=== PATIENT | female | born 1945 | race African-American/Black ===

== ENCOUNTER 2016-06-01 00:04 | Emergency (ER) | payer MEDICARE, OTHER ==
[2016-06-01 00:53] LABS: Basophils # (A) 0.1 k/uL (0-0.2); Basophils % (A) 1 %; CH 32.6; CHCM 33.7; Eosinophils # (A) 0.8 k/uL (0-0.7); Eosinophils % (A) 10 %; HCT 45.8 % (34.0-46.0); HDW 2.49; Luc # (Auto) 0.26; Luc % (Auto) 3; Lymphocytes # (A) 1.4 k/uL (1.0-4.8); Lymphocytes % (A) 18 %; MCH 31.7 pg (25.0-35.0); MCHC 32.6 g/dL (31.0-37.0); MCV 97.2 fL (80.0-100.0); Mean Platelet Volume 7.7; Monocytes # (A) 0.4 k/uL (0-1.0); Monocytes % (A) 5 %; Neutrophils % (A) 62 %; RBC 4.72 m/uL (3.80-5.40); RDW 13.6 % (11.5-15.5); WBC 8.1 k/uL (3.8-10.6); WBC (Perox) 7.89
[2016-06-01 01:00] LABS: Appearance,Urine Cloudy (Clear); Bilirubin,Urine 2+ (Negative); Glucose,Urine (UA) Negative (Negative); Ketones,Urine Negative (Negative); Leukocyte Esterase,Urine Large (Negative); Mucus,Urine Occasional /hpf; Nitrite,Urine Negative (Negative); PH, Urine 5.5 (5.0-8.0); Particle Count 12824; Protein,Urine Trace (Negative); RBC,Urine 10 /hpf (0-5); Specific Gravity,Urine 1.021 (1.001-1.035); Squamous Epithelial Cell,Urine 6 /hpf (0-4); UA Billing (MACRO vs. MICRO) MICRO
[2016-06-01 01:01] LABS: ALT 34 U/L (9-52); AST 27 U/L (14-36); Alkaline Phosphatase 119 U/L (38-126); Anion Gap 14 mmol/L; Blood Urea Nitrogen 13 mg/dL (7-17); Calcium 9.5 mg/dL (8.4-10.2); Carbon Dioxide 24 mmol/L (22-30); Chloride 103 mmol/L (98-107); Glucose 110 mg/dL (74-99); Non-African American GFR(MDRD) >60 (>60 ml/min/1.73 sqM); Potassium 3.3 mmol/L (3.5-5.1); Sodium 141 mmol/L (137-145); Total Bilirubin 0.9 mg/dL (0.2-1.3); Total Protein 8.6 g/dL (6.3-8.2)
--- NOTE | 2016-06-01 01:26 | XR ---
EXAM: XR Right Hip With Pelvis When Performed, 2 or 3 Views. CLINICAL HISTORY: Reason: Pain TECHNIQUE: Two or three views of the right hip, with pelvis when performed. COMPARISON: No relevant prior studies available. FINDINGS: Bones/joints: Degenerative changes of bilateral hips and the lower lumbar spine. No acute fracture or malalignment. Soft tissues: Unremarkable. IMPRESSION: Osteoarthritis of bilateral hips.
--- NOTE | 2016-06-01 01:39 | ED ---
Psych HPI - General Chief Complaint: Psychiatric Symptoms Stated Complaint: mental health Time Seen by Provider: 06/01/16 00:34 Source: patient, RN notes reviewed Mode of arrival: wheelchair Limitations: no limitations - History of Present Illness Initial Comments: 70-year-old female presents emergency Department chief complaint depression, suicidal ideations. Patient states that everything her life is very negative and states that she just feels hopeless. Patient does see Dr. Glasgow her psychiatrist. Patient's medications with no help. Patient states she has a plan to pull a gun on police so they shoot her to . Patient denies any homicidal thoughts. Patient states she has been using marijuana. Patient denies any alcohol use. Patient denies any chest pain, shortness breath, headache, dizziness, back pain, nausea vomiting diarrhea constipation. Patient has chronic right hip pain in which she has not seen orthopedic doctor for as directed. - Related Data Home Medications Medication Instructions Recorded Confirmed Cetirizine HCl [Zyrtec] 10 mg PO DAILY 07/29/13 03/16/16 Venlafaxine HCl [Effexor XR] 150 mg PO DAILY 07/29/13 03/16/16 amLODIPine BESYLATE [Norvasc] 5 mg PO DAILY 10/16/13 03/16/16 Quinapril HCl [Accupril] 20 mg PO DAILY 12/25/14 03/16/16 Metoprolol Succinate [Toprol XL] 25 mg PO DAILY 03/16/16 03/16/16 Previous Rx's Medication Instructions Recorded Calcium Carbonate [Calcium] 600 mg PO BID #60 tablet 09/04/15 Thiamine HCl [Vitamin B-1] 100 mg PO DAILY #60 tablet 09/04/15 Nystatin 100,000 Unit/ml Susp 4 ml PO QID #50 ml 03/16/16 [Mycostatin Oral Susp] Omeprazole [PriLOSEC] 40 mg PO AC-BRKFST #14 capsule. 03/16/16 Allergies Allergy/AdvReac Type Severity Reaction Status Date / Time Tetanus Vaccines and Toxoid Allergy Mild Swelling Verified 06/01/16 00:19 tetracycline Allergy Nausea,ABDOMINAL Verified 06/01/16 00:19 PAIN Review of Systems ROS Statement: Those systems with pertinent positive or pertinent negative responses have been documented in the HPI. ROS Other: All systems not noted in ROS Statement are negative. Past Medical History Past Medical History: Asthma, GERD/Reflux, Hypertension, Pneumonia Additional Past Medical History / Comment(s): Hayfever, seasonal allergies, chronic back pain, past MADALYN but not since wt loss, internal hemorrhoids, anemia , migraines when she had menses. Pt is Jehovah Witness-No blood. History of Any Multi-Drug Resistant Organisms: None Reported Past Surgical History: Adenoidectomy, Appendectomy, Bariatric Surgery, Section, Cholecystectomy, Hysterectomy, Orthopedic Surgery, Tonsillectomy Additional Past Surgical History / Comment(s): Knee Replacements R & L, GASTRIC Sleeve, EGDs, colonoscopy, L breast benign bx, x 1. Past Anesthesia/Blood Transfusion Reactions: Previous Problems w/ Anesthesia Additional Past Anesthesia/Blood Transfusion Reaction / Comment(s): "felt like an elephant was sitting on my chest. It happened twice." Past Psychological History: Anxiety, Depression Additional Psychological History / Comment(s): Pt states she lives with her mother and her son and patrizia-in-law. She has hx of depression and states she recently ran out of one of her antidepressants and during that time had increased depression but no thoughts of suicide or plans of suicide. Pt states at the age of 14 yrs she attempted suicide with overdose. No other attempts. Pt is independent. Smoking Status: Former smoker Past Alcohol Use History: Occasional Additional Past Alcohol Use History / Comment(s): Pt states she started smoking in 1964 and quit in 1979. She states she drinks more alcohol if her depression increases but not more than 7 drinks a week at this time. Past Drug Use History: Marijuana Additional Drug Use History / Comment(s): Pt states she occasionally uses marijuana oils. - Past Family History Father Family Medical History: Coronary Artery Disease (CAD) Additional Family Medical History / Comment(s): Father is . He had ASHD. Mother Family Medical History: No Reported History Additional Family Medical History / Comment(s): Mother is living and healthy. General Exam Limitations: no limitations General appearance: alert, in no apparent distress Head exam: Present: atraumatic, normocephalic, normal inspection Eye exam: Present: normal appearance, PERRL, EOMI. Absent: scleral icterus, conjunctival injection, periorbital swelling ENT exam: Present: normal oropharynx Neck exam: Present: normal inspection, full ROM. Absent: tenderness, meningismus, lymphadenopathy Respiratory exam: Present: normal lung sounds bilaterally. Absent: respiratory distress, wheezes, rales, rhonchi, stridor Cardiovascular Exam: Present: regular rate, normal rhythm, normal heart sounds. Absent: systolic murmur, diastolic murmur, rubs, gallop, clicks GI/Abdominal exam: Present: soft, normal bowel sounds. Absent: distended, tenderness, guarding, rebound, rigid Extremities exam: Present: other (Patient has good range of motion of the right hip with minimal tenderness neurovascular intact) Back exam: Present: full ROM. Absent: tenderness Neurological exam: Present: alert, oriented X3, CN II-XII intact Psychiatric exam: Present: flat affect Skin exam: Present: warm, dry, intact, normal color. Absent: rash Course Vital Signs 06/01/16 00:11 Temperature 99.2 F Pulse Rate 90 Respiratory 18 Rate Blood Pressure 170/92 O2 Sat by Pulse 100 Oximetry Medical Decision Making - Medical Decision Making 70-year-old female presented for depression suicidal lesions. Patient was evaluated by psychiatric services and will be transferred to psychiatric place. - Lab Data Result diagrams: 06/01/16 00:45 06/01/16 00:45 Lab Results 06/01/16 06/01/16 06/01/16 Range/Units 00:45 00:45 00:45 WBC 8.1 (3.8-10.6) k/uL RBC 4.72 (3.80-5.40) m/uL Hgb 15.0 (11.4-16.0) gm/dL Hct 45.8 (34.0-46.0) % MCV 97.2 (80.0-100.0) fL MCH 31.7 (25.0-35.0) pg MCHC 32.6 (31.0-37.0) g/dL RDW 13.6 (11.5-15.5) % Plt Count 258 (150-450) k/uL Neutrophils % 62 % Lymphocytes % 18 % Monocytes % 5 % Eosinophils % 10 % Basophils % 1 % Neutrophils # 5.0 (1.3-7.7) k/uL Lymphocytes # 1.4 (1.0-4.8) k/uL Monocytes # 0.4 (0-1.0) k/uL Eosinophils # 0.8 H (0-0.7) k/uL Basophils # 0.1 (0-0.2) k/uL Sodium 141 (137-145) mmol/L Potassium 3.3 L (3.5-5.1) mmol/L Chloride 103 (98-107) mmol/L Carbon Dioxide 24 (22-30) mmol/L Anion Gap 14 mmol/L BUN 13 (7-17) mg/dL Creatinine 0.70 (0.52-1.04) mg/dL Est GFR (MDRD) Af Amer >60 (>60 ml/min/1.73 sqM) Est GFR (MDRD) Non-Af >60 (>60 ml/min/1.73 sqM) Glucose 110 H (74-99) mg/dL Calcium 9.5 (8.4-10.2) mg/dL Total Bilirubin 0.9 (0.2-1.3) mg/dL AST 27 (14-36) U/L ALT 34 (9-52) U/L Alkaline Phosphatase 119 (38-126) U/L Total Protein 8.6 H (6.3-8.2) g/dL Albumin 4.4 (3.5-5.0) g/dL Urine Color Yellow Urine Appearance Cloudy H (Clear) Urine pH 5.5 (5.0-8.0) Ur Specific [place] 1.021 (1.001-1.035) Urine Protein Trace H (Negative) Urine Glucose (UA) Negative (Negative) Urine Ketones Negative (Negative) Urine Blood Negative (Negative) Urine Nitrite Negative (Negative) Urine Bilirubin 2+ H (Negative) Urine Urobilinogen 4.0 (<2.0) mg/dL Ur Leukocyte Esterase Large H (Negative) Urine RBC 10 H (0-5) /hpf Ur Squamous Epith Cells 6 H (0-4) /hpf Hyaline Casts 55 H (0-2) /lpf Urine Mucus Occasional H (None) /hpf Urine Opiates Screen Not Detected (NotDetected) Ur Oxycodone Screen Not Detected (NotDetected) Urine Methadone Screen Not Detected (NotDetected) Ur Propoxyphene Screen Not Detected (NotDetected) Ur Barbiturates Screen Not Detected (NotDetected) U Tricyclic Antidepress Not Detected (NotDetected) Ur Phencyclidine Scrn Not Detected (NotDetected) Ur Amphetamines Screen Not Detected (NotDetected) U Methamphetamines Scrn Detected H (NotDetected) U Benzodiazepines Scrn Not Detected (NotDetected) Urine Cocaine Screen Not Detected (NotDetected) U Marijuana (THC) Screen Detected H (NotDetected) Disposition Clinical Impression: Depression, Suicidal ideation Disposition: TRANSFER TO PSYCH HOSP/UNIT Condition: Stable Time of Disposition: 03:46
[2016-06-01] MEDS ORDERED: POTASSIUM CHLORIDE ER 20 MEQ TAB.ER PO STA (10:00)
[2016-06-01] MEDS ORDERED: NITROFURANTOIN MONOHYD/M-CRYST 100 MG CAP PO STA (10:01)
[2016-06-01] MEDS ORDERED: ACETAMINOPHEN TAB 500 MG TAB PO STA (15:31)
[2016-06-01] MEDS ORDERED: IBUPROFEN 600 MG TAB PO STA (15:47)
[2016-06-01] MEDS ORDERED: amLODIPine 5 MG TAB PO STA (16:54)
[2016-06-01] MEDS ORDERED: LISINOPRIL 20 MG TAB PO STA (16:55)
[2016-06-01 17:48] VITALS: BP 171/98; PULSE 100; RESP 20; TEMP 99.3
== END 2016-06-01 18:47 ==
LOC: EC 00:04
DX: F32.9 Major depressive disorder, single episode, unspecified (principal); R45.851 Suicidal ideations; M25.551 Pain in right hip; G89.29 Other chronic pain; I10 Essential (primary) hypertension; F41.9 Anxiety disorder, unspecified; Z87.891 Personal history of nicotine dependence; Z79.899 Other long term (current) drug therapy; Z88.7 Allergy status to serum and vaccine; Z88.1 Allergy status to other antibiotic agents
CPT/HCPCS: 36415; 73502; 80053; 80306; 81001; 82075; 85025; 99285

== ENCOUNTER → 2016-07-06 | Outpatient (CLI) | payer MEDICARE, OTHER ==
--- NOTE | 2016-07-06 15:41 | MR ---
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 There is no hemorrhage or hydrocephalus. Scattered hyperintensities are present within the deep white matter on inversion recovery and T2-weighted sequences, approximat andrew 20-30 lesions are present. There are normal vascular flow voids, nodularity within the internal c arotid artery on the right at the level of the cavernous portion is likely due to tortuosity, difficu lt to exclude aneurysm. Mild inflammatory change present in the ethmoid air cells. The orbits show sy mmetric appearance. Cerebellopontine angles, corpus callosum, pituitary, cervical medullary junction are within normal limits. IMPRESSION: Nonspecific white matter demyelination likely related to chronic small vessel ischemia. D ifficult to exclude internal carotid artery aneurysm, consider com[place] of [place] MRA
== END ==
LOC: RADMRIMAIN 11:29
PROVIDERS: ATTEND Internal Medicine
DX: G83.20 Monoplegia of upper limb affecting unspecified side (principal); R90.89 Other abnormal findings on diagnostic imaging of central nervous system
CPT/HCPCS: 70551

== ENCOUNTER → 2016-07-27 | Outpatient (CLI) | payer MEDICARE, OTHER ==
--- NOTE | 2016-07-27 14:02 | MR ---
EXAMINATION TYPE: MR angio head wo con DATE OF EXAM: 07/27/2016 9:20 AM COMPARISON: 07/06/2016 MRI brain HISTORY: Abnormal findings on diagnostic imaging CONTRAST: None TECHNIQUE: Multiplanar multiecho imaging on a 3.0 Maria Luz magnet is performed through the the [place] [facility]. 3-D [id number] imaging is performed. Source images are reviewed on the computer in the axi al plane. Reconstructed images rotating on the computer are reviewed. FINDINGS: The internal carotid arteries bifurcate normally into A1 and M1 segments. The A2 segments are normal. Middle cerebral artery branches are normal. Anterior communicating artery is patent. The right posterior communicating artery is patent. The left posterior communicating artery is patent. Attention is paid to the carotid siphons. No focal aneurysmal dilatation is evident. Three-D reconstr ucted images suggest some tortuosity of the right carotid siphon. Vertebrobasilar arteries within the [id number] are normal. Posterior cerebral vasculature is norm al. No suspicious aneurysm or aneurysmal dilatation is evident. No obstructions are identified. No significant flow-limiting stenosis is evident. IMPRESSIONS: 1. NORMAL MRA ELIM IRA OF DIAL. 2. Prominence of the right carotid siphon likely related to tortuosity.
== END | disposition home or self-care (01) ==
LOC: RADMRIMAIN 08:41
PROVIDERS: ATTEND Internal Medicine
DX: R93.8 Abnormal findings on diagnostic imaging of other specified body structures (principal)
CPT/HCPCS: 70544

== ENCOUNTER → 2016-10-04 | Outpatient (CLI) | payer MEDICARE ==
[2016-10-04 16:07] VITALS: BP 151/92; PULSE 84; RESP 16; TEMP 98.9; BMI 32.0
[2016-10-04 17:41] LABS: CH 31.9; CHCM 32.8; HCT 37.2 % (34.0-46.0); HDW 2.59; HGB 12.8 gm/dL (11.4-16.0); MCH 33.5 pg (25.0-35.0); MCHC 34.3 g/dL (31.0-37.0); MCV 97.7 fL (80.0-100.0); Mean Platelet Volume 7.2; RBC 3.81 m/uL (3.80-5.40); RDW 13.4 % (11.5-15.5); WBC 5.7 k/uL (3.8-10.6)
[2016-10-04 17:47] LABS: Partial Thromboplastin Time 22.6 sec (22.0-30.0); Prothrombin Time 10.5 sec (9.0-12.0)
[2016-10-04 17:56] LABS: ALT 33 U/L (9-52); AST 23 U/L (14-36); Alkaline Phosphatase 92 U/L (38-126); Anion Gap 12 mmol/L; Blood Urea Nitrogen 16 mg/dL (7-17); Calcium 9.5 mg/dL (8.4-10.2); Carbon Dioxide 24 mmol/L (22-30); Chloride 106 mmol/L (98-107); Cholesterol 216 mg/dL (<200); Glucose 80 mg/dL (74-99); HDL Cholesterol 70 mg/dL (40-60); Iron 69 ug/dL (37-170); Magnesium 1.9 mg/dL (1.6-2.3); Non-African American GFR(MDRD) >60 (>60 ml/min/1.73 sqM); Phosphorous 3.4 mg/dL (2.5-4.5); Potassium 4.1 mmol/L (3.5-5.1); Sodium 142 mmol/L (137-145); Total Bilirubin 0.3 mg/dL (0.2-1.3); Total Protein 7.5 g/dL (6.3-8.2)
[2016-10-04 18:10] LABS: % Iron Saturation 22.3 % (20-50); Prealbumin 30 mg/dL (18-36); Total Iron Binding Capacity 310 ug/dL (265-497)
[2016-10-04 19:03] LABS: Vitamin B12 595 pg/mL
[2016-10-04 20:56] LABS: Hemoglobin A1C 5.5 % (4.2-6.1)
[2016-10-06 18:59] LABS: Selenium 133 mcg/L (63-160)
--- NOTE | 2016-10-29 00:01 | P.PN ---
Progress Note - Text DATE OF SERVICE: 10/04/2016. CHIEF COMPLAINT: Follow-up sleeve gastrectomy. HISTORY OF PRESENT ILLNESS: Dean Lopes is a 70-year-old female who is status post sleeve gastrectomy July 2012. She is 4 years out. Her highest weight in the program is 242 pounds. Her ideal body weight for her 5 feet 5-1/2 inches frame is 149 pounds. Today she comes in weighing 195 pounds. She has gained 4 pounds in 1 year. Her body mass index has been maintained reduced from 39.7 down to 32.0. She has maintained a 47 pound weight loss. Her percent excess weight loss is 51%. She denies any dysphagia or gastroesophageal reflux disease. She reports troubles with her memory including her hands. She has had troubles with depression. She is evaluating for more weight loss. She also reports not eating the right foods since her weight loss. PAST MEDICAL HISTORY: 1. Asthma. 2. Gastroesophageal reflux disease. 3. Hypertension. 4. Osteoarthritis. 5. Seasonal allergies. 6. Depression. 7. Morbid obesity. PAST SURGICAL HISTORY: 1. EGD. 2. Status post sleeve gastrectomy. 3. Laparoscopic cholecystectomy. MEDICATIONS: 1. Buspirone 2. Norvasc 3. Venlafaxine 4. Thiamine 5. Accupril 6. Metoprolol 7. Antivert 8. Prevacid 9. Etodolac 10. Zyrtec ALLERGIES: 1. TETANUS. 2. TETRACYCLINE. SOCIAL HISTORY: Reports alcohol use. Denies any active tobacco use. FAMILY HISTORY: History of morbid obesity, diabetes, including sudden . REVIEW OF SYSTEMS: CONSTITUTIONAL: [place] body weight of 149 pounds for her 5 feet 5-1/2 frames. Body mass index reduced from 39.7 down to 32.0. MUSCULOSKELETAL: Resolved osteoarthritis of the knees. His osteoarthritis of the lower back. HEENT: Denies trouble with vision or hearing. ENDOCRINE: No reports of thyroid disorders or blood sugar glucose intolerance. CARDIOVASCULAR: No reports of recent heart attack. Has hyperlipidemia. RESPIRATORY: History of asthma. Denies any recent pneumonia. GI: No reports of blood in stools. No reports of dumping syndrome. No recent gastroesophageal reflux disease. NEURO: No reports of headaches or seizure disorders. PSYCH: History of depression with suicidal ideation. She was hospitalized for mental health disorder recently. SKIN: No skin cancer. No rash. PHYSICAL EXAM: VITAL SIGNS: 5 feet 5-1/2, 195 pounds. Body mass index of 32.0. Vital Signs 10/04/16 16:02 Temperature 98.9 F Pulse Rate 84 Respiratory 16 Rate Blood Pressure 151/92 ABDOMEN: Soft, nontender. No palpable incisional hernias. No signs of panniculitis. GENERAL: Well-developed female in no acute distress. HEENT: No sclera icterus. Extraocular movements grossly intact. Moist buccal mucosa. Head is atraumatic, normocephalic. Hears conversational speech. No nasal drainage. NECK: Supple without lymphadenopathy. No JV distention. CHEST: Non-labored respirations and equal bilateral excursions. CARDIOVASCULAR: Regular rate and rhythm. Palpable 2+ radial pulses. MUSCULOSKELETAL: No clubbing, cyanosis or edema. NEUROLOGIC: No focal or lateralizing signs. Cranial nerves II through XII grossly intact. PSYCH: Appropriate affect. Alert and oriented to person, place and time. SKIN: Well perfused. Good skin turgor. LABS: Elevated parathyroid, low thiamine, low vitamin D. Laboratory Last Values WBC 5.7 k/uL (3.8-10.6) 10/04/16 17:25 RBC 3.81 m/uL (3.80-5.40) 10/04/16 17:25 Hgb 12.8 gm/dL (11.4-16.0) 10/04/16 17:25 Hct 37.2 % (34.0-46.0) 10/04/16 17:25 MCV 97.7 fL (80.0-100.0) 10/04/16 17:25 MCH 33.5 pg (25.0-35.0) 10/04/16 17:25 MCHC 34.3 g/dL (31.0-37.0) 10/04/16 17:25 RDW 13.4 % (11.5-15.5) 10/04/16 17:25 Plt Count 266 k/uL (150-450) 10/04/16 17:25 PT 10.5 sec (9.0-12.0) 10/04/16 17:25 INR 1.0 (<1.2) 10/04/16 17:25 APTT 22.6 sec (22.0-30.0) 10/04/16 17:25 Sodium 142 mmol/L (137-145) 10/04/16 17:25 Potassium 4.1 mmol/L (3.5-5.1) 10/04/16 17:25 Chloride 106 mmol/L (98-107) 10/04/16 17:25 Carbon Dioxide 24 mmol/L (22-30) 10/04/16 17:25 Anion Gap 12 mmol/L 10/04/16 17:25 BUN 16 mg/dL (7-17) 10/04/16 17:25 Creatinine 0.70 mg/dL (0.52-1.04) 10/04/16 17:25 Est GFR (MDRD) Af Amer >60 (>60 ml/min/1.73 sqM) 10/04/16 17:25 Est GFR (MDRD) Non-Af >60 (>60 ml/min/1.73 sqM) 10/04/16 17:25 Glucose 80 mg/dL (74-99) 10/04/16 17:[address] Glu mg/dL 111 mg/dL 10/04/16 17:25 Hemoglobin A1c 5.5 % (4.2-6.1) 10/04/16 17:25 Calcium 9.5 mg/dL (8.4-10.2) 10/04/16 17:25 Phosphorus 3.4 mg/dL (2.5-4.5) 10/04/16 17:25 Magnesium 1.9 mg/dL (1.6-2.3) 10/04/16 17:25 Iron 69 ug/dL (37-170) 10/04/16 17:25 TIBC 310 ug/dL (265-497) 10/04/16 17:25 % Saturation 22.3 % (20-50) 10/04/16 17:25 Ferritin 143 ng/mL (11-264) 10/04/16 17:25 Total Bilirubin 0.3 mg/dL (0.2-1.3) 10/04/16 17:25 AST 23 U/L (14-36) 10/04/16 17:25 ALT 33 U/L (9-52) 10/04/16 17:25 Alkaline Phosphatase 92 U/L (38-126) 10/04/16 17:25 Total Protein 7.5 g/dL (6.3-8.2) 10/04/16 17:25 Albumin 4.0 g/dL (3.5-5.0) 10/04/16 17:25 Prealbumin 30 mg/dL (18-36) 10/04/16 17:25 Triglycerides 238 mg/dL (<150) H 10/04/16 17:25 Cholesterol 216 mg/dL (<200) H 10/04/16 17:25 LDL Cholesterol, Calc 98 mg/dL (0-99) 10/04/16 17:25 HDL Cholesterol 70 mg/dL (40-60) H 10/04/16 17:25 Vitamin A 60 ug/dL (38-106) 10/04/16 17:25 Vitamin B1 33 ug/L (38-122) L 10/04/16 17:25 Vitamin B12 595 pg/mL 10/04/16 17:25 Vitamin D 25-Hydroxy 22.2 ng/mL (30.0-100.0) L 10/04/16 17:25 Folate 10.60 ng/mL 10/04/16 17:25 TSH 0.635 mIU/L (0.465-4.680) 10/04/16 17:25 PTH Intact 105.8 pg/mL (14.0-72.0) H 10/04/16 17:25 Copper 1223 ug/L (810-1990) 10/04/16 17:25 Selenium 133 mcg/L (63-160) 10/04/16 17:25 Zinc 82 ug/dL (60-130) 10/04/16 17:25 ASSESSMENT: 1. Morbid obesity, now resolved. 2. Body mass index reduced from 39.7 down to 32. 3. Status post sleeve gastrectomy. 4. Hypertensive heart disease. 5. Depression with previous history of suicidal ideation. 6. Thiamine deficiency. 7. Vitamin D deficiency. 8. Secondary hyperparathyroidism. 9. Dietary surveillance and counseling. PLAN: 1. Recommend treatment of thiamine deficiency with infusions and oral supplement. 2. Recommending calcium intake of [id number] mg daily. 3. Recommend vitamin D supplement 50,000 units weekly. 4. Recommend evaluation with bariatric dietitian.
== END | disposition home or self-care (01) ==
LOC: BARWHC3 14:55
PROVIDERS: ATTEND Surgery Plastic and Reconstructive Surgery
DX: E21.1 Secondary hyperparathyroidism, not elsewhere classified (principal); I11.9 Hypertensive heart disease without heart failure; F32.9 Major depressive disorder, single episode, unspecified; E55.9 Vitamin D deficiency, unspecified; E51.9 Thiamine deficiency, unspecified; K21.9 Gastro-esophageal reflux disease without esophagitis; D50.8 Other iron deficiency anemias; K74.1 Hepatic sclerosis; K90.89 Other intestinal malabsorption; K50.90 Crohn's disease, unspecified, without complications; N19 Unspecified kidney failure; J30.2 Other seasonal allergic rhinitis; Z98.84 Bariatric surgery status; Z71.3 Dietary counseling and surveillance; Z79.1 Long term (current) use of non-steroidal anti-inflammatories (NSAID); Z79.899 Other long term (current) drug therapy; Z88.1 Allergy status to other antibiotic agents; Z88.7 Allergy status to serum and vaccine
CPT/HCPCS: 84255; 84134; 84425; 80061; 80053; 82607; 82728; 83036; 82525; 82746; 83540; 83550; 83735; 84100; 84443; 84590; 84630; 85027; 85610; 85730; 82306; 83970; G0463; 99211

== ENCOUNTER 2017-10-03 18:48 | Emergency (ER) | payer MEDICARE, OTHER ==
[2017-10-03 19:28] VITALS: TEMP 98
[2017-10-03 20:23] LABS: Basophils # (A) 0.1 k/uL (0-0.2); Basophils % (A) 1 %; Eosinophils # (A) 0.3 k/uL (0-0.7); Eosinophils % (A) 5 %; HCT 41.1 % (34.0-46.0); HGB 13.4 gm/dL (11.4-16.0); Lymphocytes # (A) 1.4 k/uL (1.0-4.8); Lymphocytes % (A) 22 %; MCH 30.6 pg (25.0-35.0); MCHC 32.5 g/dL (31.0-37.0); MCV 94.1 fL (80.0-100.0); Mean Platelet Volume 7.2; Monocytes # (A) 0.3 k/uL (0-1.0); Monocytes % (A) 5 %; Neutrophils # (A) 4.1 k/uL (1.3-7.7); Neutrophils % (A) 64 %; Platelet Count 279 k/uL (150-450); RBC 4.37 m/uL (3.80-5.40); RDW 13.1 % (11.5-15.5); WBC 6.4 k/uL (3.8-10.6)
[2017-10-03 20:35] LABS: Calcium 9.7 mg/dL (8.4-10.2); Potassium 3.8 mmol/L (3.5-5.1)
[2017-10-03 21:27] VITALS: BP 153/88; PULSE 71; RESP 18
[2017-10-03 21:38] LABS: Appearance,Urine Clear (Clear); Bilirubin,Urine 3+ (Negative); Blood,Urine Negative (Negative); Color,Urine Yellow; Glucose,Urine (UA) Negative (Negative); Ketones,Urine Negative (Negative); Leukocyte Esterase,Urine Moderate (Negative); Mucus,Urine Rare /hpf; Nitrite,Urine Negative (Negative); PH, Urine 5.5 (5.0-8.0); Protein,Urine Negative (Negative); RBC,Urine 1 /hpf (0-5); Specific Gravity,Urine 1.018 (1.001-1.035); Squamous Epithelial Cell,Urine 1 /hpf (0-4); Urobilinogen,Urine <2.0 mg/dL (<2.0); WBC,Urine 2 /hpf (0-5)
--- NOTE | 2017-10-03 21:47 | ED ---
General Adult HPI - General Chief complaint: Extremity Injury, Lower Stated complaint: Leg Swelling Source: patient Mode of arrival: ambulatory Limitations: no limitations - History of Present Illness Initial comments: Dictation was produced using [employer] dictation software. please excuse any grammatical, word or spelling errors. Chief Complaint: 72-year-old -Wallisian female with past medical history of asthma, GERD, hypertension presents with chief complaint of fever last night and extremity swelling. History of Present Illness: Patient is instructed to come from the urgent care for fever and right lower extremity swelling. Patient states that one month ago she fell through a deck where she injured her right lower extremity. She noticed some swelling of her right lower extremity that was persistent for the past month. She didn't denies any changes in that swelling. Denies any erythema or pain. Patient also had a temperature of 100 last night. She was concerned primarily regular to the urgent care. Patient denies any constitutional symptoms. No cough, sore throat, urinary symptoms, diarrhea, nausea or vomiting. The ROS documented in this emergency department record has been reviewed and confirmed by me. Those systems with pertinent positive or negative responses have been documented in the HPI. All other systems are other negative and/or noncontributory. - Related Data Home Medications Medication Instructions Recorded Confirmed Cetirizine HCl [Zyrtec] 10 mg PO DAILY 07/29/13 10/03/17 amLODIPine BESYLATE [Norvasc] 10 mg PO DAILY 10/16/13 10/03/17 Quinapril HCl [Accupril] 20 mg PO DAILY 12/25/14 10/03/17 Etodolac [Lodine] 400 mg PO BID 06/01/16 10/03/17 Venlafaxine HCl [Effexor XR] 75 mg PO DAILY 10/04/16 10/03/17 Rosuvastatin Calcium [Crestor] 5 mg PO HS 10/03/17 10/03/17 lamoTRIgine [LaMICtal] 25 mg PO HS 10/03/17 10/03/17 Allergies Allergy/AdvReac Type Severity Reaction Status Date / Time Tetanus Vaccines and Toxoid Allergy Mild Swelling Verified 10/03/17 19:52 tetracycline Allergy Nausea,ABDOMINAL Verified 10/03/17 19:52 PAIN Review of Systems ROS Statement: Those systems with pertinent positive or pertinent negative responses have been documented in the HPI. ROS Other: All systems not noted in ROS Statement are negative. Past Medical History Past Medical History: Asthma, GERD/Reflux, Hypertension, Pneumonia Additional Past Medical History / Comment(s): Hayfever, seasonal allergies, chronic back pain, past MADALYN but not since wt loss, internal hemorrhoids, anemia , migraines when she had menses. Pt is Jehovah Witness-No blood. History of Any Multi-Drug Resistant Organisms: None Reported Past Surgical History: Adenoidectomy, Appendectomy, Bariatric Surgery, Section, Cholecystectomy, Hysterectomy, Orthopedic Surgery, Tonsillectomy Additional Past Surgical History / Comment(s): Knee Replacements R & L, GASTRIC Sleeve, EGDs, colonoscopy, L breast benign bx, x 1. Past Anesthesia/Blood Transfusion Reactions: Previous Problems w/ Anesthesia Additional Past Anesthesia/Blood Transfusion Reaction / Comment(s): "felt like an elephant was sitting on my chest. It happened twice." Past Psychological History: Anxiety, Depression Smoking Status: Former smoker Past Alcohol Use History: Occasional Past Drug Use History: Marijuana - Past Family History Father Family Medical History: Coronary Artery Disease (CAD) Additional Family Medical History / Comment(s): Father is . He had ASHD. Mother Family Medical History: No Reported History Additional Family Medical History / Comment(s): Mother is living and healthy. General Exam - General Exam Comments Initial Comments: PHYSICAL EXAM: General Impression: Alert and oriented x3, not in acute distress HEENT: Normocephalic atraumatic, extra-ocular movements intact, pupils equal and reactive to light bilaterally, mucous membranes moist. Cardiovascular: Heart regular rate and rhythm, S1&S2 audible, no murmurs, rubs or gallops Chest: Lungs clear to auscultation bilaterally, no rhonchi, no wheeze, no rales Abdomen: Bowel sounds present, abdomen soft, non-tender, non-distended, no organomegaly Musculoskeletal: Pulses present and equal in all extremities, no peripheral edema, nonerythematous fluctuant mass over the right medial tibia area. Nontender to palpation. Area is not warm to the touch. Motor: Power 5/5 bilaterally, no focal deficits noted Neurological: CN II-XII grossly intact, no focal motor or sensory deficits noted Skin: Intact with no visualized rashes Psych: Normal affect and mood Limitations: no limitations Course Vital Signs 10/03/17 10/03/17 19:23 21:26 Temperature 98.0 F Pulse Rate 72 71 Respiratory 18 Rate Blood Pressure 139/87 153/88 O2 Sat by Pulse 94 L 100 Oximetry Medical Decision Making - Medical Decision Making ED course: 72-year-old -Wallis[place] female presents with fever measured at home to be 100 and right lower extremity swelling. At this point clinically, swelling is not consistent with abscess or other infectious process given benign appearing. Patient second complaint was of fever. She denies any infectious symptoms. Screening labs were obtained. Laboratory evaluation obtained. CBC is unremarkable. No leukocytosis. Metabolic panel is negative. Urinalysis shows no findings to suggest urinary tract infection. Vital signs here are within acceptable limits. At this point doubt any acute infectious, metabolic causes of her fever. It may be possible that one of the truck she is taking is causing her to have fevers. Doubt any infectious issue of the right lower extremity. No indication for incision and drainage or aspiration at this time. She is advised to follow-up with her primary care physician. Patient is understandable and agreeable. - Lab Data Result diagrams: 10/03/17 20:05 10/03/17 20:05 Lab Results 10/03/17 10/03/17 10/03/17 Range/Units 20:05 20:05 21:20 WBC 6.4 (3.8-10.6) k/uL RBC 4.37 (3.80-5.40) m/uL Hgb 13.4 (11.4-16.0) gm/dL Hct 41.1 (34.0-46.0) % MCV 94.1 (80.0-100.0) fL MCH 30.6 (25.0-35.0) pg MCHC 32.5 (31.0-37.0) g/dL RDW 13.1 (11.5-15.5) % Plt Count 279 (150-450) k/uL Neutrophils % 64 % Lymphocytes % 22 % Monocytes % 5 % Eosinophils % 5 % Basophils % 1 % Neutrophils # 4.1 (1.3-7.7) k/uL Lymphocytes # 1.4 (1.0-4.8) k/uL Monocytes # 0.3 (0-1.0) k/uL Eosinophils # 0.3 (0-0.7) k/uL Basophils # 0.1 (0-0.2) k/uL Sodium 138 (137-145) mmol/L Potassium 3.8 (3.5-5.1) mmol/L Chloride 104 (98-107) mmol/L Carbon Dioxide 25 (22-30) mmol/L Anion Gap 9 mmol/L BUN 22 H (7-17) mg/dL Creatinine 0.90 (0.52-1.04) mg/dL Est GFR (CKD-EPI)AfAm 74 (>60 ml/min/1.73 sqM) Est GFR (CKD-EPI)NonAf 64 (>60 ml/min/1.73 sqM) Glucose 94 (74-99) mg/dL Calcium 9.7 (8.4-10.2) mg/dL Urine Color Yellow Urine Appearance Clear (Clear) Urine pH 5.5 (5.0-8.0) Ur Specific [place] 1.018 (1.001-1.035) Urine Protein Negative (Negative) Urine Glucose (UA) Negative (Negative) Urine Ketones Negative (Negative) Urine Blood Negative (Negative) Urine Nitrite Negative (Negative) Urine Bilirubin 3+ H (Negative) Urine Urobilinogen <2.0 (<2.0) mg/dL Ur Leukocyte Esterase Moderate H (Negative) Urine RBC 1 (0-5) /hpf Urine WBC 2 (0-5) /hpf Ur Squamous Epith Cells 1 (0-4) /hpf Urine Mucus Rare H (None) /hpf Disposition Clinical Impression: Fever, Mass Disposition: HOME SELF-CARE Condition: Good Instructions: Fever in Adults (ED) Is patient prescribed a controlled substance at d/c from ED?: No Referrals: Joo Sanchez MD [Primary Care Provider] - 1-2 days Time of Disposition: 21:48
== END 2017-10-03 22:02 | disposition home or self-care (01) ==
LOC: EC 18:48
DX: R50.9 Fever, unspecified (principal); R22.9 Localized swelling, mass and lump, unspecified; I10 Essential (primary) hypertension; F32.9 Major depressive disorder, single episode, unspecified; F41.9 Anxiety disorder, unspecified; Z87.891 Personal history of nicotine dependence; Z79.899 Other long term (current) drug therapy; Z88.1 Allergy status to other antibiotic agents; Z88.7 Allergy status to serum and vaccine
CPT/HCPCS: 36415; 80048; 81001; 85025; 87040; 87086; 99283

== ENCOUNTER → 2017-10-24 | Outpatient (CLI) | payer MEDICARE, OTHER ==
[2017-10-24 14:08] LABS: Anion Gap 9 mmol/L; Blood Urea Nitrogen 18 mg/dL (7-17); Calcium 9.5 mg/dL (8.4-10.2); Carbon Dioxide 25 mmol/L (22-30); Chloride 107 mmol/L (98-107); Glucose 72 mg/dL (74-99); Potassium 3.9 mmol/L (3.5-5.1); Sodium 141 mmol/L (137-145)
== END | disposition home or self-care (01) ==
LOC: LABWHC1 12:15
PROVIDERS: ATTEND Internal Medicine
DX: R22.41 Localized swelling, mass and lump, right lower limb (principal)
CPT/HCPCS: 36415; 80048

== ENCOUNTER 2018-03-10 14:34 | Emergency (ER) | payer MEDICARE, OTHER ==
[2018-03-10 14:57] VITALS: RESP 18; TEMP 98.2
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
--- NOTE | 2018-03-10 15:55 | CT ---
EXAMINATION TYPE: CT cervical spine wo con DATE OF EXAM: 03/10/2018 COMPARISON: None HISTORY: left arm pain/decreased ROM following injury CT DLP: 385.2 mGycm Automated exposure control for dose reduction was used. TECHNIQUE: CT scan of the cervical spine is obtained without contrast, axial images are obtained, sa gittal and coronal reformatted images are also reviewed. FINDINGS: There is straightening of the cervical spine. There is degenerative disc space narrowing an d moderate spur formation throughout the cervical spine from C2 to T1. There is no compression fractu re. The facet joints are intact. The skull base is intact. I see no focal bone destruction. IMPRESSION: Moderately severe multilevel spondylotic changes. No fracture seen. There is 6 mm spinal stenosis at C5-6.
[2018-03-10] MEDS ORDERED: DEXAMETHASONE SOD PHOSPHATE 10 MG/ML 1 ML VIAL IM STA (16:07)
[2018-03-10 16:31] VITALS: BP 129/92; PULSE 73
== END 2018-03-10 16:38 | disposition home or self-care (01) ==
LOC: EC 14:34
DX: M54.12 Radiculopathy, cervical region (principal); M48.02 Spinal stenosis, cervical region; J45.909 Unspecified asthma, uncomplicated; I10 Essential (primary) hypertension; G89.29 Other chronic pain; F32.9 Major depressive disorder, single episode, unspecified; F41.9 Anxiety disorder, unspecified; Z87.891 Personal history of nicotine dependence; Z88.1 Allergy status to other antibiotic agents; Z88.7 Allergy status to serum and vaccine; Z79.1 Long term (current) use of non-steroidal anti-inflammatories (NSAID); Z79.899 Other long term (current) drug therapy; Z86.69 Personal history of other diseases of the nervous system and sense organs; Z98.1 Arthrodesis status; Z96.653 Presence of artificial knee joint, bilateral; Y04.2XXA Assault by strike against or bumped into by another person, initial encounter
CPT/HCPCS: 93005; 72125; 99284; 96372; J1100

== ENCOUNTER → 2018-06-19 | Outpatient (CLI) | payer MEDICARE, OTHER ==
[2018-06-19 15:20] VITALS: BP 145/86; PULSE 92; RESP 16; TEMP 98; BMI 33.3
--- NOTE | 2018-06-19 15:49 | P.PN ---
Subjective Progress Note Date: 06/19/18 HPI: She is up 13 pounds. No GERD. She had back surgery. ABDOMEN: ASSESSMENT: 1. Morbid obesity PLAN: 1. Recommend 2 week protein diet 2. Bariatric labs 3. EGD and colonoscopy due for GERD and screening. Objective - Vital Signs Vital signs: Vital Signs Temp 98 F 06/19/18 15:18 Pulse 92 06/19/18 15:18 Resp 16 06/19/18 15:18 BP 145/86 06/19/18 15:18 Pulse Ox Intake & Output 06/18/18 06/19/18 06/19/18 18:59 06:59 18:59 Weight 86.636 kg
[2018-06-19 17:34] LABS: HCT 37.9 % (34.0-46.0); HGB 12.8 gm/dL (11.4-16.0); MCHC 33.7 g/dL (31.0-37.0); Mean Platelet Volume 7.2; Partial Thromboplastin Time 23.6 sec (22.0-30.0); Platelet Count 348 k/uL (150-450); Prothrombin Time 10.4 sec (9.0-12.0); RBC 4.12 m/uL (3.80-5.40); RDW 14.4 % (11.5-15.5)
[2018-06-20 01:14] LABS: Hemoglobin A1C 5.7 % (4.0-6.0)
[2018-06-20 01:40] LABS: Iron Saturation 19.71 (12.00-45.00)
[2018-06-20 01:41] LABS: Parathyroid Hormone Intact 131.2 pg/mL (14.0-72.0)
[2018-06-20 01:42] LABS: Albumin 4.2 g/dL (3.80-4.90); Albumin/Globulin Ratio 1.45 (1.60-3.17); Anion Gap 7.4 mmol/L (4.00-12.00); Calcium 9.1 mg/dL (8.7-10.3); Carbon Dioxide 26.6 mmol/L (21.6-31.8); Globulin 2.9 g/dL (1.6-3.3); Magnesium 1.7 mg/dL (1.5-2.4); Phosphorus 3.7 mg/dL (2.4-5.1); Total Bilirubin 0.3 mg/dL (0.3-1.2); Total Protein 7.1 g/dL (6.2-8.2)
[2018-06-20 01:49] LABS: Folate, Serum 7.9 ng/mL; Vitamin D 25 Hydroxy 32.2 ng/mL (30.0-100.0)
[2018-06-20 13:43] LABS: Zinc, Serum 72 ug/dL (60-130)
[2018-06-21 06:33] LABS: Vit B1(Thiamine) 52 ug/L (38-122)
[2018-06-21 06:47] LABS: Vitamin A 60 ug/dL (38-106)
== END | disposition home or self-care (01) ==
LOC: BARWHC3 14:25
PROVIDERS: ATTEND Surgery Plastic and Reconstructive Surgery
DX: E66.01 Morbid (severe) obesity due to excess calories (principal); E21.1 Secondary hyperparathyroidism, not elsewhere classified; E89.1 Postprocedural hypoinsulinemia; D50.9 Iron deficiency anemia, unspecified; K90.9 Intestinal malabsorption, unspecified; E55.9 Vitamin D deficiency, unspecified; K76.9 Liver disease, unspecified; N19 Unspecified kidney failure; K50.90 Crohn's disease, unspecified, without complications; Z68.33 Body mass index [BMI] 33.0-33.9, adult
CPT/HCPCS: 84255; 84134; 84425; 80061; 80053; 82607; 82728; 82525; 82746; 83540; 83550; 83735; 84100; 84443; 84590; 84630; 85027; 85610; 85730; 82306; 83970; 83036; 36415; G0463; 99211

== ENCOUNTER 2018-07-02 22:50 | Observation (INO) | payer MEDICARE ==
[2018-07-02 23:19] LABS: Basophils % (A) 0 %; Eosinophils # (A) 0.1 k/uL (0-0.7); Eosinophils % (A) 2 %; HCT 39.9 % (34.0-46.0); HGB 12.9 gm/dL (11.4-16.0); Lymphocytes # (A) 0.3 k/uL (1.0-4.8); Lymphocytes % (A) 5 %; MCH 30.4 pg (25.0-35.0); MCHC 32.3 g/dL (31.0-37.0); MCV 94.2 fL (80.0-100.0); Mean Platelet Volume 7.1; Monocytes # (A) 0.2 k/uL (0-1.0); Monocytes % (A) 3 %; Neutrophils # (A) 5.8 k/uL (1.3-7.7); Neutrophils % (A) 88 %; Platelet Count 267 k/uL (150-450); RBC 4.23 m/uL (3.80-5.40); RDW 13.9 % (11.5-15.5); WBC 6.5 k/uL (3.8-10.6)
--- NOTE | 2018-07-02 23:22 | ED ---
Nausea/Vomiting/Diarrhea HPI - General Chief complaint: Abdominal Pain Stated complaint: abd pain,chest discomfort Time Seen by Provider: 07/02/18 23:00 Source: patient, EMS Mode of arrival: EMS Limitations: no limitations - History of Present Illness Initial comments: This patient is a 72-year-old woman who presents to be evaluated for vomiting and epigastric pain. The patient states that she had not been feeling quite right since the morning. She was having a little bit of intermittent nausea. She states around 4 PM she started having vomiting and she believes she has had about 6 episodes. She has not seen blood or bile. She also has been having epigastric pain since the vomiting started. She describes it as burning and aching. The pain has been moderate intensity. Patient did receive analgesic and antiemetic from EMS and is declining further medication at this time. In fact she is requesting to try taking something by mouth. MD complaint: nausea, vomiting Onset/Timin -: hour(s) Description of Vomiting: food contents Location: epigastric Radiation: none Severity: moderate Quality: other (Burning) Consistency: constant Improves with: none Worsens with: vomiting Associated Symptoms: nausea/vomiting - Related Data Home Medications Medication Instructions Recorded Confirmed Cetirizine HCl [Zyrtec] 10 mg PO DAILY 07/29/13 07/03/18 Quinapril HCl [Accupril] 20 mg PO DAILY 12/25/14 07/03/18 Etodolac [Lodine] 400 mg PO BID 06/01/16 07/03/18 lamoTRIgine [LaMICtal] 25 mg PO BID 10/03/17 07/03/18 Albuterol Inhaler [Ventolin Hfa 2 puff INHALATION RT-Q6H PRN 03/10/18 07/03/18 Inhaler] traZODone HCL 50 mg PO HS PRN 03/10/18 07/03/18 Calcium Carbonate [Calcium] 600 mg PO DAILY 07/03/18 07/03/18 Hydrochlorothiazide [Hydrodiuril] 12.5 mg PO DAILY 07/03/18 07/03/18 Metoprolol Succinate (ER) [Toprol 25 mg PO DAILY 07/03/18 07/03/18 XL] Venlafaxine HCl [Effexor XR] 150 mg PO DAILY 07/03/18 07/03/18 amLODIPine [Norvasc] 10 mg PO DAILY 07/03/18 07/03/18 Previous Rx's Medication Instructions Recorded Ciprofloxacin HCl [Cipro] 500 mg PO BID #4 tab 07/04/18 Loperamide [Imodium] 2 mg PO Q8H PRN #12 capsule 07/04/18 Pantoprazole [Protonix] 40 mg PO AC-BRKFST #30 tablet. 07/04/18 metroNIDAZOLE [Flagyl] 500 mg PO TID #6 tab 07/04/18 Allergies Allergy/AdvReac Type Severity Reaction Status Date / Time Tetanus Vaccines and Toxoid Allergy Mild Swelling Verified 07/02/18 23:38 tetracycline AdvReac Nausea,ABDOMINAL Verified 07/02/18 23:38 PAIN trout Allergy Rash/Hives Uncoded 07/03/18 06:19 Review of Systems ROS Statement: Those systems with pertinent positive or pertinent negative responses have been documented in the HPI. ROS Other: All systems not noted in ROS Statement are negative. Constitutional: Denies: fever, weakness Respiratory: Denies: cough, dyspnea Cardiovascular: Denies: chest pain, palpitations, edema Gastrointestinal: Reports: abdominal pain, nausea, vomiting. Denies: diarrhea, hematemesis, melena, hematochezia Genitourinary: Denies: dysuria, frequency, hematuria Musculoskeletal: Reports: back pain (Chronic) Skin: Denies: rash Neurological: Denies: headache Past Medical History Past Medical History: Asthma, GERD/Reflux, Hypertension, Pneumonia Additional Past Medical History / Comment(s): Hayfever, seasonal allergies, chronic back pain, past MADALYN but not since wt loss, internal hemorrhoids, anemia, migraines when she had menses. Pt is Jehovah Witness-No blood., History of Any Multi-Drug Resistant Organisms: None Reported Past Surgical History: Adenoidectomy, Appendectomy, Back Surgery, Bariatric Surgery, Section, Cholecystectomy, Hysterectomy, Orthopedic Surgery, Tonsillectomy Additional Past Surgical History / Comment(s): Knee Replacements R & L, GASTRIC Sleeve, EGDs, colonoscopy, L breast benign bx, x 1. Past Anesthesia/Blood Transfusion Reactions: Previous Problems w/ Anesthesia Additional Past Anesthesia/Blood Transfusion Reaction / Comment(s): "felt like an elephant was sitting on my chest. It happened twice." Past Psychological History: Anxiety, Depression Smoking Status: Former smoker Past Alcohol Use History: Occasional Past Drug Use History: Marijuana - Past Family History Father Family Medical History: Coronary Artery Disease (CAD) Additional Family Medical History / Comment(s): Father is . He had ASHD. Mother Family Medical History: No Reported History Additional Family Medical History / Comment(s): Mother is living and healthy. General Exam Limitations: no limitations General appearance: alert, in no apparent distress Head exam: Present: atraumatic, normocephalic Eye exam: Present: normal appearance. Absent: scleral icterus, conjunctival injection ENT exam: Present: normal oropharynx, mucous membranes moist Respiratory exam: Present: normal lung sounds bilaterally. Absent: respiratory distress, wheezes, rales, rhonchi, stridor Cardiovascular Exam: Present: regular rate, normal rhythm, normal heart sounds. Absent: systolic murmur, diastolic murmur, rubs, gallop GI/Abdominal exam: Present: soft, normal bowel sounds. Absent: distended, tenderness, guarding, rebound, rigid, mass, pulsatile mass, hernia Extremities exam: Present: normal inspection, normal capillary refill. Absent: pedal edema, calf tenderness Back exam: Present: normal inspection. Absent: CVA tenderness (R), CVA tenderness (L), vertebral tenderness Neurological exam: Present: alert Skin exam: Present: warm, dry, intact, normal color. Absent: rash Course Vital Signs 07/02/18 07/02/18 07/03/18 22:52 23:47 02:18 Temperature 99.3 F 99 F 100.1 F H Pulse Rate 93 87 94 Respiratory 16 18 18 Rate Blood Pressure 166/96 148/92 147/92 O2 Sat by Pulse 99 100 Oximetry 07/03/18 07/03/18 04:00 05:58 Temperature Pulse Rate 84 98 Respiratory 16 16 Rate Blood Pressure 144/94 133/94 O2 Sat by Pulse 100 98 Oximetry Medical Decision Making - Lab Data Result diagrams: 07/04/18 08:32 07/04/18 14:42 Lab Results 07/02/18 07/02/18 07/02/18 Range/Units 22:55 22:55 23:45 WBC 6.5 (3.8-10.6) k/uL RBC 4.23 (3.80-5.40) m/uL Hgb 12.9 (11.4-16.0) gm/dL Hct 39.9 (34.0-46.0) % MCV 94.2 (80.0-100.0) fL MCH 30.4 (25.0-35.0) pg MCHC 32.3 (31.0-37.0) g/dL RDW 13.9 (11.5-15.5) % Plt Count 267 (150-450) k/uL Neutrophils % 88 % Lymphocytes % 5 % Monocytes % 3 % Eosinophils % 2 % Basophils % 0 % Neutrophils # 5.8 (1.3-7.7) k/uL Lymphocytes # 0.3 L (1.0-4.8) k/uL Monocytes # 0.2 (0-1.0) k/uL Eosinophils # 0.1 (0-0.7) k/uL Basophils # 0.0 (0-0.2) k/uL Sodium 139 (137-145) mmol/L Potassium 3.3 L (3.5-5.1) mmol/L Chloride 107 (98-107) mmol/L Carbon Dioxide 22 (22-30) mmol/L Anion Gap 10 mmol/L BUN 10 (7-17) mg/dL Creatinine 0.50 L (0.52-1.04) mg/dL Est GFR (CKD-EPI)AfAm >90 (>60 ml/min/1.73 sqM) Est GFR (CKD-EPI)NonAf >90 (>60 ml/min/1.73 sqM) Glucose 119 H (74-99) mg/dL Calcium 9.3 (8.4-10.2) mg/dL Total Bilirubin 0.8 (0.2-1.3) mg/dL AST 24 (14-36) U/L ALT 25 (9-52) U/L Alkaline Phosphatase 134 H (38-126) U/L Troponin I (0.000-0.034) ng/mL Total Protein 7.4 (6.3-8.2) g/dL Albumin 4.1 (3.5-5.0) g/dL Amylase 71 (30-110) U/L Lipase 42 (23-300) U/L Urine Color Yellow Urine Appearance Clear (Clear) Urine pH 6.5 (5.0-8.0) Ur Specific [place] 1.017 (1.001-1.035) Urine Protein 2+ H (Negative) Urine Glucose (UA) Negative (Negative) Urine Ketones Negative (Negative) Urine Blood Negative (Negative) Urine Nitrite Negative (Negative) Urine Bilirubin Negative (Negative) Urine Urobilinogen <2.0 (<2.0) mg/dL Ur Leukocyte Esterase Negative (Negative) Urine RBC 1 (0-5) /hpf Urine WBC 9 H (0-5) /hpf Ur Squamous Epith Cells 3 (0-4) /hpf Urine Mucus Rare H (None) /hpf 07/03/18 Range/Units 02:28 WBC (3.8-10.6) k/uL RBC (3.80-5.40) m/uL Hgb (11.4-16.0) gm/dL Hct (34.0-46.0) % MCV (80.0-100.0) fL MCH (25.0-35.0) pg MCHC (31.0-37.0) g/dL RDW (11.5-15.5) % Plt Count (150-450) k/uL Neutrophils % % Lymphocytes % % Monocytes % % Eosinophils % % Basophils % % Neutrophils # (1.3-7.7) k/uL Lymphocytes # (1.0-4.8) k/uL Monocytes # (0-1.0) k/uL Eosinophils # (0-0.7) k/uL Basophils # (0-0.2) k/uL Sodium (137-145) mmol/L Potassium (3.5-5.1) mmol/L Chloride (98-107) mmol/L Carbon Dioxide (22-30) mmol/L Anion Gap mmol/L BUN (7-17) mg/dL Creatinine (0.52-1.04) mg/dL Est GFR (CKD-EPI)AfAm (>60 ml/min/1.73 sqM) Est GFR (CKD-EPI)NonAf (>60 ml/min/1.73 sqM) Glucose (74-99) mg/dL Calcium (8.4-10.2) mg/dL Total Bilirubin (0.2-1.3) mg/dL AST (14-36) U/L ALT (9-52) U/L Alkaline Phosphatase (38-126) U/L Troponin I <0.012 (0.000-0.034) ng/mL Total Protein (6.3-8.2) g/dL Albumin (3.5-5.0) g/dL Amylase (30-110) U/L Lipase (23-300) U/L Urine Color Urine Appearance (Clear) Urine pH (5.0-8.0) Ur Specific [place] (1.001-1.035) Urine Protein (Negative) Urine Glucose (UA) (Negative) Urine Ketones (Negative) Urine Blood (Negative) Urine Nitrite (Negative) Urine Bilirubin (Negative) Urine Urobilinogen (<2.0) mg/dL Ur Leukocyte Esterase (Negative) Urine RBC (0-5) /hpf Urine WBC (0-5) /hpf Ur Squamous Epith Cells (0-4) /hpf Urine Mucus (None) /hpf - EKG Data EKG shows normal: sinus rhythm, axis (Normal), intervals (Normal), QRS complexes (Normal), ST-T waves (Normal) Rate: normal (Rate 95 bpm) Disposition Clinical Impression: Nausea and vomiting, Abdominal pain Disposition: [facility] Condition: Fair
[2018-07-02 23:30] LABS: ALT 25 U/L (9-52); AST 24 U/L (14-36); Albumin 4.1 g/dL (3.5-5.0); Alkaline Phosphatase 134 U/L (38-126); Amylase 71 U/L (30-110); Anion Gap 10 mmol/L; Blood Urea Nitrogen 10 mg/dL (7-17); Calcium 9.3 mg/dL (8.4-10.2); Carbon Dioxide 22 mmol/L (22-30); Chloride 107 mmol/L (98-107); Glucose 119 mg/dL (74-99); Lipase 42 U/L (23-300); Potassium 3.3 mmol/L (3.5-5.1); Sodium 139 mmol/L (137-145); Total Bilirubin 0.8 mg/dL (0.2-1.3); Total Protein 7.4 g/dL (6.3-8.2)
[2018-07-03] LABS: Appearance,Urine Clear (Clear); Bilirubin,Urine Negative (Negative); Blood,Urine Negative (Negative); Color,Urine Yellow; Glucose,Urine (UA) Negative (Negative); Ketones,Urine Negative (Negative); Leukocyte Esterase,Urine Negative (Negative); Mucus,Urine Rare /hpf; Nitrite,Urine Negative (Negative); PH, Urine 6.5 (5.0-8.0); Protein,Urine 2+ (Negative); RBC,Urine 1 /hpf (0-5); Specific Gravity,Urine 1.017 (1.001-1.035); Squamous Epithelial Cell,Urine 3 /hpf (0-4); Urobilinogen,Urine <2.0 mg/dL (<2.0); WBC,Urine 9 /hpf (0-5)
[2018-07-03] MEDS ORDERED: MORPHINE SULFATE 4 MG/ML SYRINGE IV STA (02:27)
[2018-07-03] MEDS ORDERED: ONDANSETRON 4 MG/2 ML VIAL IVP STA (02:27)
--- NOTE | 2018-07-03 03:25 | CT ---
EXAM: CT Abdomen and Pelvis Without Intravenous Contrast CLINICAL HISTORY: ITS.REASON CT Reason: Pain TECHNIQUE: Axial computed tomography images of the abdomen and pelvis without intravenous contrast. CTDI is 12.3 mGy and DLP is 717.2 mGy-cm. This CT exam was performed using one or more of the following dose reduction techniques: automated exposure control, adjustment of the mA and/or kV according to patient size, and/or use of iterative reconstruction technique. COMPARISON: 03/16/2016. FINDINGS: Lung bases: Unremarkable. No mass. No consolidation. ABDOMEN: Liver: Unremarkable. Gallbladder and bile ducts: Cholecystectomy. No ductal dilation. Pancreas: Unremarkable. No ductal dilation. Spleen: Unremarkable. No splenomegaly. Adrenals: Unremarkable. No mass. Kidneys and ureters: 2.5 cm left renal cyst appears stable. No obstructing stones. No hydronephrosis. Stomach and bowel: Postop changes of the stomach. No obstruction. No mucosal thickening. PELVIS: Appendix: No findings to suggest acute appendicitis. Bladder: Unremarkable. No stones. Reproductive: Absent uterus. ABDOMEN and PELVIS: Intraperitoneal space: Unremarkable. No free air. No significant fluid collection. Bones/joints: Degenerative changes of the spine. Interval postoperative changes. L2-L4 laminectomies and disc spacers from L2-L5. Small amount of associated scarring or fluid in the midline posterior soft tissues. No acute fracture. No dislocation. Soft tissues: Small fat-containing umbilical hernia. Vasculature: Unremarkable. No abdominal aortic aneurysm. Lymph nodes: Unremarkable. No enlarged lymph nodes. IMPRESSION: 1. No evidence of acute abnormality within the abdomen and pelvis on this noncontrast study. 2. Degenerative changes of the spine. Interval postoperative changes. L2-L4 laminectomies and disc spacers from L2-L5. Small amount of associated scarring or fluid in the midline posterior soft tissues.
[2018-07-03] MEDS ORDERED: PROMETHAZINE INJ 25 MG in SODIUM CHLORIDE 0.9% 50 ML IVPB STA (03:39)
[2018-07-03] MEDS ORDERED: PROMETHAZINE 25 MG TAB PO PRN (05:30)
[2018-07-03] MEDS ORDERED: ONDANSETRON 4 MG/2 ML VIAL IVP PRN (05:30)
[2018-07-03] MEDS ORDERED: NALOXONE 0.4 MG/ML 1 ML VIAL IV PRN (05:30)
[2018-07-03] MEDS: SODIUM CHLORIDE 0.9% 1,000 ML IV SCH ×2 (06:07→13:29)
[2018-07-03] MEDS ORDERED: ACETAMINOPHEN TAB 325 MG TAB PO PRN (07:25)
[2018-07-03] MEDS ORDERED: FAMOTIDINE 20 MG TAB PO SCH (09:00)
[2018-07-03] MEDS ORDERED: traZODone HCL 50 MG TAB PO PRN (10:25)
[2018-07-03] MEDS ORDERED: ALBUTEROL NEBULIZED 2.5 MG/3 ML INHALATION PRN (10:25)
[2018-07-03] MEDS: LISINOPRIL 20 MG TAB PO SCH (10:57)
[2018-07-03] MEDS: VENLAFAXINE HCL ER 150 MG CAP PO SCH (10:57)
[2018-07-03] MEDS: HYDROCHLOROTHIAZIDE 12.5 MG CAP PO SCH (10:57)
[2018-07-03] MEDS: LORATADINE 10 MG TAB PO SCH (10:57)
[2018-07-03] MEDS: amLODIPine 10 MG TAB PO SCH (10:57)
[2018-07-03] MEDS: CALCIUM CARBONATE 500 MG CHEWABLE PO SCH (10:57)
[2018-07-03] MEDS: METOPROLOL SUCCINATE (ER) 25 MG TAB.ER.24H PO SCH (10:57)
[2018-07-03] MEDS: PANTOPRAZOLE 40 MG TABLET PO SCH (10:57)
[2018-07-03] MEDS: lamoTRIgine 25 MG TAB PO SCH ×2 (11:40→22:05)
[2018-07-03] MEDS: ETODOLAC 400 MG TAB PO SCH ×2 (11:40→22:05)
[2018-07-03] MEDS: ENOXAPARIN 40 MG/0.4 ML SYRINGE SQ SCH (13:23)
[2018-07-03] MEDS: metroNIDAZOLE 500 MG TAB PO SCH ×2 (13:24→22:04)
[2018-07-03] MEDS: CIPROFLOXACIN HCL 500 MG TAB PO SCH ×2 (13:27→22:05)
--- NOTE | 2018-07-03 21:43 | HP ---
HISTORY AND PHYSICAL DATE OF ADMISSION: 07/03/2018 DATE OF SERVICE: 07/03/2018 PRESENTING COMPLAINT: Nausea, vomiting. HISTORY OF PRESENTING COMPLAINT: This is a pleasant 72-year-old patient of Dr. Alejandro whose chronic stable medical conditions include asthma, GERD, hypertension, chronic low back pain. The patient presented with one day duration, started at 4:00 pm yesterday and upper abdominal pain. The patient did have a bowel movement. He had some fever and chills, just felt tired, exhausted, run down. Two other family members had been sick. The patient does not remember eating anything on towards. [place] somewhat better with IV fluids and admitted for the same. CT scan of the abdomen and pelvis is unremarkable. REVIEW OF SYSTEMS: CONSTITUTIONAL: Fever, weak and tired. Run down. HEENT: None. RESPIRATORY none. CARDIOVASCULAR: None. GASTROINTESTINAL as above. GENITOURINARY: None. MUSCULOSKELETAL: Chronic low back pain. DERMATOLOGICAL, HEMATOLOGIC, LYMPHATIC: none. PSYCHIATRY none. NEUROLOGICAL: None. PAST MEDICAL HISTORY: Asthma, GERD, hypertension, chronic low back pain, seasonal allergies, obstructive sleep apnea in the past not since weight loss, internal hemorrhoids, migraines, and the patient is a Shinto. PAST SURGICAL HISTORY: Adenoidectomy, appendectomy, back surgery, bariatric surgery, , cholecystectomy, hysterectomy, tonsillectomy, left knee replacement, gastric sleeve, EGDs, left breast benign biopsy. PSYCH HISTORY: Anxiety and depression. SOCIAL HISTORY: The patient lives with her mother and son. Smoked for about 15 years. Stopped in 1979. Does marijuana rarely. Drinks alcohol occasionally. FAMILY HISTORY: Reviewed, noncontributory to presentation. HOME MEDICATIONS: 1. Trazodone 50 mg at bedtime p.r.n. 2. Lamictal 25 mg b.i.d. 3. Norvasc 10 mg p.o. daily. 4. Effexor XR 150 mg p.o. daily. 5. Accupril 20 mg p.o. daily. 6. Toprol-XL 25 mg a day. 7. Prevacid 30 mg a day. 8. Hydrochlorothiazide 12.5 p.o. daily. 9. Lodine 400 mg p.o. b.i.d. 10.Zyrtec 10 mg p.o. daily. 11.Ventolin HFA 2 puffs q.6 p.r.n. 12.Calcium 600 mg p.o. daily. ALLERGIES: TO TETANUS, TETRACYCLINE, TROUT. PHYSICAL EXAMINATION: VITAL SIGNS: Temperature 100.1, pulse 94, respiratory 18, blood pressure 147/92, pulse ox 100 percent on room air. GENERAL APPEARANCE: Well built, BMI 31.8. Lying in bed, tired appearing. EYES: Pupils are equal. Conjunctivae normal. HEENT: External appearance of nose and ears normal. Oral cavity normal. NECK: JVD not raised. Mass not palpable. RESPIRATORY: Effort normal. LUNGS: Fair air entry. CARDIOVASCULAR: First and second sounds normal. No edema. ABDOMEN: Upper abdomen mild tenderness. No guarding or rigidity. Liver and spleen not palpable. LYMPHATICS: No lymph nodes palpable in the neck or axilla. PSYCHIATRY: Alert and oriented x3. Mood and affect normal. NEUROLOGICAL: Pupils equal. Cranial nerves grossly intact. Power and sensation grossly intact. INVESTIGATIONS: White count 6.5, hemoglobin 12.9, potassium 3.3, BUN 10, creatinine 0.5. EKG tracing personally reviewed by me shows normal sinus rhythm. CT scan of the abdomen and pelvis unremarkable. ASSESSMENT: 1. This is a patient who presents with one day duration of severe nausea, vomiting, abdominal pain, low-grade fever. Two other family members with the same. This is more classical of acute severe food poisoning, though this could be either bacterial or viral. 2. Intermittent asthma. 3. Gastroesophageal reflux disease. 4. Essential hypertension. 5. Chronic low back pain from osteoarthritis. PLAN: Patient is started on IV fluids, put on clear liquids. Diet to be advanced as tolerated. We will also put the patient on Cipro and Flagyl empirically to cover any bacterial components. Care was discussed with the patient. Questions were answered. Repeat labs in the morning. Copy to Dr. Iglesia Alejandro. MMHEATHERL / IRENE: [id number] /
[2018-07-04] MEDS: SODIUM CHLORIDE 0.9% 1,000 ML IV SCH ×2 (05:21→12:41)
[2018-07-04] MEDS: metroNIDAZOLE 500 MG TAB PO SCH ×2 (07:14→15:47)
[2018-07-04] MEDS: PANTOPRAZOLE 40 MG TABLET PO SCH (07:14)
[2018-07-04] MEDS: VENLAFAXINE HCL ER 150 MG CAP PO SCH (07:15)
[2018-07-04] MEDS: LORATADINE 10 MG TAB PO SCH (07:15)
[2018-07-04] MEDS: HYDROCHLOROTHIAZIDE 12.5 MG CAP PO SCH (07:15)
[2018-07-04] MEDS: amLODIPine 10 MG TAB PO SCH (07:15)
[2018-07-04] MEDS: LISINOPRIL 20 MG TAB PO SCH (07:15)
[2018-07-04] MEDS: METOPROLOL SUCCINATE (ER) 25 MG TAB.ER.24H PO SCH (07:15)
[2018-07-04] MEDS: ETODOLAC 400 MG TAB PO SCH (07:30)
[2018-07-04] MEDS: ENOXAPARIN 40 MG/0.4 ML SYRINGE SQ SCH (07:30)
[2018-07-04] MEDS: lamoTRIgine 25 MG TAB PO SCH (07:30)
[2018-07-04] MEDS: CIPROFLOXACIN HCL 500 MG TAB PO SCH (07:30)
[2018-07-04 09:25] LABS: ALT 30 U/L (9-52); AST 25 U/L (14-36); Albumin 3.3 g/dL (3.5-5.0); Alkaline Phosphatase 90 U/L (38-126); Anion Gap 8 mmol/L; Blood Urea Nitrogen 8 mg/dL (7-17); Calcium 8.9 mg/dL (8.4-10.2); Carbon Dioxide 21 mmol/L (22-30); Chloride 110 mmol/L (98-107); Glucose 127 mg/dL (74-99); Potassium 3.2 mmol/L (3.5-5.1); Sodium 139 mmol/L (137-145); Total Bilirubin 0.6 mg/dL (0.2-1.3); Total Protein 6.5 g/dL (6.3-8.2)
[2018-07-04 09:27] LABS: Basophils % (A) 1 %; Eosinophils # (A) 0.2 k/uL (0-0.7); Eosinophils % (A) 9 %; HCT 35.8 % (34.0-46.0); HGB 11.6 gm/dL (11.4-16.0); Lymphocytes # (A) 0.5 k/uL (1.0-4.8); Lymphocytes % (A) 19 %; MCH 30.5 pg (25.0-35.0); MCHC 32.3 g/dL (31.0-37.0); MCV 94.6 fL (80.0-100.0); Mean Platelet Volume 7.4; Monocytes # (A) 0.3 k/uL (0-1.0); Monocytes % (A) 10 %; Neutrophils # (A) 1.6 k/uL (1.3-7.7); Neutrophils % (A) 59 %; Platelet Count 212 k/uL (150-450); RBC 3.79 m/uL (3.80-5.40); RDW 13.8 % (11.5-15.5); WBC 2.7 k/uL (3.8-10.6)
[2018-07-04] MEDS ORDERED: Potassium Replacement Protocol 1 EACH MISC MISCELLANE PRN (09:46)
[2018-07-04] MEDS: POTASSIUM CHLORIDE ER 20 MEQ TAB.ER PO SCH ×2 (12:40→12:51)
[2018-07-04] MEDS: CALCIUM CARBONATE 500 MG CHEWABLE PO SCH (12:40)
[2018-07-04 13:18] VITALS: BP 116/80; RESP 18; TEMP 98.3
[2018-07-04 13:34] VITALS: PULSE 76
--- NOTE | 2018-07-05 07:33 | DS ---
DISCHARGE SUMMARY DATE OF ADMISSION: 07/03/2018 DATE OF DISCHARGE: 07/04/2018 FINAL DIAGNOSES: 1. Acute severe food poisoning, could be viral or bacterial. 2. Intermittent asthma. 3. Gastroesophageal reflux disease. 4. Essential hypertension. 5. Chronic low back pain from osteoarthritis. 6. Hypokalemia. HOSPITAL COURSE: This is a patient admitted with what appeared to severe food poisoning, nausea, vomiting, diarrhea, improved. We put on ciprofloxacin and Flagyl to which she improved. Potassium was supplemented. Doing much better today. Tolerating a diet. On examination, temperature 98.3, pulse 99, respirations 18, blood pressure 116/80, pulse ox 97% on room air. ABDOMEN: Soft, nontender. Care was discussed with the patient. INVESTIGATIONS: Potassium 3.2, repeat 3.5. DISCHARGE MEDICATIONS: 1. Zyrtec 10 mg p.o. daily. 2. Accupril 20 mg p.o. daily. 3. Lodine 400 mg b.i.d. 4. Lamictal 25 mg b.i.d. 5. Ventolin HFA 2 puffs q.6 p.r.n. 6. Trazodone 50 mg p.o. q.h.s. p.r.n. 7. Calcium 600 mg p.o. daily. 8. Hydrochlorothiazide 12.5 p.o. daily. 9. Toprol XL 25 mg p.o. daily. 10.Effexor XR 150 mg p.o. daily. 11.Norvasc 10 mg p.o. daily. 12.Cipro 500 mg b.i.d., 4 tablets. 13.Imodium 2 mg q.8 p.r.n., 12 capsules. 14.Protonix 40 mg before breakfast. 15.Flagyl 500 mg t.i.d., 6 tablets. DIET: Soft, bland. Follow up with Dr. Iglesia Alejandro in 3 days. MMODL / IJN: [id number] /
== END 2018-07-04 16:40 | disposition home or self-care (01) ==
LOC: EC 22:50 → 4SSUR 07-03 05:30
PROVIDERS: ADMIT Hospitalist; ATTEND Hospitalist
DX: T62.91XA Toxic effect of unspecified noxious substance eaten as food, accidental (unintentional), initial encounter (principal); K21.9 Gastro-esophageal reflux disease without esophagitis; J45.20 Mild intermittent asthma, uncomplicated; I10 Essential (primary) hypertension; G89.29 Other chronic pain; G47.33 Obstructive sleep apnea (adult) (pediatric); M54.5 Low back pain; J30.2 Other seasonal allergic rhinitis; J30.1 Allergic rhinitis due to pollen; G43.909 Migraine, unspecified, not intractable, without status migrainosus; K64.8 Other hemorrhoids; D64.9 Anemia, unspecified; F41.9 Anxiety disorder, unspecified; F32.9 Major depressive disorder, single episode, unspecified; M47.9 Spondylosis, unspecified; E87.6 Hypokalemia; Z79.899 Other long term (current) drug therapy; Z88.1 Allergy status to other antibiotic agents; Z91.018 Allergy to other foods; Z88.7 Allergy status to serum and vaccine; Z87.01 Personal history of pneumonia (recurrent); Z87.09 Personal history of other diseases of the respiratory system; Z90.49 Acquired absence of other specified parts of digestive tract; Z90.710 Acquired absence of both cervix and uterus; Z96.653 Presence of artificial knee joint, bilateral; Z98.84 Bariatric surgery status; Z87.891 Personal history of nicotine dependence; Z82.49 Family history of ischemic heart disease and other diseases of the circulatory system
CPT/HCPCS: 96376; 96361 ×2; 96374; 96375; 99285; 36415 ×2; 93005; 80053 ×2; 82150; 83690; 84132; 84484; 85025 ×2; 81001; 74176; G0378 ×2; J2270; J2550; J2405

== ENCOUNTER 2018-07-18 07:25 | Day surgery (SDC) | payer MEDICARE ==
[2018-07-17 15:20] VITALS: BMI 32.9
[~2018-07-18 07:25] MED LIST: LACTATED RINGERS 1,000 ML IV SCH; LIDOCAINE 1% 20 ML VIAL (10MG/ML) FOR IV START INTRADERMA PRN
--- NOTE | 2018-07-18 09:17 | P.GSHP ---
History of Present Illness H&P Date: 07/18/18 CHIEF COMPLAINT: GERD and colon screen HISTORY OF PRESENT ILLNESS: The patient is a 73-year-old female who presents with gastroesophageal reflux disease and need for colon screen. Upper and lower endoscopy were offered for further evaluation and management. PAST MEDICAL HISTORY: Please see list. PAST SURGICAL HISTORY: Please see list. MEDICATIONS: Please see list. ALLERGIES: Please see list. SOCIAL HISTORY: No illicit drug use FAMILY HISTORY: No reports of Crohn disease or ulcerative colitis. REVIEW OF ORGAN SYSTEMS: CONSTITUTIONAL: No reports of fevers or chills. GI: Denies any blood in stools or constipation. PHYSICAL EXAM: VITAL SIGNS: Stable GENERAL: Well-developed pleasant in no acute distress. HEENT: No scleral icterus. Extraocular movements grossly intact. Moist buccal mucosa. NECK: Supple without lymphadenopathy. CHEST: Unlabored respirations. Equal bilateral excursions. CARDIOVASCULAR: Regular rate and rhythm. Distal 2+ pulses. ABDOMEN: Soft, nondistended. MUSCULOSKELETAL: No clubbing, cyanosis, or edema. ASSESSMENT: 1. Gastroesophageal reflux disease 2. Colon screen. PLAN: 1. Recommend proceeding with an upper and lower endoscopy Past Medical History Past Medical History: Asthma, GERD/Reflux, Hypertension, Pneumonia Additional Past Medical History / Comment(s): Hayfever, seasonal allergies, chronic back pain, past MADALYN but not since wt loss, internal hemorrhoids, anemia, migraines when she had menses. Pt is Jehovah Witness-No blood., Dysphagia, and pain with swallowing (odynophagia), History of Any Multi-Drug Resistant Organisms: None Reported Past Surgical History: Adenoidectomy, Appendectomy, Back Surgery, Bariatric Surgery, Section, Cholecystectomy, Hysterectomy, Orthopedic Surgery, Tonsillectomy Additional Past Surgical History / Comment(s): Knee Replacements R & L, GASTRIC Sleeve, EGDs, colonoscopy, L breast benign bx, x 1. Past Anesthesia/Blood Transfusion Reactions: Previous Problems w/ Anesthesia Additional Past Anesthesia/Blood Transfusion Reaction / Comment(s): "felt like an elephant was sitting on my chest. It happened twice." Smoking Status: Former smoker - Past Family History Father Family Medical History: Coronary Artery Disease (CAD) Additional Family Medical History / Comment(s): Father is . He had ASHD. Mother Family Medical History: No Reported History Additional Family Medical History / Comment(s): Mother is living and healthy. Medications and Allergies Home Medications Medication Instructions Recorded Confirmed Type Cetirizine HCl [Zyrtec] 10 mg PO DAILY 07/29/13 07/17/18 History Quinapril HCl [Accupril] 20 mg PO DAILY 12/25/14 07/17/18 History Etodolac [Lodine] 400 mg PO BID 06/01/16 07/17/18 History lamoTRIgine [LaMICtal] 25 mg PO BID 10/03/17 07/17/18 History Albuterol Inhaler [Ventolin Hfa 2 puff INHALATION RT-Q6H PRN 03/10/18 07/17/18 History Inhaler] traZODone HCL 50 mg PO HS PRN 03/10/18 07/17/18 History Calcium Carbonate [Calcium] 600 mg PO DAILY 07/03/18 07/17/18 History Metoprolol Succinate (ER) [Toprol 25 mg PO DAILY 07/03/18 07/17/18 History XL] amLODIPine [Norvasc] 10 mg PO DAILY 07/03/18 07/17/18 History Pantoprazole [Protonix] 40 mg PO AC-BRKFST #30 tablet. 07/04/18 07/17/18 Rx Escitalopram [Lexapro] 5 mg PO DAILY 07/17/18 07/17/18 History Allergies Allergy/AdvReac Type Severity Reaction Status Date / Time Tetanus Vaccines and Toxoid Allergy Mild Swelling Verified 07/17/18 15:12 tetracycline AdvReac Nausea,ABDOMINAL Verified 07/17/18 15:12 PAIN trout Allergy Rash/Hives Uncoded 07/17/18 15:12
[2018-07-18 10:21] VITALS: RESP 16; TEMP 97.6
[2018-07-18] MEDS ORDERED: LIDOCAINE 1% 20 ML VIAL (10MG/ML) FOR IV START INTRADERMA ONE (10:22)
[2018-07-18] MEDS ORDERED: LIDOCAINE 1% INJ 10MG/ML (20 ML MDV) ONE (10:34)
[2018-07-18] MEDS ORDERED: GLYCOPYRROLATE 0.2 MG/ML 2 ML VIAL ONE (10:34)
[2018-07-18] MEDS ORDERED: PROPOFOL 10 MG/ML 20 ML VIAL IV ONE (10:34)
--- NOTE | 2018-07-18 11:24 | P.PCN ---
Date of Procedure: 07/18/18 Operative Findings: Gastritis within stomach especially between 39-43 cm from incisors Description of Procedure: PREOPERATIVE DIAGNOSIS: Status post sleeve gastrectomy. Gastroesophageal reflux disease. Epigastric abdominal pain. POSTOPERATIVE DIAGNOSIS: Status post sleeve gastrectomy. Gastroesophageal reflux disease. Epigastric abdominal pain. Erosive esophagitis, chronic. Diaphragmatic hiatal hernia without obstruction. Chronic superficial gastritis. OPERATION: Esophagogastroduodenoscopy with cold forceps biopsies along the antrum. SURGEON: Madiha Douglass MD ANESTHESIA: MAC. INDICATIONS: The patient is a 73-year-old female who presents with a history of sleeve gas trectomy with abdominal pain. She is over 5 years out from her bariatric procedure. Benefits and risks of the procedure were described. Informed consent was obtained. DESCRIPTION: The patient was brought into the endoscopy suite and laid in the left lateral decubitus position. An Olympus gastroscope was passed along the posterior oropharynx down to the distal esophagus where the squamocolumnar junction was at 37 centimeters from the incisors remarkable for chronic erosive esophagitis, LA grade A without ulceration. The stomach was entered where she had a 6-cm hiatal hernia with a diaphragmatic hiatus found at 43 cm. The sleeve reservoir moderately large allowing easy retroflexion of the scope to view the lower esophageal valve. Chronic gastritis albeit mild was found along the antrum with cold biopsies obtained. The first through third portion of the duodenum was examined and unremarkable. The scope again had easily retroflexed along the antrum. The stomach was desufflated. The patient tolerated the procedure well. FINDINGS: No acute ulceration found along her sleeve. No corkscrewing sleeve gastrectomy. Squamocolumnar junction at 37 cm from the incisors. Diaphragmatic hiatus at 43 cm. Moderate large gastric reservoir with prior history of sleeve gastrectomy allowing easy retroflexion of the gastroscope to view the lower esophageal valve. Hiatal hernia 6 cm, fixed. LA grade A erosive esophagitis. No active duodenitis. Chronic gastritis. RECOMMENDATIONS: Upper endoscopy as needed. May benefit from antireflux operation. Continue with current therapy.
--- NOTE | 2018-07-18 11:24 | P.PCN ---
Date of Procedure: 07/18/18 Operative Findings: History of colon polyps. Colon is removed at 45, 35, 15 cm from the anal verge with cold biopsy forceps Description of Procedure: PREOPERATIVE DIAGNOSIS: Colonoscopy screening, first POSTOPERATIVE DIAGNOSIS: Colonoscopy screening, first Personal history of colon polyps. Multiple tubular adenomas throughout the colon. External hemorrhoids, grade 3. OPERATION: Colonoscopy to the ileocecal valve and appendiceal orifice. Colonoscopy with multiple hot snare polypectomies Colonoscopy with multiple cold forceps biopsies. SURGEON: Madiha Douglass MD. ANESTHESIA: MAC. INDICATIONS: The patient is a 73-year-old female who presents for colonoscopy screening. Benefits and risks were described and informed consent was obtained. DESCRIPTION OF PROCEDURE: The patient had undergone Gatorade, MiraLAX and Dulcolax prep. He had been brought into the operating room and laid in the left lateral decubitus position. After adequate intravenous sedation, the rectum was examined with 2% lidocaine jelly. External hemorrhoids were encountered. The rectal tone was within normal limits. No lesions were palpated in the rectal vault. An Olympus colonoscope was advanced until the ileocecal valve and appendiceal orifice were clearly viewed. The prep was fair with visualization of the mucosal folds. The scope was removed with visualization of each mucosal fold. No scattered diverticulosis was encountered. Multiple colonic polyps were found and cold forcep biopsy or snare polypectomy. No evidence of focal colitis was found. Retroflexion of the scope demonstrated grade 1 internal hemorrhoids without active bleeding or inflammation. The colon was desufflated. The patient had tolerated the procedure well. Withdrawal time was over 6 minutes. FINDINGS: Aronchick preparation quality scale (1-5) Internal hemorrhoids, grade 1 External hemorrhoids, grade 2. No arteriovenous malformations. Removal of 11 polyps from the proximal, mid transverse colon and descending colon: - Snare polypectomy 20 cm from the anal verge, 5 mm tubulovillous adenoma polyp. - Snare polypectomy 39 cm from the anal verge, 8 mm flat villous adenoma polyp. - Snare polypectomy 50 cm from the anal verge, 12 mm flat villous adenoma polyp. - Cold forceps biopsy at 30 cm from the anal verge, 4 mm polyp. - Cold forceps biopsy at 40 cm from the anal verge, 5 mm polyp. - Cold forceps biopsy at 45 cm from the anal verge, 4 mm polyp. - Cold forceps biopsy at 55 cm from the anal verge, 3 mm polyp. - Cold forceps biopsy at 60 cm from the anal verge, 4 mm polyp. - Cold forceps biopsy at 65 cm from the anal verge, 3 mm polyp. - Cold forceps biopsy at 75 cm from the anal verge, 4 mm polyp. - Cold forceps biopsy at mid transverse colon, 5 mm polyp. - Cold forceps biopsy at proximal transverse colon, 4 mm polyp. No focal colitis. RECOMMENDATIONS: Given severity of tubular adenomas, recommend repeat colonoscopy 1 year. Plan - Discharge Summary Discharge Rx Participant: Yes New Discharge Prescriptions: No Action Cetirizine HCl [Zyrtec] 10 mg PO DAILY Quinapril HCl [Accupril] 20 mg PO DAILY Etodolac [Lodine] 400 mg PO BID lamoTRIgine [LaMICtal] 25 mg PO BID traZODone HCL 50 mg PO HS PRN PRN Reason: Insomnia Albuterol Inhaler [Ventolin Hfa Inhaler] 2 puff INHALATION RT-Q6H PRN PRN Reason: Shortness Of Breath Metoprolol Succinate (ER) [Toprol XL] 25 mg PO DAILY amLODIPine [Norvasc] 10 mg PO DAILY Calcium Carbonate [Calcium] 600 mg PO DAILY Pantoprazole [Protonix] 40 mg PO AC-BRKFST #30 tablet. Escitalopram [Lexapro] 5 mg PO DAILY Discharge Medication List Cetirizine HCl [Zyrtec] 10 mg PO DAILY 07/29/13 [History] Quinapril HCl [Accupril] 20 mg PO DAILY 12/25/14 [History] Etodolac [Lodine] 400 mg PO BID 06/01/16 [History] lamoTRIgine [LaMICtal] 25 mg PO BID 10/03/17 [History] Albuterol Inhaler [Ventolin Hfa Inhaler] 2 puff INHALATION RT-Q6H PRN 03/10/18 [History] traZODone HCL 50 mg PO HS PRN 03/10/18 [History] Calcium Carbonate [Calcium] 600 mg PO DAILY 07/03/18 [History] Metoprolol Succinate (ER) [Toprol XL] 25 mg PO DAILY 07/03/18 [History] amLODIPine [Norvasc] 10 mg PO DAILY 07/03/18 [History] Pantoprazole [Protonix] 40 mg PO AC-BRKFST #30 tablet. 07/04/18 [Rx] Escitalopram [Lexapro] 5 mg PO DAILY 07/17/18 [History] Follow up Appointment(s)/Referral(s): Madiha Douglass MD [STAFF PHYSICIAN] - 07/23/18 Patient Instructions/Handouts: Colorectal Polyps (DC) Activity/Diet/Wound Care/Special Instructions: Repeat colonoscopy 5 years, 2023 Discharge Disposition: HOME SELF-CARE
[2018-07-18 11:53] VITALS: BP 124/80; PULSE 88
== END 2018-07-18 13:13 | disposition home or self-care (01) ==
LOC: ORWHC2ENDO 07:25
PROVIDERS: ATTEND Surgery Plastic and Reconstructive Surgery
DX: Z86.010 Personal history of colon polyps (principal); K64.0 First degree hemorrhoids; K64.1 Second degree hemorrhoids; K21.9 Gastro-esophageal reflux disease without esophagitis; Z98.84 Bariatric surgery status; J45.909 Unspecified asthma, uncomplicated; I25.10 Atherosclerotic heart disease of native coronary artery without angina pectoris; I10 Essential (primary) hypertension; I25.2 Old myocardial infarction; Z87.01 Personal history of pneumonia (recurrent); G47.00 Insomnia, unspecified; F32.9 Major depressive disorder, single episode, unspecified; Z90.49 Acquired absence of other specified parts of digestive tract; G43.909 Migraine, unspecified, not intractable, without status migrainosus; Z87.891 Personal history of nicotine dependence; Z82.49 Family history of ischemic heart disease and other diseases of the circulatory system; Z79.899 Other long term (current) drug therapy; Z88.1 Allergy status to other antibiotic agents; Z88.7 Allergy status to serum and vaccine; Z91.018 Allergy to other foods; Z91.048 Other nonmedicinal substance allergy status
CPT/HCPCS: 88305; 88342; 45380; 43239; J2001; J2704

== ENCOUNTER → 2019-10-16 | Outpatient (CLI) | payer MEDICARE ==
--- NOTE | 2019-10-17 10:19 | MM ---
Reason for exam: clinical finding. Last mammogram was performed 4 years and 2 months ago. History: Patient had first child at age 32. Benign right US cyst aspiration of the right breast, August 19, 2009. Benign right breast US guided needle local of the right breast, August 19, 2009. Benign excisional biopsy of the left breast. Physical Findings: Nurse did not find any significant physical abnormalities on exam. MG 3D Diag Mammo W/Cad LASHAE Bilateral CC and MLO view(s) were taken. Prior study comparison: August 30, 2015, mammogram. There are scattered fibroglandular densities. Finding: There are intermediate concern, suspicious calcifications in the left breast 12-13cm from the nipple. These results were verbally communicated with the patient and result sheet given to the patient on 10/16/19. ASSESSMENT: Suspicious, BI-RAD 4 RECOMMENDATION: Stereotactic core biopsy of the left breast. Called Dr. Alejandro's office with mammographic findings and has scheduled an appointment for the patient for 11/20/19 at 9:[address] Bal. Biopsy scheduled for 11/07/19 at 8:00. PRELIMINARY REPORT CALLED AND FAXED TO DR. BAL ON 10/16/19.
== END | disposition home or self-care (01) ==
LOC: RADMAMWWP 09:00
PROVIDERS: ATTEND Internal Medicine
DX: N63.0 Unspecified lump in unspecified breast (principal)
CPT/HCPCS: 77066; G0279; 77062

== ENCOUNTER → 2019-10-17 | Outpatient (CLI) | payer MEDICARE ==
--- NOTE | 2019-10-17 15:45 | XR ---
EXAMINATION TYPE: XR Hip Complete RT DATE OF EXAM: 10/17/2019 CLINICAL HISTORY: pain TECHNIQUE: AP and frogleg views of the right hip are obtained. COMPARISON: None. FINDINGS: There is no acute fracture/dislocation evident. Severe degenerative joint space narrowing noted. Subchondral sclerosis and cyst formation. Marginal spurring about the acetabulum. The overlyin g soft tissue appears unremarkable. IMPRESSION: 1. There is no acute fracture or dislocation. ICD 10 NO FRACTURE, INITIAL EVALUATION
== END | disposition home or self-care (01) ==
LOC: RAD 15:18
PROVIDERS: ATTEND Internal Medicine
DX: M25.551 Pain in right hip (principal)
CPT/HCPCS: 73502

== ENCOUNTER → 2019-10-24 | Outpatient (CLI) | payer MEDICARE ==
[2019-10-24 09:59] VITALS: BP 139/80; PULSE 65; RESP 18; TEMP 97.9
--- NOTE | 2019-10-24 10:20 | P.GSHP ---
History of Present Illness H&P Date: 10/24/19 Chief Complaint: abnormal left breast mammogram Dean is a 74 year old female seen in consultation for Dr. Alejandro regarding an abnormal mammogram on 10-16-19 of the left breast, nothing of concern noted in the right breast. There were microcalcifications noted in the left breast 12-13 cm from the nipple. The patient states that she had an episode of a fever and swelling under her left arm in approximately May 2019. The pain and swelling subsided within 24 hours. At this time she has no complaints of lumps masses nodules in either breast or under either arm. She is not complaining of any pain in her breast. She is not complaining of any nipple discharge or skin changes. She has never had anything like this in the past. She did have a right breast biopsy in the remote past which was not cancer. Nicotine: Negative Caffeine: One cup per day Theophylline: negative Family History: maternal grandmother: bone cancer maternal great uncle: prostate cancer paternal great uncle: breast cancer Hormonal history: Menarche: 11 , 5 miscarriages, first live at 35, breast feed: yes menopause: Partial hysterectomy in 40's, for fibroids BCP: 8 years hormones: none Past surgical history: 1. Partial hysterectomy 2. 3. bilateral total knee 4. back surgery 5. tonsil and adenoids 6 . Cholecystectomy 7. bariatric surgery/sleeve Medical history: HTN asthma arthritis Social history: Nicotine: Negative Alcohol: Once a week/ wine or liquor Drugs: edible marijuana for depression - Constitutional Constitutional: Denies chills, Denies fever - EENT Eyes: denies blurred vision, denies pain Ears: deny: decreased hearing, tinnitus Ears, nose, mouth and throat: Denies headache, Denies sore throat - Breasts Breasts: bilateral: as per HPI - Cardiovascular Cardiovascular: Reports high blood pressure - Respiratory Respiratory: Denies cough, Denies 7 - Gastrointestinal Gastrointestinal: Denies abdominal pain, Denies diarrhea, Denies nausea, Denies vomiting - Genitourinary (Female) Genitourinary: Denies dysuria, Denies hematuria - Menstruation Menstruation: Reports post hysterectomy, Reports postmenopausal - Musculoskeletal Comment: arthritis - Integumentary Integumentary: Denies pruritus, Denies rash - Neurological Neurological: Denies numbness, Denies weakness - Psychiatric Psychiatric: Reports anxiety, Reports depression - Endocrine Endocrine: Denies fatigue, Denies weight change - Hematologic/Lymphatic Comment: none - Allergic/Immunologic Allergic/Immunologic: Reports as per HPI Past Medical History Past Medical History: Asthma, GERD/Reflux, Hypertension, Pneumonia Additional Past Medical History / Comment(s): Hayfever, seasonal allergies, chronic back pain, past MADALYN but not since wt loss, internal hemorrhoids, anemia, migraines when she had menses. Pt is Jehovah Witness-No blood., History of Any Multi-Drug Resistant Organisms: None Reported Past Surgical History: Adenoidectomy, Appendectomy, Back Surgery, Bariatric Surgery, Section, Cholecystectomy, Hysterectomy, Orthopedic Surgery, Tonsillectomy Additional Past Surgical History / Comment(s): Knee Replacements R & L, GASTRIC Sleeve, EGDs, colonoscopy, L breast benign bx, x 1. Past Anesthesia/Blood Transfusion Reactions: Previous Problems w/ Anesthesia Additional Past Anesthesia/Blood Transfusion Reaction / Comment(s): "felt like an elephant was sitting on my chest. It happened twice." Past Psychological History: Anxiety, Depression Additional Psychological History / Comment(s): Pt states she lives with her mother and her son and patrizia-in-law. She has hx of depression and states she recently ran out of one of her antidepressants and during that time had increased depression but no thoughts of suicide or plans of suicide. Pt states at the age of 14 yrs she attempted suicide with overdose. No other attempts. Pt is independent. Smoking Status: Former smoker Past Alcohol Use History: Occasional Additional Past Alcohol Use History / Comment(s): Pt states she started smoking in 1964 and quit in 1979. She states she drinks more alcohol if her depression increases but not more than 7 drinks a week at this time. Past Drug Use History: Marijuana Additional Drug Use History / Comment(s): Pt states she occasionally uses marijuana oils. - Past Family History Father Family Medical History: Coronary Artery Disease (CAD) Additional Family Medical History / Comment(s): Father is . He had ASHD. Mother Family Medical History: No Reported History Additional Family Medical History / Comment(s): Mother is living and healthy. Medications and Allergies Home Medications Medication Instructions Recorded Confirmed Type Cetirizine HCl [Zyrtec] 10 mg PO DAILY 07/29/13 10/20/19 History Quinapril HCl [Accupril] 20 mg PO DAILY 12/25/14 10/20/19 History Etodolac [Lodine] 400 mg PO BID 06/01/16 10/20/19 History Albuterol Inhaler (Mhu) [Ventolin 2 puff INHALATION RT-Q6H PRN 03/10/18 10/20/19 History Hfa Inhaler (Mhu)] traZODone HCL 50 mg PO HS PRN 03/10/18 10/20/19 History amLODIPine [Norvasc] 10 mg PO DAILY 07/03/18 10/20/19 History Escitalopram [Lexapro] 5 mg PO DAILY 07/17/18 10/20/19 History Baclofen [Lioresal] 1 cap PO DIRECTED 10/20/19 10/20/19 History traMADol HCL [Ultram] 50 mg PO Q4HR PRN 10/20/19 10/20/19 History Allergies Allergy/AdvReac Type Severity Reaction Status Date / Time Tetanus Vaccines and Toxoid Allergy Mild Swelling Verified 10/20/19 14:29 tetracycline AdvReac Nausea,ABDOMINAL Verified 10/20/19 14:29 PAIN trout Allergy Mild Rash/Hives Uncoded 10/20/19 14:29 Surgical - Exam BMI 31.1 - General well developed, well nourished, no distress - Eyes normal ocular movement - ENT no hearing loss, no congestion - Neck no masses, trachea midline - Respiratory normal respiratory effort, clear to auscultation - Cardiovascular Rhythm: regular Heart Sounds: normal: S1, S2 - Abdomen Abdomen: soft, non tender, no guarding, no rigid, no rebound - Integumentary normal turgor - Neurologic no disoriented, no combative - Musculoskeletal uses a cane - Psychiatric oriented to time, oriented to person, oriented to place, speech is normal, memory intact breast exam: BRA: 44 DDD inspection: bilateral grade 3 ptosis palpation: right breast: Multiple positional exam no dominant masses or nodules of concern, fibrocystic changes Right axilla: No adenopathy of concern Left breast: Multi-positional exam no dominant masses or nodules of concern Left axilla: No adenopathy of concern Results Mammogram results reviewed/microcalcifications of concern in the left breast 12- 13 cm from the nipple Assessment and Plan Assessment: Impression: HTN asthma arthritis Mammographic abnormality left breast Fibrocystic breast changes, Depression/anxiety Hip pain resulting in difficulty with ambulation using a cane Plan: 1. Stereotactic core biopsy left breast 2. Medical management of medical conditions Risks and benefits of procedure discussed with the patient. These include but are not limited to bleeding, infection, reaction to the anesthetic. Additionally if the patient were to be found discordant on biopsy possible open biopsy would be recommended. The fact that the clip of the left is also discussed with the patient. She understands the risks and benefits and wishes to proceed. Cc: Dr. Alejandro encounter 45 minutes, > 50% of tme in planing and counselling Time with Patient: Greater than 30
== END | disposition home or self-care (01) ==
LOC: WWCWWP 09:37
PROVIDERS: ATTEND Surgery
DX: Z53.9 Procedure and treatment not carried out, unspecified reason (principal)

== ENCOUNTER → 2019-11-07 | Day surgery (SDC) | payer MEDICARE ==
[2019-11-07 07:36] VITALS: BP 112/76; PULSE 85; RESP 18; TEMP 99.5
== END ==
LOC: RADMAMWWP 07:10
PROVIDERS: ATTEND Surgery
DX: Z53.8 Procedure and treatment not carried out for other reasons (principal)

== ENCOUNTER → 2019-11-21 | Day surgery (SDC) | payer MEDICARE ==
[2019-11-21 07:51] VITALS: BP 108/73; PULSE 88; RESP 18; TEMP 98.8
--- NOTE | 2019-11-21 18:09 | MM ---
EXAMINATION TYPE: MG discontinued stereo core LT DATE OF EXAM: 11/21/2019 COMPARISON: 10/16/2019 CLINICAL HISTORY: 74-year-old female referred for stereotactic core needle biopsy of left breast micr ocalcifications. TECHNIQUE: Stereotactic guided core biopsy of the left breast. FINDINGS: The procedure of stereotactic guided core biopsy was explained to the patient. Benefits, a lternatives, and risks were discussed. An informed consent was then obtained. Given the central location of the faint microcalcifications, the projection which showed these to the best advantage was used for targeting approach. Lateral to medial approach was utilized. Multiple at tempts at positioning the breast to bring the faint group of calcifications intravenously a two-view were made. One LM target window seem to show the faint microcalcifications but they resemble vascular calcifications. CC from above attempt was made and the calcifications could not be reproduced in the target window. As these may represent faint vascular calcifications, decision was made to cancel the exam and perform a 6 month follow-up. Findings and impression are discussed with the patient and Dr. Franki Parekh. IMPRESSION: Canceled stereotactic core needle biopsy of the left breast, faint centrally located microcalcificati ons. The calcifications were identified on a LM target window but have the appearance of vascular yair cifications. A CC attempt was subsequently made but the calcifications could not be reproduced in the target window. These may represent faint early vascular calcifications. Overall BI-RADS assessment 3, probably benign RECOMMENDATION: 1. Six-month follow-up diagnostic left breast mammogram. 2. The patient should continue monthly self breast exam. 3. This exam should not preclude additional follow-up of suspicious palpable abnormalities.
== END ==
LOC: RADMAMWWP 07:08
PROVIDERS: ATTEND Surgery
DX: R92.8 Other abnormal and inconclusive findings on diagnostic imaging of breast (principal); Z53.8 Procedure and treatment not carried out for other reasons

== ENCOUNTER → 2020-01-22 | Outpatient (CLI) | payer MEDICARE ==
[2020-01-22 17:04] LABS: Appearance,Urine Clear (Clear); Basophils # (A) 0.1 k/uL (0-0.2); Basophils % (A) 1 %; Bilirubin,Urine 2+ (Negative); Blood,Urine Negative (Negative); Color,Urine Yellow; Eosinophils # (A) 0.4 k/uL (0-0.7); Eosinophils % (A) 6 %; Glucose,Urine (UA) Negative (Negative); HCT 42.7 % (34.0-46.0); HGB 13.7 gm/dL (11.4-16.0); Hyaline Casts,Urine 1 /lpf (0-2); Ketones,Urine Negative (Negative); Leukocyte Esterase,Urine Large (Negative); Lymphocytes # (A) 1.4 k/uL (1.0-4.8); Lymphocytes % (A) 24 %; MCH 31.9 pg (25.0-35.0); MCHC 32.1 g/dL (31.0-37.0); MCV 99.2 fL (80.0-100.0); Mean Platelet Volume 7.4; Monocytes # (A) 0.3 k/uL (0-1.0); Monocytes % (A) 5 %; Mucus,Urine Occasional /hpf; Neutrophils # (A) 3.7 k/uL (1.3-7.7); Neutrophils % (A) 63 %; Nitrite,Urine Negative (Negative); PH, Urine 5.5 (5.0-8.0); Platelet Count 273 k/uL (150-450); Protein,Urine Negative (Negative); RBC,Urine 3 /hpf (0-5); RDW 13.3 % (11.5-15.5); Specific Gravity,Urine 1.021 (1.001-1.035); Squamous Epithelial Cell,Urine 3 /hpf (0-4); WBC 5.8 k/uL (3.8-10.6); WBC,Urine 3 /hpf (0-5)
[2020-01-22 17:10] LABS: Partial Thromboplastin Time 24.3 sec (22.0-30.0); Prothrombin Time 10.3 sec (9.0-12.0)
[2020-01-22 17:18] LABS: African American GFR (CKD) >90 (>60 ml/min/1.73 sqM); Anion Gap 7 mmol/L; Blood Urea Nitrogen 14 mg/dL (7-17); Calcium 9.4 mg/dL (8.4-10.2); Carbon Dioxide 26 mmol/L (22-30); Chloride 105 mmol/L (98-107); Glucose 118 mg/dL (74-99); Non-African American GFR(CKD) 86 (>60 ml/min/1.73 sqM); Potassium 3.6 mmol/L (3.5-5.1); Sodium 138 mmol/L (137-145)
== END | disposition home or self-care (01) ==
LOC: LABPAT 16:35
PROVIDERS: ATTEND Internal Medicine
DX: Z01.818 Encounter for other preprocedural examination (principal); M16.11 Unilateral primary osteoarthritis, right hip
CPT/HCPCS: 36415; 80048; 81001; 85025; 85610; 85730

== ENCOUNTER → 2020-01-23 | Outpatient (CLI) | payer MEDICARE | END | disposition home or self-care (01) | LOC: LABPAT 13:53 | PROVIDERS: ATTEND Orthopaedic Surgery | DX: Z01.812 Encounter for preprocedural laboratory examination (principal) | CPT/HCPCS: 87070 ==

== ENCOUNTER 2020-02-03 09:01 | Inpatient (IN) | payer MEDICARE ==
[2020-02-02 08:43] VITALS: BMI 31.1
--- NOTE | 2020-02-02 10:02 | HP ---
HISTORY AND PHYSICAL CHIEF COMPLAINT: Right hip pain. HISTORY OF PRESENT ILLNESS: The patient is a 74-year-old female who presents with progressive right hip pain for the past several years. It has worsened over the past 7 months. She notes thigh and groin pain with weightbearing activities. She notes this significantly limits her. She has been limping. She is using a cane. She has tried anti-inflammatory medications without much relief. PAST MEDICAL HISTORY: Significant for hypertension, asthma, and depression. PAST SURGICAL HISTORY: Significant for previous lumbar fusion. CURRENT MEDICATIONS: Amlodipine, Lamictal, Lexapro, quinapril, Tylenol, Etodolac. She has allergies to TETANUS TOXOID. FAMILY HISTORY: Significant for heart disease and cancer. SOCIAL HISTORY: Significant for previous tobacco use. 16 POINT REVIEW OF SYSTEMS: Otherwise reviewed and is noncontributory. PHYSICAL EXAMINATION: The patient is approximately 5 foot 6, 189 pounds of mesomorphic habitus. HEENT: Exam is nonfocal. NECK: Supple. Passive motion right hip, flexion 75 degrees, external rotation of the hip flexed 60 degrees, internal rotation -10 degrees with pain. Clinically, she has 1 cm shortening of the right lower extremity compared to the left. She has limited lumbar spine motion. Her distal neurovascular appears intact in the right lower extremity. AP and lateral views of the right hip obtained in the office show severe osteoarthrosis with [id number] changes. The subchondral sclerosis with cystic changes noted as well. IMPRESSION: 1. Right hip severe osteoarthrosis. 2. History of lumbar fusion. RECOMMENDATIONS: I talked to the patient at length regarding her condition along with treatment options. At this point, she is quite limited and symptomatic because of pain related to her osteoarthrosis despite previous conservative measures. After thorough discussion, she opts to proceed with surgery. We will plan to proceed with right total hip arthroplasty utilizing a lateral approach. We will institute DVT prophylaxis postoperatively. MMODL / IJN: [id number] /
[~2020-02-03 09:01] MED LIST changes: +ACETAMINOPHEN TAB 500 MG TAB PO ONE; -LACTATED RINGERS 1,000 ML IV SCH; -LIDOCAINE 1% 20 ML VIAL (10MG/ML) FOR IV START INTRADERMA PRN; +MELOXICAM 7.5 MG TAB PO ONE; +ONDANSETRON 4 MG/2 ML VIAL IVP ONE; +TRANEXAMIC ACID 1,000 MG in SODIUM CHLORIDE 0.9% 100 ML IVPB ONE; +fentaNYL (PF) 50 MCG/ML 2 ML AMP IV PRN
[2020-02-03] MEDS ORDERED: DEXAMETHASONE SOD PHOSPHATE 4 MG/ML 1 ML VIAL IVP ONE (09:49)
[2020-02-03] MEDS: LACTATED RINGERS 1,000 ML IV SCH (09:49)
[2020-02-03] MEDS ORDERED: TRANEXAMIC ACID 1,000 MG/10 ML VIAL ONE (10:27)
[2020-02-03] MEDS ORDERED: HYDROmorphone (PF) 1 MG/ML ONE (10:27)
[2020-02-03] MEDS ORDERED: fentaNYL (PF) 50 MCG/ML 2 ML AMP ONE (10:27)
[2020-02-03] MEDS ORDERED: SUCCINYLCHOLINE CHLORIDE 100 MG/5 ML SYR IV ONE (10:27)
[2020-02-03] MEDS ORDERED: PHENYLEPHRINE-0.9% NACL SYG 1 MG/10 ML SYRINGE ONE (10:27)
[2020-02-03] MEDS ORDERED: MIDAZOLAM 2 MG/2 ML VIAL ONE (10:27)
[2020-02-03] MEDS ORDERED: LIDOCAINE 1% INJ 10MG/ML (20 ML MDV) ONE (10:27)
[2020-02-03] MEDS ORDERED: SODIUM CHLORIDE 0.9% 100 ML BAG ONE (10:27)
[2020-02-03] MEDS ORDERED: ONDANSETRON 4 MG/2 ML VIAL ONE (10:27)
[2020-02-03] MEDS ORDERED: PROPOFOL 10 MG/ML 20 ML VIAL IV ONE (10:27)
[2020-02-03] MEDS ORDERED: ceFAZolin 3,000 MG in SODIUM CHLORIDE 0.9% IRRIGATIO 3,000 ML IRRIGATION ONE (11:00)
[2020-02-03] MEDS ORDERED: NALOXONE 0.4 MG/ML 1 ML VIAL IV PRN (12:26)
[2020-02-03] MEDS ORDERED: ONDANSETRON 4 MG/2 ML VIAL IVP PRN (12:26)
[2020-02-03] MEDS ORDERED: ACETAMINOPHEN TAB 325 MG TAB PO PRN (12:26)
[2020-02-03] MEDS ORDERED: traMADol 50 MG TAB PO PRN (12:26)
[2020-02-03] MEDS ORDERED: HYDROcodone/APAP 5-325MG 1 EACH TAB PO PRN (12:26)
--- NOTE | 2020-02-03 12:29 | P.OP ---
Date of Procedure: 02/03/20 Preoperative Diagnosis: Right hip severe osteoarthrosis Postoperative Diagnosis: Same Procedure(s) Performed: Right total hip arthroplastypress-fitlateral approach Implants: Depuy Corail size 10 press-fit standard collared femoral stem, 36 mm +1.5 cobalt chrome femoral head, 52 mm Pelham acetabular shell with neutral polyethylene liner Anesthesia: JANEEN Surgeon: Jimmy Brody Mine Boss #1: Dashawn Dobson Estimated Blood Loss (ml): 250 Pathology: other (Femoral head) Condition: stable Disposition: PACU Indications for Procedure: The patient's a 74-year-old female who presents with progressive right hip pain secondary osteoarthrosis despite conservative measures. A discussion of the risks and benefits of operative intervention versus continued conservative measures was made with patient. She opted proceed with surgery. Operative risks to include infection, neurovascular injury, development of blood clots, possible fracture, possible leg length discrepancy, possible instability and need for subsequent procedures was discussed. Informed consent was obtained. Operative Findings: As below Description of Procedure: The patient was brought to the operating room, and after induction of spinal anesthesia was placed in a lateral decubitus position. The bony prominences were appropriately padded. The pelvis was stable perpendicular to the floor with a pegboard. The right lower extremity was prepped and draped in normal fashion. A 12 cm incision was then made centered over the greater trochanter extending superiorly to level the ASIS and distally in line with the femoral shaft. The skin and subcutaneous tissues were divided sharply. Electrocautery was used for hemostasis. The fascia edward and gluteus cornelia fascia was split in line with the skin incision. The muscle fibers were bluntly dissected proximally. A self-retaining retractor was placed. The anterior and posterior margins of the gluteus medius muscles identified and the anterior two thirds was detached from the greater trochanter with electrocautery. The gluteus minimus tendon was identified and detached in a similar fashion. A wide capsulotomy was performed. The femoral neck fracture was identified in the lower neck cut was made approximately 1 1/2 cm above the level of the lesser trochanter with a sagittal saw at a 45 the shaft. The head was then extracted with a corkscrew. Attention was then paid towards preparing the acetabular. Anterior and posterior retractors were placed. The remaining capsular labral tissues debrided sharply clearly defining the acetabular margins. Began reaming with a 43 mm reamer taking care to initially medialize, then reaming at 45 of abduction and 20 of anteversion. Sequential reaming is performed up to 51 mm. This was down to bleeding bony surface. A trial 52 mm acetabular shell was inserted at 45 of abduction and 20 of anteversion. This was fully seated. There was good rim fit and stability. A neutral polyethylene liner was then impacted. Care taken to avoid any soft tissue interposition. Attention was then paid towards preparing the proximal femur. A box chisel was used to open the metaphyseal region. A canal finder was used to find the femoral canal. Sequential broaching was performed up to a size 10. This is placed in 15 of anteversion with the leg perpendicular floor judging off the trans-epicondylar axis. There is good rotational stability. A calcar mill was used to fashion the medial calcar. A trial standard neck along with a 36 mm + 1.5 trial head was placed. The hip was gently reduced. It was taken through range of motion. I felt to be stable in flexion and extension with internal and external rotation. I felt there was adequate alevism of soft tissue tension. The hip was gently dislocated. The trial components removed. Pulsatile lavage was utilized. The final size 10 standard collared femoral stem was inserted again with the leg perpendicular to the floor in 15 of anteversion. Again there was good rotational stability. A 36 mm + 1.5 cobalt chrome femoral head was gently impacted. The hip was gently reduced. Again it was taken through motion and felt to be stable in flexion and extension with internal and external rotation. Pulsatile lavage was again utilized. With the leg in abduction the gluteus minimus and medius tendons reattached to the greater trochanter with #2 Ethibond suture. There was minimal drainage therefore a deep drain was not placed. The fascia edward and gluteus cornelia fascia was closed with #2 Ethibond suture. The subcutaneous tissues were reapproximated interrupted 2-0 Vicryl sutures. The skin was reapproximated with 3-0 subcuticular strata fix suture. Skin tape and adhesive was applied. A sterile dressing was applied. The patient was awoken from sedation and transferred to recovery room in good condition. Blood loss was estimated 250 mL. No complications were incurred. Sponge and needle counts were correct in the case. Clifton CRUZ assisted during the major composes case to include exposure, implantation, and closure.
[2020-02-03] MEDS: HYDROmorphone 0.5 MG/0.5 ML SYRINGE IVP PRN ×3 (12:33→14:57)
[2020-02-03] MEDS ORDERED: diphenhydrAMINE 50 MG/ML 1 ML VIAL IVP ONE ×2 (12:35→15:45)
--- NOTE | 2020-02-03 13:48 | XR ---
EXAMINATION TYPE: XR Hip Limited RT DATE OF EXAM: 02/03/2020 COMPARISON: Right hip 10/17/2019 HISTORY: Right hip replacement TECHNIQUE: AP right hip FINDINGS: Femoral prosthesis and acetabular components of in place. No acute fractures are evident po st right hip replacement. Soft tissue changes from surgery are evident. IMPRESSION: 1. No acute fractures post right hip replacement
[2020-02-03] MEDS ORDERED: LACTATED RINGERS 1,000 ML IV ONE (14:39)
[2020-02-03] MEDS: SENNOSIDES-DOCUSATE SODIUM 1 EACH TAB PO SCH (20:54)
[2020-02-03] MEDS: HYDROcodone/APAP 7.5-325MG 1 EACH TAB PO PRN (20:54)
[2020-02-04] MEDS: HYDROcodone/APAP 7.5-325MG 1 EACH TAB PO PRN ×3 (05:39→21:24)
[2020-02-04 06:37] LABS: Basophils % (A) 0 %; Eosinophils # (A) 0.1 k/uL (0-0.7); Eosinophils % (A) 1 %; HCT 29.6 % (34.0-46.0); Lymphocytes # (A) 1.1 k/uL (1.0-4.8); Lymphocytes % (A) 19 %; MCH 32.7 pg (25.0-35.0); MCHC 33.3 g/dL (31.0-37.0); MCV 98.1 fL (80.0-100.0); Mean Platelet Volume 7.4; Monocytes # (A) 0.5 k/uL (0-1.0); Monocytes % (A) 9 %; Neutrophils # (A) 3.9 k/uL (1.3-7.7); Neutrophils % (A) 69 %; Platelet Count 226 k/uL (150-450); RBC 3.02 m/uL (3.80-5.40); RDW 13.3 % (11.5-15.5); WBC 5.7 k/uL (3.8-10.6)
[2020-02-04] MEDS: LACTATED RINGERS 1,000 ML IV SCH (07:00)
[2020-02-04 07:19] LABS: HGB 9.9 gm/dL (11.4-16.0)
[2020-02-04] MEDS: HYDROmorphone 0.5 MG/0.5 ML SYRINGE IVP PRN ×2 (08:33→17:24)
[2020-02-04] MEDS: MAGNESIUM HYDROXIDE 2,400 MG/10 ML CUP PO PRN (09:00)
[2020-02-04] MEDS: RIVAROXABAN 10 MG TAB PO SCH (09:00)
[2020-02-04] MEDS ORDERED: ALBUTEROL NEBULIZED 2.5 MG/3 ML INHALATION PRN (10:29)
[2020-02-04] MEDS ORDERED: BACLOFEN 10 MG TAB PO PRN (10:29)
--- NOTE | 2020-02-04 11:22 | P.PN ---
Subjective Progress Note Date: 02/04/20 Principal diagnosis: Status post right total hip arthroplasty Patient evaluated bedside today, she is resting comfortably in her chair. She's ambulating with therapy. She is voiding with no difficulties. She denies any headaches, lightheadedness, chest pain, shortness of breath, nausea vomiting, fever or chills. Objective - Vital Signs Vital signs: Vital Signs Temp 99.9 F H 02/04/20 07:33 Pulse 78 02/04/20 03:12 Resp 12 02/04/20 07:33 BP 127/69 02/04/20 07:33 Pulse Ox 100 02/04/20 07:33 Intake & Output 02/03/20 02/04/20 02/04/20 18:59 06:59 18:59 Intake Total 1651 400 Output Total 650 Balance 1001 400 Weight 82.6 kg Intake: IV 1651 Intake, IV Titration 400 Amount Lactated Ringers 1,000 ml 400 @ 50 mls/hr IV .Q20H BRANDI Rx#:[id number] Output: Urine 400 Estimated Blood Loss 250 Other: Voiding Method Toilet # Voids 2 - Exam Right lower extremity: Incision is clean, dry, and intact. The exofin fusion tape is in good condition. There is minimal soft tissue swelling and ecchymosis surrounding the medial and lateral aspects of the incision. Calf is soft, no tenderness with palpation. Plantar flexion, dorsiflexion, EHL, FHL are intact. Sensory exam to light touch throughout the extremity is intact, dorsal pedis pulses 2+. - Labs CBC & Chem 7: 02/04/20 05:33 Labs: Abnormal Lab Results - Last 24 Hours (Table) 02/04/20 Range/Units 05:33 RBC 3.02 L (3.80-5.40) m/uL Hgb 9.9 L D (11.4-16.0) gm/dL Hct 29.6 L (34.0-46.0) % Assessment and Plan Assessment: Postoperative day 1 status post right total hip arthroplasty Plan: Pain control, continue use of current medication DVT prophylaxis, continue current medication Wound care instructions discussed Encourage incentive spirometer Continue work with physical therapy Medical recommendations Discharge planning: Patient may utilizing subcu rehab at discharge, this decision will be made in the next day or 2. Time with Patient: Less than 30
[2020-02-04] MEDS: lamoTRIgine 25 MG TAB PO SCH ×2 (11:57→21:24)
[2020-02-04] MEDS: ESCITALOPRAM 5 MG TAB PO SCH (11:57)
[2020-02-04] MEDS: lisinopriL 20 MG TAB PO SCH (11:57)
[2020-02-04] MEDS: amLODIPine 10 MG TAB PO SCH (11:57)
[2020-02-04] MEDS: Lubiprostone [Amitiza] 8 MCG PO SCH ×2 (11:58→21:25)
[2020-02-04] MEDS: SENNOSIDES-DOCUSATE SODIUM 1 EACH TAB PO SCH (21:24)
--- NOTE | 2020-02-04 22:02 | P.CONS ---
History of Present Illness - Reason for Consult Consult date: 02/04/20 Medical management Requesting physician: Jimmy Brody - Chief Complaint Right hip surgery - History of Present Illness History of presenting complaint: This is a pleasant 74-year-old patient of Dr. Iglesia Alejandro. Chronic stable medical conditions include asthma, hypertension, osteoarthritis, seasonal ALLERGIES, internal hemorrhoids that bothers her occasionally. Patient is a Christian. Patient is undergoing right total hip arthroplasty. Pain is controlled. No nausea vomiting. Did tolerate some breakfast this morning. No dizziness or lightheadedness. Has been out up in a chair. Review of systems: GEN.: None EYES: None HEENT: None NECK: None RESPIRATORY: None CARDIOVASCULAR: None GASTROINTESTINAL: None GENITOURINARY: None MUSCULOSKELETAL: Joint pains LYMPHATICS: None HEMATOLOGICAL: None PSYCHIATRY: None NEUROLOGICAL: None Past medical history to include: Asthma, hypertension, osteoarthritis, seasonal ALLERGIES, internal hemorrhoids, Pediatric surgery-lost about 60 pounds i.e. gastric sleeve, anxiety depression Social history: Patient is a mother. Patient smoked for 15 years stopped in 1979. She drinks about 7 drinks a week. Occasional does marijuana. Physical examination: VITAL SIGNS: 99.9, 12, 127/69, 100% on 2 L GENERAL: BMI 29.8, sitting up in a chair, awake comfortable. EYES: Pupils equal. Conjunctiva normal. HEENT: External appearance of nose and ears normal, oral cavity grossly normal. NECK: JVD not raised; masses not palpable. HEART: First and second heart sounds are normal; no edema. LUNGS: Respiratory rate normal; clear to auscultation. MUSCULAR skeletal: Dressing over the right hip. Evidence of OA ABDOMEN: Soft, nontender, liver spleen not palpable, no masses palpable. PSYCH: Alert and oriented x3; mood and affect normal. NEUROLOGICAL: Cranial nerves grossly intact; no facial asymmetry, power and sensation grossly intact. LYMPHATICS: No lymph nodes palpable in the axilla and neck INVESTIGATIONS, reviewed in the clinical context: White count 5.7 hemoglobin 9.9 platelets 226 Previous testing: Blood work from 01/22/2020: White count 5.8 hemoglobin 13.7 potassium 3.6 creatinine 0.69 Assessment: -Right total hip arthroplasty -Primary osteoarthritis -Internal hemorrhoids -Acute postprocedure blood loss anemia -Anxiety depression otherwise specified -Patient is a Christian not to be given any blood products Plan: Home medications resumed. Patient is on Xarelto for DVT prophylaxis. Venodyne boots. Care was discussed with the patient question also. Add iron supplementation. Thank you Dr. Brody Past Medical History Past Medical History: Asthma, Hypertension, Osteoarthritis (OA), Pneumonia Additional Past Medical History / Comment(s): Hayfever, seasonal allergies, chronic back pain, past MADALYN but not since wt loss, internal hemorrhoids, anemia, migraines when she had menses. Pt is Jehovah Witness-No blood., History of Any Multi-Drug Resistant Organisms: None Reported Past Surgical History: Adenoidectomy, Appendectomy, Back Surgery, Bariatric Surgery, Section, Cholecystectomy, Hernia Repair, Hysterectomy, Joint Replacement, Orthopedic Surgery, Tonsillectomy Additional Past Surgical History / Comment(s): Knee Replacements R & L, GASTRIC Sleeve, EGDs, colonoscopy, L breast benign bx, x 1. right breast b iopsy, excisional per pt, Past Anesthesia/Blood Transfusion Reactions: Previous Problems w/ Anesthesia, Family History of Problems w/ Anesthesia Additional Past Anesthesia/Blood Transfusion Reaction / Comm: "felt like an elephant was sitting on my chest. It happened twice.". pt is JEhovas Witness, no blood transfusion Past Psychological History: Anxiety, Depression Additional Psychological History / Comment(s): Pt states she lives with her mother and her son and patrizia-in-law. She has hx of depression and states she recently ran out of one of her antidepressants and during that time had increase d depression but no thoughts of suicide or plans of suicide. Pt states at the age of 14 yrs she attempted suicide with overdose. No other attempts. Pt is independent. Smoking Status: Never smoker Past Alcohol Use History: Occasional Additional Past Alcohol Use History / Comment(s): Pt states she started smoking in 1964 and quit in 1979. She states she drinks more alcohol if her depression increases but not more than 7 drinks a week at this time. Past Drug Use History: Marijuana Additional Drug Use History / Comment(s): Pt states she occasionally uses marijuana oils. LAST USED MONTHS AGO. KNOWS NOT TO USE 24 HOURS PRIOR TO PROCEDURE - Past Family History Father Family Medical History: Coronary Artery Disease (CAD) Additional Family Medical History / Comment(s): Father is . He had ASHD. Mother Family Medical History: No Reported History Additional Family Medical History / Comment(s): Mother is living and healthy. Medications and Allergies Home Medications Medication Instructions Recorded Confirmed Type Cetirizine HCl [Zyrtec] 10 - 20 mg PO DAILY 07/29/13 02/03/20 History Quinapril HCl [Accupril] 20 mg PO DAILY 12/25/14 02/03/20 History Etodolac [Lodine] 400 mg PO DAILY 06/01/16 02/03/20 History Albuterol Inhaler (Mhu) [Ventolin 2 puff INHALATION RT-Q6H PRN 03/10/18 02/03/20 History Hfa Inhaler (Mhu)] amLODIPine [Norvasc] 10 mg PO DAILY 07/03/18 02/03/20 History Escitalopram [Lexapro] 5 mg PO DAILY 07/17/18 02/03/20 History Baclofen [Lioresal] 10 mg PO DAILY PRN 10/20/19 02/03/20 History Acetaminophen-Codeine 300-30mg 1 - 2 tab PO Q4-6H PRN 11/07/19 02/03/20 History [Tylenol w/codeine #3] Docusate [Colace] 100 mg PO DAILY 11/21/19 02/03/20 History Lubiprostone [Amitiza] 8 mcg PO BID 11/21/19 02/03/20 History diphenhydrAMINE [Benadryl] 25 mg PO BID PRN 02/02/20 02/03/20 History lamoTRIgine [LaMICtal] 25 mg PO BID 02/02/20 02/03/20 History Allergies Allergy/AdvReac Type Severity Reaction Status Date / Time Tetanus Vaccines and Toxoid Allergy Mild Swelling Verified 02/03/20 09:36 tetracycline AdvReac Nausea,ABDOMINAL Verified 02/03/20 09:36 PAIN trout Allergy Mild Rash/Hives Uncoded 02/03/20 09:36 Physical Exam Vitals: Vital Signs Temp Pulse Pulse Resp BP BP Pulse Ox 02/04/20 07:33 99.9 F H 12 127/69 100 02/04/20 05:00 18 02/04/20 03:12 98.8 F 78 18 99/63 99 02/04/20 00:00 16 02/03/20 19:47 99.1 F 83 18 121/77 100 02/03/20 19:46 17 02/03/20 17:12 98.3 F 91 16 130/81 97 02/03/20 15:45 102 H 14 163/81 100 02/03/20 15:30 90 16 141/79 99 02/03/20 15:01 80 16 141/79 100 02/03/20 14:45 84 16 141/86 100 02/03/20 14:30 79 16 130/77 100 02/03/20 13:45 79 16 148/85 100 02/03/20 13:15 81 16 166/83 100 02/03/20 13:00 90 16 181/91 100 02/03/20 12:45 78 16 174/87 100 02/03/20 12:26 81 18 154/92 100 02/03/20 12:15 78 12 153/74 100 Intake and Output 02/03/20 02/04/20 02/04/20 22:59 06:59 14:59 Intake Total 400 Output Total 400 Balance -400 400 Intake: Intake, IV Titration 400 Amount Lactated Ringers 1,000 ml 400 @ 50 mls/hr IV .Q20H [facility] Rx#:[id number] Output: Urine 400 Other: Voiding Method Toilet Toilet # Voids 1 2 Weight 82.6 kg Results CBC & Chem 7: 02/04/20 05:33 Labs: Abnormal Lab Results - Last 24 Hours (Table) 02/04/20 Range/Units 05:33 RBC 3.02 L (3.80-5.40) m/uL Hgb 9.9 L D (11.4-16.0) gm/dL Hct 29.6 L (34.0-46.0) %
[2020-02-05] MEDS: HYDROmorphone 0.5 MG/0.5 ML SYRINGE IVP PRN (00:47)
[2020-02-05] MEDS: HYDROcodone/APAP 7.5-325MG 1 EACH TAB PO PRN (03:34)
[2020-02-05] MEDS: LACTATED RINGERS 1,000 ML IV SCH (06:33)
[2020-02-05] MEDS ORDERED: FERROUS SULFATE 325 MG TAB PO SCH (07:30)
[2020-02-05 07:42] VITALS: BP 122/72; PULSE 76; RESP 18; TEMP 99.1
[2020-02-05] MEDS: Lubiprostone [Amitiza] 8 MCG PO SCH (08:02)
[2020-02-05] MEDS: lamoTRIgine 25 MG TAB PO SCH (08:07)
[2020-02-05] MEDS: RIVAROXABAN 10 MG TAB PO SCH (08:07)
[2020-02-05] MEDS: amLODIPine 10 MG TAB PO SCH (08:07)
[2020-02-05] MEDS: lisinopriL 20 MG TAB PO SCH (08:07)
[2020-02-05] MEDS: MAGNESIUM HYDROXIDE 2,400 MG/10 ML CUP PO PRN (08:07)
[2020-02-05] MEDS: ESCITALOPRAM 5 MG TAB PO SCH (08:28)
--- NOTE | 2020-02-05 10:12 | P.PN ---
Subjective Progress Note Date: 02/05/20 Principal diagnosis: Status post right total hip arthroplasty Patient evaluated bedside today, she is resting comfortably in her chair. She's ambulating with therapy. She is voiding with no difficulties. She denies any headaches, lightheadedness, chest pain, shortness of breath, nausea vomiting, fever or chills. Objective - Vital Signs Vital signs: Vital Signs Temp 99.1 F 02/05/20 07:00 Pulse 76 02/05/20 07:00 Resp 18 02/05/20 07:00 BP 122/72 02/05/20 07:00 Pulse Ox 97 02/05/20 07:00 Intake & Output 02/04/20 02/05/20 02/05/20 18:59 06:59 18:59 Intake Total 400 Balance 400 Intake: Intake, IV Titration 400 Amount Lactated Ringers 1,000 ml 400 @ 50 mls/hr IV .Q20H [facility] Rx#:[id number] Other: Voiding Method Toilet # Voids 1 1 - Exam Right lower extremity: Incision is clean, dry, and intact. The exofin fusion tape is in good condition. There is minimal soft tissue swelling and ecchymosis surrounding the medial and lateral aspects of the incision. Calf is soft, no tenderness with palpation. Plantar flexion, dorsiflexion, EHL, FHL are intact. Sensory exam to light touch throughout the extremity is intact, dorsal pedis pulses 2+. - Labs CBC & Chem 7: 02/04/20 05:33 Assessment and Plan Assessment: Postoperative day 1 status post right total hip arthroplasty Plan: Pain control, plan for discharge on oral medication DVT prophylaxis, aspirin 81 mg twice a day Wound care instructions discussed Encourage incentive spirometer Continue work with physical therapy Medical recommendations Discharge planning: Patient will be discharged to home today Time with Patient: Less than 30
--- NOTE | 2020-02-05 10:15 | P.DS ---
Providers Date of admission: 02/03/2020 Expected date of discharge: 02/05/20 Attending physician: Jimmy Brody Consults: 02/03/20 12:29 Consult Physician Routine Consulting Provider: Iglesia Alejandro Reason/Comments: Medical Management Do you want consulting provider notified?: Yes Primary care physician: Iglesia Alejandro [facility] Course: Date of admission: 02/03/2020 Date of discharge: 02/05/2020 Admission diagnosis: Status post right total hip arthroplasty Discharge diagnosis: Same Attending physician: Dr. Brody Surgical procedures: Right total hip arthroplasty Brief history: Patient is a 74-year-old female with a history of as a primary right hip osteoarthritis. At this point patient has failed conservative treatment measures and has opted to proceed with a elective right total hip arthroplasty. Hospital course: Details of patient's surgery can be found in operative report. Patient tolerated the procedure well and was subsequently transported to orthopedic floor. Patient's orthopeidc and medical care was provided daily. Patient had daily laboratory tests performed for evaluation of overall blood counts. Patient had daily physical therapy to include strengthening range of motion as well as education with walker ambulation. Patient was treated with Xarelto for their postoperative DVT prophylaxis during their inpatient stay. Patient was noted to have a relatively uneventful postoperative course. Patient reported satisfactory pain control with oral pain medications by postoperative day 0. Patient showed satisfactory progress with physical therapy. Patient moved steadily through the program and had no difficulty meeting the goals by postoperative day 2. Given patient's otherwise satisfactory course and having met physical therapy goals, plan is to discharge patient home on postoperative day 2. Discharge condition/disposition: Patient will be discharged home in stable condition. Discharge medications: Instructions are given on resumption of patient's normal daily medications per primary care recommendation, in addition patient will be prescribed Lindon 7.5 mg/325 mg, Colace 100 mg, aspirin 81 mg. Discharge instructions: 1. Wound care and infection precautions, keep incision dry and covered while showering, no lotions, creams, moisturizers. No soaking, tubs, pools, hottubs. Do not scrub over the incision. 2. Weight-bear as tolerated with walker / cane until follow-up. 3. Ice and elevate when necessary. Do not exceed 20 minutes per hour with ice pack. 4. Utilize compression sleeve until seen at first follow up appointment. 5. Visiting nursing care. 6. Home physical therapy . 7. Pain meds and anticoagulants per prescription. 8. Pain medication has potential to cause constipation. Increase oral fluid and fiber intake. Contact primary care provider if you have not had a bowel movement within 48 hours after discharge 9. No anti-inflammatory medication until discussed at first post operative visit, this including Motrin, Aleve, Mobic, Diclofenac. 10. Follow up in office at 2 weeks postop with Clifton Dobson PA-C 11. Follow up with your primary care doctor 7-10 days after discharge. 12. Contact [facility] with any questions, . Procedures: Right total hip arthroplasty Patient Condition at Discharge: Good Plan - Discharge Summary Discharge Rx Participant: Yes New Discharge Prescriptions: New Aspirin [Adult Low Dose Aspirin EC] 81 mg PO BID #60 tablet. Docusate [Colace] 100 mg PO DAILY #30 capsule HYDROcodone/APAP 7.5-325MG [Lindon 7.5] 1 - 2 each PO Q6HR PRN #42 tab PRN Reason: Pain No Action Cetirizine HCl [Zyrtec] 10 - 20 mg PO DAILY Quinapril HCl [Accupril] 20 mg PO DAILY Etodolac [Lodine] 400 mg PO DAILY Albuterol Inhaler (Mhu) [Ventolin Hfa Inhaler (Mhu)] 2 puff INHALATION RT-Q6H PRN PRN Reason: Shortness Of Breath amLODIPine [Norvasc] 10 mg PO DAILY Escitalopram [Lexapro] 5 mg PO DAILY Baclofen [Lioresal] 10 mg PO DAILY PRN PRN Reason: Moderate To Severe Spasms Acetaminophen-Codeine 300-30mg [Tylenol w/codeine #3] 1 - 2 tab PO Q4-6H PRN PRN Reason: Pain Lubiprostone [Amitiza] 8 mcg PO BID Docusate [Colace] 100 mg PO DAILY lamoTRIgine [LaMICtal] 25 mg PO BID diphenhydrAMINE [Benadryl] 25 mg PO BID PRN PRN Reason: ALLERGIES Discharge Medication List Cetirizine HCl [Zyrtec] 10 - 20 mg PO DAILY 07/29/13 [History] Quinapril HCl [Accupril] 20 mg PO DAILY 12/25/14 [History] Etodolac [Lodine] 400 mg PO DAILY 06/01/16 [History] Albuterol Inhaler (Mhu) [Ventolin Hfa Inhaler (Mhu)] 2 puff INHALATION RT-Q6H PRN 03/10/18 [History] amLODIPine [Norvasc] 10 mg PO DAILY 07/03/18 [History] Escitalopram [Lexapro] 5 mg PO DAILY 07/17/18 [History] Baclofen [Lioresal] 10 mg PO DAILY PRN 10/20/19 [History] Acetaminophen-Codeine 300-30mg [Tylenol w/codeine #3] 1 - 2 tab PO Q4-6H PRN 11/07/19 [History] Docusate [Colace] 100 mg PO DAILY 11/21/19 [History] Lubiprostone [Amitiza] 8 mcg PO BID 11/21/19 [History] diphenhydrAMINE [Benadryl] 25 mg PO BID PRN 02/02/20 [History] lamoTRIgine [LaMICtal] 25 mg PO BID 02/02/20 [History] Aspirin [Adult Low Dose Aspirin EC] 81 mg PO BID #60 tablet. 02/05/20 [Rx] Docusate [Colace] 100 mg PO DAILY #30 capsule 02/05/20 [Rx] HYDROcodone/APAP 7.5-325MG [Lindon 7.5] 1 - 2 each PO Q6HR PRN #42 tab 02/05/20 [Rx] Follow up Appointment(s)/Referral(s): [facility] [NON-STAFF] - As Needed (walker) [facility], [NON-STAFF] - As Needed Dashawn Dobson PAC [PHYSICIAN [employer]AR[employer] LABORER] - 02/20/20 1:30 pm Iglesia Alejandro MD [Primary Care Provider] - 02/11/20 11:30 am [employer] [NON-STAFF] - As Needed (Please call to see if they have a toilet riser and/or a walker to borrow. ) Patient Instructions/Handouts: Total Hip Replacement (DC) Activity/Diet/Wound Care/Special Instructions: Orthopedic Discharge Instructions: 1. Wound care and infection precautions, keep incision dry and covered while showering, no lotions, creams, moisturizers. No soaking, pools, hot tubs. Do not scrub over incision. 2. Weight-bear as tolerated with walker / cane until follow-up. 3. Ice and elevate when necessary. Do not exceed 20 minutes per hour with ice pack. 4. Utilize compression sleeve until seen at first follow up appointment. 5. Pain meds and anticoagulants per prescription. 6. Pain medication has potential to cause constipation. Increase oral fluid and fiber intake. Contact primary care provider if you have not had a bowel movement within 48 hours after discharge. 7. No anti-inflammatory medication until discussed at first post operative visit, this including Motrin, Aleve, Mobic, Diclofenac. 8. Follow up in office at 2 weeks postop with Clifton Dobson PA-C 9. Follow up with your primary care doctor 7-10 days after discharge. 10. Contact [facility] with any questions, . Discharge Disposition: HOME WITH HOME HEALTH SERVICES
[2020-02-05 11:35] LABS: Appearance,Urine Cloudy (Clear); Bacteria,Urine Rare /hpf; Bilirubin,Urine Negative (Negative); Blood,Urine Negative (Negative); Color,Urine Yellow; Glucose,Urine (UA) Negative (Negative); Hyaline Casts,Urine 1 /lpf (0-2); Ketones,Urine Negative (Negative); Leukocyte Esterase,Urine Large (Negative); Mucus,Urine Occasional /hpf; Nitrite,Urine Negative (Negative); PH, Urine 6.5 (5.0-8.0); Protein,Urine Trace (Negative); RBC,Urine 4 /hpf (0-5); Specific Gravity,Urine 1.022 (1.001-1.035); Squamous Epithelial Cell,Urine 15 /hpf (0-4); WBC,Urine 28 /hpf (0-5)
[2020-02-05] MEDS ORDERED: CEPHALEXIN 500 MG CAP PO STA (13:39)
--- NOTE | 2020-02-05 14:54 | CDI ---
Documentation Clarification Form Date: 02/05/2020 02:43:09 PM From: Kandy Merchant CCS, CCDS Admit Date: 02/04/2020 12:26:00 PM Patient Name: Dean Lopes Visit Number: [id number] Discharge Date: ATTENTION: The Clinical Documentation Specialists (CDI) and [facility] Coding Staff appreciate your assistance in clarifying documentation. Please respond to the clarification below the line at the bottom and electronically sign. The CDI & [facility] Coding staff will review the response and follow-up if needed. Please note: Queries are made part of the Legal Health Record. If you have any questions, please contact the author of this message via ITS. Dr. Orestes Patton: Per the 02/03 Medical Management Consult: Acute Postprocedure Blood Loss Anemia is documented without further specificity. History/Risk Factors: Primary osteoarthritis, Internal hemorrhoids, Anxiety, Depression. Patient is a Jehovah Witness. Clinical indicators: Patient presented 02/02 for elective Right Total Hip Arthroplasty for Primary OA of the Right Hip. Hemoglobin 02/03: 9.9* (no historical or previous lab to report) Hematocrit 02/03: 29.6* (no historical or previous lab to report) Treatment: Routine postop orthopedic care status post Hip Arthroplasty. IV Cefazolin, IV Dilaudid, IV Zofran, IV Decadron, PO Tylenol, po Imperial, IV Lactated Ringers In order to accurately reflect this patients severity of illness, please clarify if the Acute Blood Loss Anemia: Has been ruled out Is a complication of surgical procedure Is an expected outcome of the surgical procedure Is related to co-morbid condition(s) of Other please specify Unable to determine (Last Revision: April 2019) Acute postprocedure blood loss anemia-as expected outcome of surgical procedure MTDD
--- NOTE | 2020-02-08 23:37 | P.PN ---
Progress Note - Text Progress Note Date: 02/05/20 - Chief Complaint Right hip surgery History of presenting complaint: This is a pleasant 74-year-old patient of Dr. Iglesia Alejandro. Chronic stable medical conditions include asthma, hypertension, osteoarthritis, seasonal ALLERGIES, internal hemorrhoids that bothers her occasionally. Patient is a Yazidi. Patient is undergoing right total hip arthroplasty. Today-sitting up. Comfortable. Good oral intake. Pain control. Up with the therapy. Given a short course of Keflex for UTI Review of systems: Was done for constitutional, cardiovascular, GI, pulmonary. relevant finding as above Current medications reviewed in today's electronic records Physical examination: VITAL SIGNS: 99.1, 76, 18, 122.72, 97% room air GENERAL: BMI 29.8, sitting up in a chair, comfortable. EYES: Pupils equal. Conjunctiva normal. HEENT: External appearance of nose and ears normal, oral cavity grossly normal. NECK: JVD not raised; masses not palpable. HEART: First and second heart sounds are normal; no edema. LUNGS: Respiratory rate normal; clear to auscultation. MUSCULAR skeletal: Dressing over the right hip. Evidence of OA ABDOMEN: Soft, nontender, liver spleen not palpable, no masses palpable. PSYCH: Alert and oriented x3; mood and affect normal. INVESTIGATIONS, reviewed in the clinical context: White count 5.7 hemoglobin 9.9 platelets 226 UA positive Previous testing: Blood work from 01/22/2020: White count 5.8 hemoglobin 13.7 potassium 3.6 creatinine 0.69 Assessment: -Right total hip arthroplasty -Primary osteoarthritis -Internal hemorrhoids -Acute postprocedure blood loss anemia -Anxiety depression otherwise specified -Patient is a Yazidi not to be given any blood products -Acute UTI with cystitis Plan: Discussed with the patient. Doing well. Keflex as prescribed. Thank you Dr. Brody
== END 2020-02-05 15:48 | disposition home health service (06) | DRG 470 ==
LOC: OR 09:01 → 4SSUR 12:22 → EDSTATUS 13:00 → 4SSUR 02-04 12:26 → OR 02-04 12:26
PROVIDERS: ADMIT Orthopaedic Surgery; ATTEND Orthopaedic Surgery
PROC: 0SR902A Replacement of Right Hip Joint with Metal on Polyethylene Synthetic Substitute, Uncemented, Open Approach (ICD-10-PCS; principal; 2020-02-03 10:40)
DX: M16.11 Unilateral primary osteoarthritis, right hip (principal); D62 Acute posthemorrhagic anemia; J45.909 Unspecified asthma, uncomplicated; K64.8 Other hemorrhoids; Z53.1 Procedure and treatment not carried out because of patient's decision for reasons of belief and group pressure; F41.8 Other specified anxiety disorders; I10 Essential (primary) hypertension; G89.29 Other chronic pain; M54.5 Low back pain; Z79.899 Other long term (current) drug therapy; Z80.9 Family history of malignant neoplasm, unspecified; Z82.49 Family history of ischemic heart disease and other diseases of the circulatory system; Z87.891 Personal history of nicotine dependence; Z90.710 Acquired absence of both cervix and uterus; Z91.5 Personal history of self-harm; Z98.1 Arthrodesis status; Z87.01 Personal history of pneumonia (recurrent); Z98.84 Bariatric surgery status; Z90.49 Acquired absence of other specified parts of digestive tract; Z96.653 Presence of artificial knee joint, bilateral; Z88.1 Allergy status to other antibiotic agents; Z88.7 Allergy status to serum and vaccine
CPT/HCPCS: 73501; 81001; 85025; 86850; 86900; 86901; 87086; 88300

== ENCOUNTER → 2020-03-26 | Outpatient (CLI) | payer MEDICARE ==
--- NOTE | 2020-03-26 14:52 | US ---
EXAMINATION TYPE: US thyroid st tissue head/neck DATE OF EXAM: 03/26/2020 COMPARISON: NONE CLINICAL HISTORY: Hyperparathyroidism E21.3. GLAND SIZE: Right Lobe: 4.3 x 1.3 x 1.7 cm Overall Parenchyma: homogenous Left Lobe: 3.6 x 1.6 x 1.4 cm Overall Parenchyma: homogeneous Isthmus Thickness: 0.3 cm NODULES RIGHT: # of nodules measured on right: 0 subcentimeter nodule noted LEFT: # of nodules measured on left: 0 ISTHMUS: # of nodules measured in the isthmus: 0 Bilateral neck scanned, no evidence of lymphadenopathy. IMPRESSION: Normal thyroid scan, couple of subcentimeter nodules may be present
[2020-03-26 14:59] LABS: Albumin 3.8 g/dL (3.5-5.0); Bilirubin, Delta 0.2 mg/dL (0.0-0.2); Bilirubin,Unconjugated 0.4 mg/dL (0.0-1.1); Calcium 9.4 mg/dL (8.4-10.2); Potassium 3.9 mmol/L (3.5-5.1); Total Bilirubin 0.6 mg/dL (0.2-1.3); Total Protein 7.6 g/dL (6.3-8.2)
[2020-03-26 20:10] LABS: % Iron Saturation 18.46 (12.00-45.00)
== END | disposition home or self-care (01) ==
LOC: RADUSWWP 13:29
PROVIDERS: ATTEND Internal Medicine Endocrinology, Diabetes & Metabolism
DX: E21.3 Hyperparathyroidism, unspecified (principal); D64.9 Anemia, unspecified; R82.2 Biliuria
CPT/HCPCS: 76536; 80053; 82248; 82306; 83540; 83550; 83970; 85652; 86038

== ENCOUNTER → 2020-03-31 | Outpatient (CLI) | payer MEDICARE ==
[2020-03-31 12:16] LABS: Basophils # (A) 0.1 k/uL (0-0.2); Basophils % (A) 2 %; Eosinophils # (A) 0.4 k/uL (0-0.7); Eosinophils % (A) 11 %; HCT 38.1 % (34.0-46.0); HGB 12.1 gm/dL (11.4-16.0); Lymphocytes # (A) 0.8 k/uL (1.0-4.8); Lymphocytes % (A) 19 %; MCH 31.6 pg (25.0-35.0); MCHC 31.7 g/dL (31.0-37.0); MCV 99.8 fL (80.0-100.0); Mean Platelet Volume 7.8; Monocytes # (A) 0.2 k/uL (0-1.0); Monocytes % (A) 6 %; Neutrophils # (A) 2.4 k/uL (1.3-7.7); Neutrophils % (A) 60 %; Platelet Count 267 k/uL (150-450); RBC 3.82 m/uL (3.80-5.40); RDW 13.7 % (11.5-15.5); Reticulocyte % 1.5 % (0.5-2.0); WBC 4.1 k/uL (3.8-10.6)
== END | disposition home or self-care (01) ==
LOC: LABWHC1 11:12
PROVIDERS: ATTEND Internal Medicine
DX: D64.9 Anemia, unspecified (principal)
CPT/HCPCS: 36415; 85025; 85045

== ENCOUNTER → 2020-09-15 | Outpatient (CLI) | payer MEDICARE ==
--- NOTE | 2020-09-17 09:36 | MM ---
Reason for exam: additional evaluation requested from prior study. Last mammogram was performed 11 months ago. History: Patient had first child at age 32. MG discontinued stereo core LT of the left breast, November 21, 2019. Benign right US cyst aspiration of the right breast, August 19, 2009. Benign right breast US guided needle local of the right breast, August 19, 2009. Benign excisional biopsy of the left breast. Physical Findings: Nurse did not find any significant physical abnormalities on exam. MG 3D Diag Mammo W/Cad LASHAE Bilateral CC and MLO view(s) were taken. XCCL view(s) were taken of the right breast. LM with magnification and CC with magnification view(s) were taken of the left breast. Prior study comparison: October 16, 2019, bilateral MG 3d diag mammo w/cad LASHAE. August 30, 2015, mammogram. Punctate calcifications central left breast 12.5cm from nipple, probably benign. These results were verbally communicated with the patient and result sheet given to the patient on 09/15/20. ASSESSMENT: Probably benign, BI-RAD 3 RECOMMENDATION: Follow-up diagnostic mammogram of the left breast in 6 months. (with magnification)
== END | disposition home or self-care (01) ==
LOC: RADMAMWWP 15:07
PROVIDERS: ATTEND Surgery
DX: R92.1 Mammographic calcification found on diagnostic imaging of breast (principal)
CPT/HCPCS: 77066; G0279; 77062

== ENCOUNTER 2020-11-17 16:38 | Emergency (ER) | payer MEDICARE ==
[2020-11-17 16:53] VITALS: TEMP 98.9
[2020-11-17] MEDS ORDERED: ONDANSETRON 4 MG/2 ML VIAL IVP STA (17:06)
[2020-11-17] MEDS ORDERED: SODIUM CHLORIDE 0.9% 1,000 ML IV STA (17:06)
[2020-11-17 17:43] LABS: Basophils % (A) 1 %; Eosinophils # (A) 0.3 k/uL (0-0.7); Eosinophils % (A) 4 %; HCT 38.6 % (34.0-46.0); HGB 13.2 gm/dL (11.4-16.0); Lymphocytes # (A) 1.2 k/uL (1.0-4.8); Lymphocytes % (A) 22 %; MCH 33.4 pg (25.0-35.0); MCHC 34.2 g/dL (31.0-37.0); MCV 97.9 fL (80.0-100.0); Mean Platelet Volume 7.6; Monocytes # (A) 0.3 k/uL (0-1.0); Monocytes % (A) 5 %; Neutrophils # (A) 3.6 k/uL (1.3-7.7); Neutrophils % (A) 64 %; Platelet Count 280 k/uL (150-450); RBC 3.94 m/uL (3.80-5.40); RDW 13.5 % (11.5-15.5); WBC 5.6 k/uL (3.8-10.6)
[2020-11-17 17:48] LABS: Appearance,Urine Clear (Clear); Bilirubin,Urine Negative (Negative); Blood,Urine Negative (Negative); Color,Urine Yellow; Glucose,Urine (UA) Negative (Negative); Ketones,Urine Negative (Negative); Leukocyte Esterase,Urine Large (Negative); Mucus,Urine Rare /hpf; Nitrite,Urine Negative (Negative); Protein,Urine Negative (Negative); RBC,Urine 3 /hpf (0-5); Specific Gravity,Urine 1.021 (1.001-1.035); Squamous Epithelial Cell,Urine 1 /hpf (0-4); Urobilinogen,Urine <2.0 mg/dL (<2.0); WBC,Urine 2 /hpf (0-5)
[2020-11-17 17:53] LABS: Albumin 4.3 g/dL (3.5-5.0); Calcium 9.4 mg/dL (8.4-10.2); Magnesium 1.9 mg/dL (1.6-2.3); Total Bilirubin 0.6 mg/dL (0.2-1.3); Total Protein 8.1 g/dL (6.3-8.2)
[2020-11-17 17:56] LABS: Potassium 5.4 mmol/L (3.5-5.1)
[2020-11-17 18:06] LABS: Troponin I 0.05 ng/mL (0.000-0.034)
--- NOTE | 2020-11-17 18:16 | XR ---
EXAMINATION TYPE: XR chest 2V DATE OF EXAM: 11/17/2020 COMPARISON: 03/16/2016 HISTORY: Pain. Short of breath. TECHNIQUE: 2 views FINDINGS: Heart is normal. Lungs are clear of infiltrate. There is no heart failure. There are no hil ar masses. Thoracic aorta is atherosclerotic. There is spurring in the thoracic spine. IMPRESSION: Atheromatous aorta with aneurysmal changes that has progressed compared to old exam. No a cute lung disease. Normal heart.
--- NOTE | 2020-11-17 18:18 | XR ---
EXAMINATION TYPE: XR Hip Complete RT DATE OF EXAM: 11/17/2020 COMPARISON: 02/03/2020 HISTORY: Pain TECHNIQUE: 2 views FINDINGS: There is right hip prosthesis. Components appear in anatomic position. I see no fracture. IMPRESSION: No complicating process seen. No change compared to old exam.
--- NOTE | 2020-11-17 19:08 | ED ---
General Adult HPI - General Source: patient Mode of arrival: wheelchair Limitations: no limitations <Ary Church - Last Filed: 11/17/20 19:01> <Zack Johns - Last Filed: 11/18/20 11:57> - General Chief complaint: Dizziness Stated complaint: lightheaded, nausea Time Seen by Provider: 11/17/20 16:57 - History of Present Illness Initial comments: Patient is a 75-year-old female with history of hypertension, asthma, presenting to the emergency Department with complaints of feeling lightheaded and some mild nausea that started today. She is also complaining of some right hip pain that started 2 days ago. She does have history of right hip replacement, has been pain-free ever since her surgery about 10 years ago. She denies any falls or trauma. No fevers or chills. Patient states that she does not feel dizzy but just lightheaded that seemed to start after she ate earlier today. She does have some mild nausea, did vomit once. No abdominal pain, no diarrhea. She denies any chest pain or shortness of breath, no diaphoresis. No fevers or chills, no cough. She states she had a similar episode of lightheadedness about 3 weeks ago as well as a very high blood pressure, she was evaluated and admitted to observation at [facility]. She stated her troponin levels were elevated, she had a stress test wrist revealed no acute process according to the patient. She was supposed to see her dialysis biomed technician tomorrow morning, Dr. Maloney. They did change some of her medications and added on a few metoprolol and baby aspirin. Patient has no further complaints at this time. Upon arrival to the ER her vital signs are stable. (Ary Church) - Related Data Home Medications Medication Instructions Recorded Confirmed Cetirizine HCl [Zyrtec] 10 mg PO DAILY 07/29/13 11/17/20 Quinapril HCl [Accupril] 20 mg PO DAILY 12/25/14 11/17/20 amLODIPine [Norvasc] 10 mg PO DAILY 07/03/18 11/17/20 Acetaminophen-Codeine 300-30mg 1 - 2 tab PO Q6H PRN 11/07/19 11/17/20 [Tylenol w/codeine #3] lamoTRIgine [LaMICtal] 25 mg PO BID 02/02/20 11/17/20 Aspirin [Adult Low Dose Aspirin EC] 81 mg PO DAILY 11/17/20 11/17/20 Escitalopram [Lexapro] 10 mg PO DAILY 11/17/20 11/17/20 Metoprolol Tartrate [Lopressor] 25 mg PO BID 11/17/20 11/17/20 Potassium Chloride ER [K-Dur 10] 10 meq PO DAILY 11/17/20 11/17/20 hydroCHLOROthiazide 25 mg PO DAILY 11/17/20 11/17/20 traZODone HCL [Desyrel] 50 mg PO HS 11/17/20 11/17/20 Allergies Allergy/AdvReac Type Severity Reaction Status Date / Time Tetanus Vaccines and Toxoid Allergy Mild Swelling Verified 11/17/20 18:30 tetracycline AdvReac Nausea,ABDOMINAL Verified 11/17/20 18:30 PAIN trout Allergy Mild Rash/Hives Uncoded 11/17/20 18:30 Review of Systems ROS Other: All systems not noted in ROS Statement are negative. <Ary Church - Last Filed: 11/17/20 19:01> ROS Other: All systems not noted in ROS Statement are negative. <Zack Johns - Last Filed: 11/18/20 11:57> ROS Statement: Those systems with pertinent positive or pertinent negative responses have been documented in the HPI. Past Medical History Past Medical History: Asthma, Hypertension, Pneumonia Additional Past Medical History / Comment(s): Hayfever, seasonal allergies, chronic back pain, past MADALNY but not since wt loss, internal hemorrhoids, anemia, migraines when she had menses. Pt is Jehovah Witness-No blood., History of Any Multi-Drug Resistant Organisms: None Reported Past Surgical History: Adenoidectomy, Appendectomy, Back Surgery, Bariatric Surgery, Section, Cholecystectomy, Hernia Repair, Hysterectomy, Orthopedic Surgery, Tonsillectomy Additional Past Surgical History / Comment(s): Knee Replacements R & L, GASTRIC Sleeve, EGDs, colonoscopy, L breast benign bx, x 1. right breast biopsy, excisional per pt Past Anesthesia/Blood Transfusion Reactions: Previous Problems w/ Anesthesia, Family History of Problems w/ Anesthesia Additional Past Anesthesia/Blood Transfusion Reaction / Comment(s): "felt like an elephant was sitting on my chest. It happened twice.". pt is Jahovas Witness, no blood transfusion Past Psychological History: Anxiety, Depression Smoking Status: Former smoker Past Alcohol Use History: Occasional Past Drug Use History: None Reported - Past Family History Father Family Medical History: Coronary Artery Disease (CAD) Additional Family Medical History / Comment(s): Father is . He had REINIER D. Mother Family Medical History: No Reported History Additional Family Medical History / Comment(s): Mother is living and healthy. <Ary Church - Last Filed: 11/17/20 19:01> General Exam Limitations: no limitations <Ary Church - Last Filed: 11/17/20 19:01> - General Exam Comments Initial Comments: GENERAL: Patient is well-developed and well-nourished. Patient is nontoxic and in no acute distress. HEAD: Atraumatic, normocephalic. EYES: Pupils equal round and reactive to light, extraocular movements intact, sclera anicteric, conjunctiva are normal. Eyelids were unremarkable. ENT: TMs normal, nares patent, oropharynx clear without exudates. Moist mucous membranes. NECK: Normal range of motion, supple without lymphadenopathy or JVD. LUNGS: Unlabored respirations. Breath sounds clear to auscultation bilaterally and equal. No wheezes rales or rhonchi. HEART: Regular rate and rhythm without murmurs, rubs or gallops. ABDOMEN: Soft, nontender, normoactive bowel sounds. No guarding, no rebound. No masses appreciated. : Deferred MUSCULOSKELETAL: Normal extremities with adequate strength and normal range of motion, no pitting or edema. No clubbing or cyanosis. Mild pain with palpation of the lateral aspect of the right hip, she has full right hip range of motion, some mild discomfort of the right low back. NEUROLOGICAL: Patient is alert and oriented x 3. Motor and sensory are also intact. Cranial nerves II through XII grossly intact. Symmetrical smile. Normal speech, normal gait. PSYCH: Normal mood, normal affect. SKIN: Warm, Dry, normal turgor, no rashes or lesions noted. (Ary Church) Course Vital Signs 11/17/20 11/17/20 11/17/20 16:50 17:53 18:00 Temperature 98.9 F Pulse Rate 74 71 74 Respiratory 20 18 18 Rate Blood Pressure 106/65 124/78 118/79 O2 Sat by Pulse 98 99 99 Oximetry 11/17/20 11/17/20 11/17/20 20:00 21:00 22:05 Temperature Pulse Rate 78 80 76 Respiratory 18 18 16 Rate Blood Pressure 117/73 120/79 120/76 O2 Sat by Pulse 100 Oximetry EKG Findings - EKG Comments: EKG Findings:: Normal sinus rhythm, normal ECG, no signs of acute ST segment elevation. Ventricular rate 72, TX interval 162, QT 382. Similar to previous EKG on 07/02/2018. <Ary Church - Last Filed: 11/17/20 19:01> Medical Decision Making - Lab Data Result diagrams: 11/17/20 Unknown 11/17/20 Unknown <Ary Church - Last Filed: 11/17/20 19:01> - Lab Data Result diagrams: 11/17/20 Unknown 11/17/20 Unknown <Zack Johns - Last Filed: 11/18/20 11:57> - Medical Decision Making Patient is a 75-year-old female with history of hypertension, asthma, presenting for some lightheadedness and nausea that started today. No chest pain or s hortness of breath, no recent fevers. She is also complaining of some right hip pain has been going on for 3 days. No falls or trauma. Vital signs are stable upon arrival. EKG shows normal sinus rhythm, no signs of acute ST segment elevation. Chest x-ray shows thoracic aorta is atherosclerotic, no acute lung disease, normal heart., right hip x-ray also shows a stable prosthesis, no acute process. Labs show a normal white count, stable hemoglobin, potassium is elevated at 5.4, kidney function is stable, troponin is a little elevated today at 0.050. Patient was given some fluids and some Zofran, is resting comfortably. Patient's vital signs remained stable. Patient stated that 2-3 weeks ago she was admitted at [facility], had an elevated troponin, did have a normal stress test. She was supposed to see Dr. Maloney tomorrow for a follow-up. She is unaware of her labs and troponin numbers. I have been trying to get these records, they have not come yet. (Ary Church) Care signed out to me by physician engineering assistant, Ary Church. Briefly, patient is 75-year-old female she presents today with lightheadedness and nausea. She was seen at [facility] 2 weeks ago where she was admitted with cardiology consultation. She had extensive cardiac workup. She had an elevated troponin at the time of 0.091. She presents today because she is had continuing symptoms of lightheadedness and nausea. Work having symptoms of atypical chest pain recently. Today patient had an elevated troponin 0.050. Her EKG is benign. He is currently asymptomatic. This however is decreased in context given that patient had a higher elevation of troponin 2 weeks ago. She is asymptomatic of any chest symptoms at this time. She has an appointment with cardiology tomorrow. 2 weeks ago she had a negative stress tests. Patient was initially to be admitted to observation with cardiology consultation, cardiac monitoring and serial troponins for elevated troponin. Case was discussed with [facility] hospitalist who did not feel patient was a candidate for admission given her downtrending troponins. patient was agreeable with second troponin to look for further downtrend and be discharged to follow up tomorrow with cardiology. Troponin continues to be downtrending. Patient discharged. Return precautions discussed. Patient is agreeable with disposition. (Zack Johns) - Lab Data Lab Results 11/17/20 11/17/20 11/17/20 Range/Units 17:38 20:37 Unknown WBC 5.6 (3.8-10.6) k/uL RBC 3.94 (3.80-5.40) m/uL Hgb 13.2 (11.4-16.0) gm/dL Hct 38.6 (34.0-46.0) % MCV 97.9 (80.0-100.0) fL MCH 33.4 (25.0-35.0) pg MCHC 34.2 (31.0-37.0) g/dL RDW 13.5 (11.5-15.5) % Plt Count 280 (150-450) k/uL MPV 7.6 Neutrophils % 64 % Lymphocytes % 22 % Monocytes % 5 % Eosinophils % 4 % Basophils % 1 % Neutrophils # 3.6 (1.3-7.7) k/uL Lymphocytes # 1.2 (1.0-4.8) k/uL Monocytes # 0.3 (0-1.0) k/uL Eosinophils # 0.3 (0-0.7) k/uL Basophils # 0.0 (0-0.2) k/uL Sodium (137-145) mmol/L Potassium (3.5-5.1) mmol/L Chloride (98-107) mmol/L Carbon Dioxide (22-30) mmol/L Anion Gap mmol/L BUN (7-17) mg/dL Creatinine (0.52-1.04) mg/dL Est GFR (CKD-EPI)AfAm (>60 ml/min/1.73 sqM) Est GFR (CKD-EPI)NonAf (>60 ml/min/1.73 sqM) Glucose (74-99) mg/dL Calcium (8.4-10.2) mg/dL Magnesium (1.6-2.3) mg/dL Total Bilirubin (0.2-1.3) mg/dL AST (14-36) U/L ALT (4-34) U/L Alkaline Phosphatase (38-126) U/L CK-MB (CK-2) (0.0-2.4) ng/mL Troponin I 0.047 H* (0.000-0.034) ng/mL Total Protein (6.3-8.2) g/dL Albumin (3.5-5.0) g/dL Urine Color Yellow Urine Appearance Clear (Clear) Urine pH 5.0 (5.0-8.0) Ur Specific [place] 1.021 (1.001-1.035) Urine Protein Negative (Negative) Urine Glucose (UA) Negative (Negative) Urine Ketones Negative (Negative) Urine Blood Negative (Negative) Urine Nitrite Negative (Negative) Urine Bilirubin Negative (Negative) Urine Urobilinogen <2.0 (<2.0) mg/dL Ur Leukocyte Esterase Large H (Negative) Urine RBC 3 (0-5) /hpf Urine WBC 2 (0-5) /hpf Ur Squamous Epith Cells 1 (0-4) /hpf Urine Mucus Rare H (None) /hpf 11/17/20 11/17/20 Range/Units Unknown Unknown WBC (3.8-10.6) k/uL RBC (3.80-5.40) m/uL Hgb (11.4-16.0) gm/dL Hct (34.0-46.0) % MCV (80.0-100.0) fL MCH (25.0-35.0) pg MCHC (31.0-37.0) g/dL RDW (11.5-15.5) % Plt Count (150-450) k/uL MPV Neutrophils % % Lymphocytes % % Monocytes % % Eosinophils % % Basophils % % Neutrophils # (1.3-7.7) k/uL Lymphocytes # (1.0-4.8) k/uL Monocytes # (0-1.0) k/uL Eosinophils # (0-0.7) k/uL Basophils # (0-0.2) k/uL Sodium 137 (137-145) mmol/L Potassium 5.4 H (3.5-5.1) mmol/L Chloride 108 H (98-107) mmol/L Carbon Dioxide 20 L (22-30) mmol/L Anion Gap 9 mmol/L BUN 26 H (7-17) mg/dL Creatinine 0.79 (0.52-1.04) mg/dL Est GFR (CKD-EPI)AfAm 85 (>60 ml/min/1.73 sqM) Est GFR (CKD-EPI)NonAf 74 (>60 ml/min/1.73 sqM) Glucose 101 H (74-99) mg/dL Calcium 9.4 (8.4-10.2) mg/dL Magnesium 1.9 (1.6-2.3) mg/dL Total Bilirubin 0.6 (0.2-1.3) mg/dL AST 41 H (14-36) U/L ALT 26 (4-34) U/L Alkaline Phosphatase 96 (38-126) U/L CK-MB (CK-2) 3.0 H (0.0-2.4) ng/mL Troponin I 0.050 H* (0.000-0.034) ng/mL Total Protein 8.1 (6.3-8.2) g/dL Albumin 4.3 (3.5-5.0) g/dL Urine Color Urine Appearance (Clear) Urine pH (5.0-8.0) Ur Specific [place] (1.001-1.035) Urine Protein (Negative) Urine Glucose (UA) (Negative) Urine Ketones (Negative) Urine Blood (Negative) Urine Nitrite (Negative) Urine Bilirubin (Negative) Urine Urobilinogen (<2.0) mg/dL Ur Leukocyte Esterase (Negative) Urine RBC (0-5) /hpf Urine WBC (0-5) /hpf Ur Squamous Epith Cells (0-4) /hpf Urine Mucus (None) /hpf Disposition <Ary Church L - Last Filed: 11/17/20 19:01> Is patient prescribed a controlled substance at d/c from ED?: No <Zack Johns - Last Filed: 11/18/20 11:57> Clinical Impression: Nausea, Elevated troponin Disposition: HOME SELF-CARE Instructions (If sedation given, give patient instructions): Chest Pain (ED), Acute Nausea and Vomiting (ED) Referrals: Adrian Maloney MD [STAFF PHYSICIAN] - 1-2 days
[2020-11-17 22:07] VITALS: BP 120/76; PULSE 76; RESP 16
== END 2020-11-17 22:16 | disposition home or self-care (01) ==
LOC: EC 16:38
DX: R11.0 Nausea (principal); R77.8 Other specified abnormalities of plasma proteins; M25.551 Pain in right hip; I10 Essential (primary) hypertension; J45.909 Unspecified asthma, uncomplicated; F32.9 Major depressive disorder, single episode, unspecified; F41.9 Anxiety disorder, unspecified; Z79.82 Long term (current) use of aspirin; Z79.899 Other long term (current) drug therapy; Z87.19 Personal history of other diseases of the digestive system; Z87.891 Personal history of nicotine dependence; Z88.1 Allergy status to other antibiotic agents; Z90.49 Acquired absence of other specified parts of digestive tract; Z82.49 Family history of ischemic heart disease and other diseases of the circulatory system
CPT/HCPCS: 99284; 96374; 96361; 36415; 93005; 80053; 82553; 83735; 84484; 85025; 81001; 73502; 71046; J2405

== ENCOUNTER → 2021-02-02 | Outpatient (CLI) | payer MEDICARE ==
--- NOTE | 2021-02-02 15:07 | MR ---
EXAMINATION TYPE: MR lumbar spine wo/w con DATE OF EXAM: 02/02/2021 COMPARISON: Lumbar spine x-ray January 10, 2021 HISTORY: Low back pain TECHNIQUE: Multiplanar, multisequence images of the lumbar spine is performed without and with IV contrast, util izing 7.5 mL intravenous Gadavist FINDINGS: Sagittal images of the lumbar spine show alignment to remain satisfactory. There is artifac t from metallic disc material at L2-L3 through the L4-L5 levels. Multilevel disc desiccation above an d below these levels. Mild to moderate anterior spurring L1-L2 level with Modic type II endplate dickerson ges. The conus medullaris is normal in position and signal ending mid L1 level. Nonspecific few lumb osacral nerve root enhancement without suspicious clumping or nodularity. Multilevel posterior spinou s process resection noted. Axial images at T12-L1 level appear within normal limits. Axial images at L1-L2 level show [id number] broad disc bulge effacing anterior thecal sac with mild facet arthropathy bilaterally. There is mild to moderate left greater than right bilateral neura l foraminal narrowing. Axial images at the L2-L3 level show artifact from disc material. There is spinous process resection. Posterior bony projection inferior L2 level mildly effaces the anterior thecal sac. Suspect scarring causing severe bilateral neural foraminal narrowing with loss of foraminal fat seen best on sagittal images. Axial images at L3-L4 level show laminectomy defects with spinous process resection. There is posteri or enhancing scar tissue. Artifact from disc material. Spinal canal preserved. There is ldse-xj-qwauy ate bilateral neural foraminal narrowing. Axial images at the L4-L5 level shows facet arthropathy. There are laminectomy defects with spinous p rocess resection. Spinal canal is preserved. There is moderate bilateral neural foraminal narrowing. Axial images at the L5-S1 level show moderate to advanced facet arthropathy. There is broad-based jose tral disc protrusion minimally effacing anterior thecal sac. There is posterior annular tear. There i s moderate bilateral neural foraminal narrowing. Partial visualization of 3.1 cm T2 hyperintense lesion left kidney axial image 20 without enhancement consistent with simple thin-walled cyst. IMPRESSION: Extensive postsurgical change with successful posterior decompression. Stable and satisfa ctory alignment. Some degenerative changes upper and lower lumbar spine adjacent to levels of surgery noted.
== END ==
LOC: RADMRIMAIN 12:44
PROVIDERS: ATTEND Orthopaedic Surgery
DX: M47.816 Spondylosis without myelopathy or radiculopathy, lumbar region (principal); Z98.890 Other specified postprocedural states
CPT/HCPCS: 72158; A9585

== ENCOUNTER → 2021-03-03 | Outpatient (CLI) | payer MEDICARE | END | disposition home or self-care (01) | LOC: LABPAT 16:05 | PROVIDERS: ATTEND Orthopaedic Surgery | DX: Z01.812 Encounter for preprocedural laboratory examination (principal); M19.012 Primary osteoarthritis, left shoulder | CPT/HCPCS: 87070 ==

== ENCOUNTER → 2021-03-29 | Day surgery (SDC) | payer MEDICARE ==
[2021-03-24 09:25] VITALS: BMI 31.3
--- NOTE | 2021-03-28 10:28 | HP ---
HISTORY AND PHYSICAL CHIEF COMPLAINT: Left shoulder pain. HISTORY OF PRESENT ILLNESS: Patient is a 75-year-old right-hand dominant retired female who presents with progressive left shoulder pain for the past several years, worsening recently. She is having pain with overhead use and at night. She has tried medications in addition to activity modifications without much relief. She notes it bothers her daily. PAST MEDICAL HISTORY: Significant for arthritis, asthma, hypertension and depression. PAST SURGICAL HISTORY: Significant for previous lumbar spine fusion along with total hip arthroplasty. CURRENT MEDICATIONS: Amlodipine, Lexapro, quinapril, Zyrtec, Etodolac, aspirin and Ultram. ALLERGIES: TETANUS. FAMILY HISTORY: Significant for cancers and heart disease. SOCIAL HISTORY: Significant for previous tobacco use. REVIEW OF SYSTEMS: Sixteen-point review of systems otherwise reviewed and is noncontributory. PHYSICAL EXAMINATION: On examination, the patient is approximately 5 feet 6 inches, 180 pounds of mesomorphic habitus. HEENT exam is nonfocal. Neck is supple. On examination of her left shoulder, she is tender about the anterior subacromial space and glenohumeral joint. She has moderate crepitus. Active range of motion: Forward elevation 135 degrees, external rotation lateral side 20 degrees, internal rotation to L1. Motor strength 5 minus over 5 for abduction and external rotation. Impingement test, Neer test and Speed test are positive. Her distal neurovascular exam appears intact in the left upper extremity. X-rays to include AP, outlet and scapular outlet views of the left shoulder obtained in the office show severe glenohumeral joint osteoarthrosis with deer-bg-bijt changes and subchondral sclerosis. The humeral head to acromial distance appears to be maintained. IMPRESSION: Left severe glenohumeral joint osteoarthrosis. RECOMMENDATIONS: I talked to the patient at length regarding her condition and treatment options. At this point, she is quite limited and symptomatic with pain and stiffness related to her osteoarthrosis despite previous conservative measures. After thorough discussion, she opts to proceed with surgery. We will plan to proceed with left total shoulder arthroplasty. MMODL / IJN: [id number] /
[~2021-03-29] MED LIST changes: -ACETAMINOPHEN TAB 500 MG TAB PO ONE; +ACETAMINOPHEN TAB 500 MG TAB PO PRN; +HYDROmorphone 0.5 MG/0.5 ML SYRINGE IVP PRN; +LACTATED RINGERS 1,000 ML IV SCH; +LIDOCAINE 1% (10MG/ML) FOR IV START INTRADERMA PRN; -MELOXICAM 7.5 MG TAB PO ONE; +MELOXICAM 7.5 MG TAB PO PRN; +MIDAZOLAM 2 MG/2 ML VIAL IVP ONE; -TRANEXAMIC ACID 1,000 MG in SODIUM CHLORIDE 0.9% 100 ML IVPB ONE; +TRANEXAMIC ACID 1,000 MG in SODIUM CHLORIDE 0.9% 100 ML IVPB PRN; -fentaNYL (PF) 50 MCG/ML 2 ML AMP IV PRN
[2021-03-29 06:57] VITALS: PULSE 72; TEMP 96.9
[2021-03-29 07:36] VITALS: BP 131/80; RESP 15
--- NOTE | 2021-03-30 13:23 | P.ANPRN ---
Procedure Note - Anesthesia - Nerve Block Performed Left Interscalene Single Time Out Performed: Yes Date of Procedure: 03/30/21 Procedure Start Time: : Procedure Stop Time: : Location of Patient: PreOp Indication: Acute Post-Operative Pain, Requested by Surgeon Sedation Type: Sedate with meaningful contact maintained Preparation: Sterile Prep Position: Supine Needle Types: Pajunk Needle Gauge: 21 Ultrasound used to visualize needle placement: Yes Ultrasound used to observe medication spread: Yes Blood Aspirated: No Pain Paresthesia on Injection Noted: No Resistance on Injection: Normal Image Stored and Saved: Yes Events: Uneventful and Well Tolerated (ropi .5% 20cc plus dexamethasone 4mg)
== END ==
LOC: OR 06:19
PROVIDERS: ATTEND Orthopaedic Surgery
DX: M19.012 Primary osteoarthritis, left shoulder (principal); U07.1 COVID-19; I10 Essential (primary) hypertension; Z53.8 Procedure and treatment not carried out for other reasons; J45.909 Unspecified asthma, uncomplicated; F32.A Depression, unspecified; Z20.822 Contact with and (suspected) exposure to COVID-19; Z96.653 Presence of artificial knee joint, bilateral; Z96.641 Presence of right artificial hip joint; Z79.1 Long term (current) use of non-steroidal anti-inflammatories (NSAID); Z79.82 Long term (current) use of aspirin; Z79.891 Long term (current) use of opiate analgesic; Z79.899 Other long term (current) drug therapy; Z98.1 Arthrodesis status; Z88.7 Allergy status to serum and vaccine; Z88.1 Allergy status to other antibiotic agents; Z91.018 Allergy to other foods
CPT/HCPCS: 87635; J2250; J2405

== ENCOUNTER 2021-04-12 06:02 | Day surgery (SDC) | payer MEDICARE ==
[2021-04-05 15:28] VITALS: BMI 31.7
--- NOTE | 2021-04-11 09:48 | HP ---
HISTORY AND PHYSICAL CHIEF COMPLAINT: Left shoulder pain. HISTORY OF PRESENT ILLNESS: The patient is a 75-year-old [id number] retired female who presents with progressive left shoulder pain for the past several years, worsening over the past year. She notes pain with any attempted overhead use and at night. She notes stiffness and soreness. She has tried medications, without much relief. PAST MEDICAL HISTORY: Significant for arthritis, asthma, hypertension and depression. PAST SURGICAL HISTORY: Significant for previous lumbar surgery in addition to total hip arthroplasty. CURRENT MEDICATIONS: Amlodipine, Lexapro, quinapril, Zyrtec, Tylenol with codeine, aspirin and Ultram. ALLERGIES: She notes allergies to TETANUS. FAMILY HISTORY: Significant for cancer and heart disease. SOCIAL HISTORY: Significant for previous tobacco use. REVIEW OF SYSTEMS: Sixteen-point review of systems otherwise reviewed and is noncontributory. PHYSICAL EXAMINATION: On examination, the patient is approximately 5 feet 6 inches, 180 pounds of mesomorphic habitus. HEENT exam is nonfocal. Neck is supple. On examination of her left shoulder, she is tender about the anterior subacromial space. She has moderate crepitus. Active range of motion: Forward elevation 135 degrees, external rotation of the arm at side 20 degrees, internal rotation to L1. Motor strength 5 minus over 5 for abduction and external rotation. Impingement test, Neer test and Speed test are positive. Her distal neurovascular exam appears intact in the right upper extremity. X-rays to include AP and scapular outlet views of the left shoulder obtained in the office show severe glenohumeral joint osteoarthrosis with mhra-lm-fert changes and subchondral sclerosis. IMPRESSION: Left severe glenohumeral joint osteoarthrosis. RECOMMENDATIONS: I talked to the patient at length regarding her condition along with treatment options. At this point she has significant pain and limitations secondary to her left shoulder osteoarthrosis despite previous conservative measures. After thorough discussion, she opted to proceed with surgery. We will plan to proceed with left total shoulder arthroplasty. Risks and benefits were discussed at length in layman's terms. MMODL / IJN: [id number] / AXEL
[~2021-04-12 06:02] MED LIST changes: -HYDROmorphone 0.5 MG/0.5 ML SYRINGE IVP PRN; -LACTATED RINGERS 1,000 ML IV SCH; -LIDOCAINE 1% (10MG/ML) FOR IV START INTRADERMA PRN; -MIDAZOLAM 2 MG/2 ML VIAL IVP ONE; -ONDANSETRON 4 MG/2 ML VIAL IVP ONE
[2021-04-12] MEDS ORDERED: LACTATED RINGERS 1,000 ML IV ONE ×2 (06:57)
[2021-04-12] MEDS ORDERED: LIDOCAINE 1% (10MG/ML) FOR IV START INTRADERMA ONE (06:58)
[2021-04-12] MEDS ORDERED: ONDANSETRON 4 MG/2 ML VIAL ONE (07:09)
[2021-04-12] MEDS ORDERED: MIDAZOLAM 2 MG/2 ML VIAL IVP ONE (07:16)
[2021-04-12] MEDS ORDERED: PROPOFOL 10 MG/ML 20 ML VIAL IV ONE (07:55)
[2021-04-12] MEDS ORDERED: fentaNYL (PF) 50 MCG/ML 2 ML AMP ONE (07:55)
[2021-04-12] MEDS ORDERED: LIDOCAINE 1% INJ 10MG/ML (20 ML MDV) ONE (07:55)
[2021-04-12] MEDS ORDERED: DEXAMETHASONE SOD PHOSPHATE 4 MG/ML 1 ML VIAL ONE (07:55)
[2021-04-12] MEDS ORDERED: SODIUM CHLORIDE 0.9% 100 ML BAG ONE (07:55)
[2021-04-12] MEDS ORDERED: ROPIVACAINE 5 MG/ML 30 ML VIAL ONE (07:55)
[2021-04-12] MEDS ORDERED: TRANEXAMIC ACID 1,000 MG/10 ML VIAL ONE (07:55)
[2021-04-12] MEDS ORDERED: SUCCINYLCHOLINE CHLORIDE 100 MG/5 ML SYR IV ONE (07:55)
[2021-04-12] MEDS ORDERED: GLYCOPYRROLATE 0.2 MG/ML 2 ML VIAL ONE (07:55)
[2021-04-12] MEDS ORDERED: PHENYLEPHRINE-0.9% NACL SYG 1,000 MCG/10 ML SYRINGE ONE (07:55)
[2021-04-12] MEDS ORDERED: ceFAZolin 1,000 MG in SODIUM CHLORIDE 0.9% 1,000 ML IRRIGATION ONE (08:33)
--- NOTE | 2021-04-12 08:37 | P.ANPRN ---
Procedure Note - Anesthesia - Nerve Block Performed Left Interscalene Single Time Out Performed: Yes ([id number]) Date of Procedure: 04/12/21 Procedure Start Time: 07:15 Procedure Stop Time: :20 Location of Patient: PreOp Indication: Acute Post-Operative Pain, Analgesia, Dx/Pain Location, Requested by Surgeon Sedation Type: Sedate with meaningful contact maintained Preparation: Sterile Prep, Sterile Dressing Position: Sitting Catheter: None Needle Types: Pajunk Needle Gauge: 21 Ultrasound used to visualize needle placement: Yes Ultrasound used to observe medication spread: Yes Injectate: 0.5% Ropivacaine (see comment for volume) (20ml mixed with 4 mg of dexamethasone) Blood Aspirated: No Pain Paresthesia on Injection Noted: No Resistance on Injection: Normal Image Stored and Saved: Yes Events: Uneventful and Well Tolerated
[2021-04-12] MEDS ORDERED: HYDROcodone/APAP 5-325MG 1 EACH TAB PO PRN (10:03)
[2021-04-12] MEDS ORDERED: SENNOSIDES-DOCUSATE SODIUM 1 EACH TAB PO PRN (10:03)
--- NOTE | 2021-04-12 10:29 | P.OP ---
Date of Procedure: 04/12/21 Preoperative Diagnosis: Left severe glenohumeral joint osteoarthrosis Postoperative Diagnosis: Same in addition to a large retracted rotator cuff tear Procedure(s) Performed: Left reverse total shoulder arthroplasty Implants: Arthrex Anesthesia: naya VERNON Surgeon: Jimmy Brody Auto Hiker #1: Dashawn Dobson Estimated Blood Loss (ml): 100 Pathology: other (Humeral head) Condition: stable Disposition: PACU Indications for Procedure: The patient's a 75-year-old female who presents with progressive left shoulder pain secondary to osteoarthrosis despite conservative measures. A discussion of the risks and benefits of operative intervention versus continued conservative measures was made with patient. She opted to proceed with surgery. Operative risks to include infection, neurovascular injury, fracture, component loosening/failure need for subsequent procedures was discussed. Informed consent was obtained. Operative Findings: As below Description of Procedure: The patient was brought to the operating room, and after induction of general anesthesia was placed in a beachchair position. The bony prominences were appropriately padded. I examined the left shoulder. There was moderate lack of passive forward elevation and external rotation. The left upper extremity was prepped and draped in normal fashion. The bony outlines the coracoid process, distal clavicle, and acromion were outlined with a skin marker. A pulse centimeter deltopectoral incision was made lateral to the coracoid process. Skin was incised sharply. Subcutaneous tissues were divided bluntly. Electrocautery was used for hemostasis. The cephalic vein was identified and gently retracted laterally with the deltoid. The deltopectoral was bluntly developed. Subdeltoid adhesions were then released. The self-retaining retractor was placed. The conjoined tendon was retracted medially and the deltoid laterally. The biceps was identified. Its sheath was opened. A biceps tenotomy was performed along the remaining tendon did retract distally. Pseudocapsule was excised. The head was then exposed. The shoulder was dislocated. A starting hole was made in line with the humeral shaft. The canal was reamed by hand up to size 7. There was good distal chatter. The cutting guide was then placed. I planned on 20 of retroversion. The humeral head cut was then made. The bone was removed in one fragment. Residual inferomedial osteophytes were removed flush with the [place] cortical bone. The cut surface was protected with a metal plate. Attention was then paid towards preparing the glenoid. An anterior and posterior retractors placed. The labrum was released from the 6-12 o'clock position. Remaining biceps was removed as well. A guidepin was placed in the central portion of the glenoid. The reamer was used down to a bleeding bony surface. The central peg hole was drilled. The standard baseplate with a 25 mm post was inserted with good purchase. Inferior and superior locking screws the appropriate length were placed. Good purchase was obtained. The 36 mm +4 glenosphere was inserted and secured with the central screw. This was fully seated. Care was taken to avoid any soft tissue interposition. Attention was then paid towards preparing the proximal humerus. The appropriate broach was placed and 20 of retroversion and was fully seated. A 36 mm epiphyseal reamer was utilized. A size 9 stem with a size 36 epiphysis was placed and 20 of retroversion. Trial reduction was obtained with a 36 mm + 6 articular surface. The shoulder was taken through range of motion. He was felt to be stable in flexion and extension with internal and external rotation. I felt there was adequate religious of soft tissue tension judging off the conjoined tendon. The shoulder was gently dislocated. The trial components were then removed. The final size 9 press-fit stem along with a size 36 mm epiphysis was fully seated. There was good rotational stability. The 36 mm + 6 articular surface was impacted. The shoulder again was gently reduced and taken through range of motion. Again it was felt to be stable in all planes. Pulsatile lavage was utilized. The subscapularis was a attached to the lesser tuberosity with #2 Ethibond suture. The deltopectoral interval was closed with interrupted 2-0 Vicryl sutures. The skin was reapproximated with 3- 0 subcuticular Prolene suture. Steri-Strips were applied. A sterile dressing was applied. A sling was placed. The patient was awoken from general anesthesia and transferred to recovery room in good condition. Blood loss was estimated at 100 mL. No complications were incurred. Sponge and needle counts were correct at the end the case. Michael CRUZ assisted during the major components of the case to include exposure, glenoid and humeral preparation, implantation, and closure.
--- NOTE | 2021-04-12 11:00 | XR ---
EXAMINATION TYPE: XR shoulder limited LT DATE OF EXAM: 04/12/2021 COMPARISON: NONE HISTORY: 75-year-old female status post reverse left total shoulder arthroplasty TECHNIQUE: 2 views FINDINGS: Initial reversed left total shoulder arthroplasty. Both posterior and humeral stem components of the prosthesis appear well seated without periprosthetic fracture. Alignment appears appropriate. Some un derlying degenerative change noted at the AC joint. Some soft tissue air related to recent operation. IMPRESSION: Uncomplicated postoperative appearance reverse left total shoulder arthroplasty.
--- NOTE | 2021-04-12 15:53 | P.CONS ---
History of Present Illness - Reason for Consult Consult date: 04/12/21 - History of Present Illness This is dictation on consult requested by Dr. Torres for postoperative management. Dictation by Dr. Duran Date of service 04/0708/05/2021. Patient admitted by Dr. Torres orthopedic surgeon and admitted with the postoperative diagnosis severe glenoid joint osteoarthrosis on the left side with the underlying larger retracted rotator cuff tear patient underwent today in April 07 with the left reverse total shoulder arthroplasty. The patient had the severe complain of the pain of the left shoulder had several injections in the past and did not help and subsequently Dr. Torres see the marlyn ent evaluated her and did the investigation and advised her with the surgery. Patient underwent surgery seen postoperative, she is doing very well and she has the sling of the left arm no severe pain which is controlled. History of medical illness #1 left shoulder pain with the arthritis. She had history of bilateral knee joint replacement and she had also surgery on the lower back by Dr. Edgardo Aguero in the past she also seen Dr. Wynn for underlying arthritis and [place] of the cervical spine. And she had left Arthroplasty. Today she had the left shoulder total arthroplasty. She has underlying history of anxiety or depression, hypertension. No nausea no vomiting postoperative period her blood pressure was controlled Temperature 98.1 F oral, pulse rate 78 bpm regular sinus, respiratory rate 16/m nonlabored, her blood pressure 131/84 with a mean 99, oxygen saturation 94% on room air. Head was normocephalic and atraumatic it was equal reactive conjunctiva was pink sclera was nonicteric. Oropharynx natural teeth no difficulty in eating and swallowing. No fascial acetaminophen 3. Neck was supple no JVD no thyromegaly no lymphadenopathy trachea midline history of arthritis of the cervical spine Chest clear to auscultation and percussion no wheezes no rhonchi's. Heart regular sinus rhythm Abdomen obese positive bowel sounds no organ enlargement. Extremities: Left shoulder arthroplasty. Today done on 04/12/2021. And no edema and good pulses of the lower extremities. Assessment and plan Hypertension is controlled, we'll continue her medication and that he consolation was done. In regard of the pain with the shoulder orthopedic surgeon addressing that with the patient and given her the pain medication. History of the depression and anxiety with resume her home medication. We'll follow with you Dr. Torres until patient discharged. Past Medical History Past Medical History: Asthma, Hypertension, Osteoarthritis (OA), Pneumonia, Sleep Apnea/CPAP/BIPAP Additional Past Medical History / Comment(s): Hayfever, seasonal allergies, chronic back pain, hx Sleep Apnea, none since wt loss, internal hemorrhoids, anemia, migraines when she had menses. Jehovah Witness-No blood. "Unstable on feet". History of Any Multi-Drug Resistant Organisms: None Reported Past Surgical History: Adenoidectomy, Appendectomy, Back Surgery, Bariatric Surgery, Section, Cholecystectomy, Hernia Repair, Hysterectomy, Joint Replacement, Orthopedic Surgery, Tonsillectomy Additional Past Surgical History / Comment(s): Bilateral knee replacements, right hip replacement, Gastric Sleeve, EGDs, colonoscopy, left breast biopsy - benign, right breast excisional biopsy, Section X1, bilateral cataracts removed. rev TLS 04/12/21 Past Anesthesia/Blood Transfusion Reactions: Previous Problems w/ Anesthesia Additional Past Anesthesia/Blood Transfusion Reaction / Comm: "[place] like an elephant was sitting on my chest, it happened twice." Jehovah Witness, no blood transfusions. "Daughter had reaction to anesthesia, eyes were really red after." Past Psychological History: Anxiety, Depression Additional Psychological History / Comment(s): Pt states she lives with her mother and her son and patrizia-in-law. She has hx of depression and states she recently ran out of one of her antidepressants and during that time had increased depression but no thoughts of suicide or plans of suicide. Pt states at the age of 14 yrs she attempted suicide with overdose. No other attempts. Pt is independent. Smoking Status: Former smoker Past Alcohol Use History: Occasional Additional Past Alcohol Use History / Comment(s): Started smoking in 1964 and quit in 1979. Past Drug Use History: None Reported Additional Drug Use History / Comment(s): Pt states she occasionally uses marijuana oils. - Past Family History Father Family Medical History: Coronary Artery Disease (CAD) Additional Family Medical History / Comment(s): Father is . He had ASHD. Mother Family Medical History: No Reported History Additional Family Medical History / Comment(s): Mother is living and healthy. Medications and Allergies Home Medications Medication Instructions Recorded Confirmed Type Cetirizine HCl [Zyrtec] 10 mg PO QAM 07/29/13 04/12/21 History Quinapril HCl [Accupril] 20 mg PO QAM 12/25/14 04/12/21 History amLODIPine [Norvasc] 5 mg PO QAM 07/03/18 04/12/21 History lamoTRIgine [LaMICtal] 25 mg PO BID 02/02/20 04/12/21 History Aspirin [Adult Low Dose Aspirin EC] 81 mg PO DAILY 11/17/20 04/12/21 History Escitalopram [Lexapro] 10 mg PO QAM 11/17/20 04/12/21 History Metoprolol Tartrate [Lopressor] 25 mg PO BID 11/17/20 04/12/21 History traZODone HCL [Desyrel] 50 mg PO HS 11/17/20 04/12/21 History hydrALAZINE HCL 25 mg PO BID 03/23/21 04/12/21 History Allergies Allergy/AdvReac Type Severity Reaction Status Date / Time Tetanus Vaccines and Toxoid Allergy Mild Swelling Verified 04/12/21 07:02 tetracycline AdvReac Nausea,ABDOMINAL Verified 04/12/21 07:02 PAIN trout Allergy Mild Rash/Hives Uncoded 04/12/21 07:02 Physical Exam Vitals: Vital Signs Temp Pulse Pulse Resp BP Pulse Ox 04/12/21 12:55 98.1 F 78 16 131/84 94 L 04/12/21 12:16 78 16 122/66 98 04/12/21 12:00 76 16 97/69 100 04/12/21 11:47 78 16 127/66 100 04/12/21 11:31 75 16 122/66 100 04/12/21 11:16 70 16 120/64 100 04/12/21 11:01 72 16 125/68 100 04/12/21 10:46 71 16 137/69 100 04/12/21 10:32 74 16 137/66 97 04/12/21 10:21 97.6 F 86 12 170/81 97 04/12/21 07:35 83 18 116/65 96 04/12/21 07:25 79 18 119/66 100 04/12/21 06:44 989 F H 04/12/21 06:39 99.6 F 89 18 158/82 97 Intake and Output 04/12/21 04/12/21 04/12/21 06:59 14:59 22:59 Intake Total 1031 Output Total 100 Balance 931 Intake: IV 851 Oral 180 Output: Estimated Blood Loss 100 Other: Weight 86.8 kg 86.8 kg
[2021-04-12] MEDS: HYDROcodone/APAP 5-325MG 1 EACH TAB PO PRN (18:25)
[2021-04-12] MEDS: HYDROmorphone 0.5 MG/0.5 ML SYRINGE IVP PRN (20:49)
[2021-04-12] MEDS: hydrALAZINE HCL 25 MG TAB PO SCH (20:49)
[2021-04-12] MEDS: METOPROLOL TARTRATE 25 MG TAB PO SCH (20:49)
[2021-04-12] MEDS: diphenhydrAMINE 25 MG CAP PO PRN (20:49)
[2021-04-12] MEDS: lamoTRIgine 25 MG TAB PO SCH ×2 (20:49→20:51)
[2021-04-12] MEDS ORDERED: traZODone HCL 50 MG TAB PO SCH (21:00)
[2021-04-13] MEDS: HYDROcodone/APAP 5-325MG 1 EACH TAB PO PRN ×3 (00:15→12:27)
[2021-04-13] MEDS: HYDROmorphone 0.5 MG/0.5 ML SYRINGE IVP PRN ×3 (01:19→14:50)
[2021-04-13] MEDS: diphenhydrAMINE 25 MG CAP PO PRN (06:03)
[2021-04-13] MEDS ORDERED: amLODIPine 5 MG TAB PO SCH (09:00)
[2021-04-13] MEDS ORDERED: LORATADINE 10 MG TAB PO SCH (09:00)
[2021-04-13] MEDS ORDERED: ESCITALOPRAM 10 MG TAB PO SCH (09:00)
[2021-04-13] MEDS ORDERED: lisinopriL 20 MG TAB PO SCH (09:00)
[2021-04-13] MEDS ORDERED: ASPIRIN 81 MG PO SCH (09:00)
[2021-04-13] MEDS ORDERED: ASPIRIN 325 MG TAB PO SCH (09:00)
[2021-04-13 09:05] LABS: Basophils # (A) 0.02 X 10*3/uL (0.00-0.10); Basophils % (A) 0.2 %; Eosinophils # (A) 0.18 X 10*3/uL (0.04-0.35); Eosinophils % (A) 1.8 %; HCT 33.7 % (37.2-46.3); HGB 10.8 g/dL (12.0-15.0); Lymphocytes # (A) 0.67 X 10*3/uL (0.90-5.00); Lymphocytes % (A) 6.8 %; MCV 96.8 fL (80.0-97.0); Mean Platelet Volume 10.9 fL (9.5-12.2); Monocytes # (A) 0.84 X 10*3/uL (0.20-1.00); Monocytes % (A) 8.6 %; Neutrophils # (A) 8.08 X 10*3/uL (1.80-7.70); Neutrophils % (A) 82.4 %; Platelet Count 226 X 10*3/uL (140-440); RBC 3.48 X 10*6/uL (4.10-5.20); RDW 13.4 % (11.5-14.5); WBC 9.81 X 10*3/uL (4.50-10.00)
[2021-04-13] MEDS: hydrALAZINE HCL 25 MG TAB PO SCH (09:12)
[2021-04-13] MEDS: METOPROLOL TARTRATE 25 MG TAB PO SCH (09:12)
[2021-04-13] MEDS: lamoTRIgine 25 MG TAB PO SCH (09:13)
--- NOTE | 2021-04-13 11:12 | P.DS ---
Providers Date of admission: 04/12/2021 Expected date of discharge: 04/13/21 Attending physician: Jimmy Brody Consults: 04/12/21 10:08 Consult Physician Routine Consulting Provider: Joo Sanchez Reason/Comments: Medical Management s/p reverse left total shoulder arthroplasty Do you want consulting provider notified?: Yes Primary care physician: Joo Sanchez Hospital Course: Date of admission: 04/12/2021 Date of discharge: 04/13/2021 Admission diagnosis: Left severe glenohumeral joint osteoarthrosis Discharge diagnosis: Same in addition to a large retracted rotator cuff tear Attending physician: Dr. Brody Surgical procedures: Left reverse total shoulder arthroplasty Brief history: Patient is a 75-year-old female with a history of with left se [place] glenohumeral joint osteoarthrosis and large retracted rotator cuff tear. At this point patient has failed conservative treatment measures and has opted to proceed with a elective left reverse total shoulder arthroplasty. Hospital course: Details of patient's surgery can be found in operative report. Patient tolerated the procedure well and was subsequently transported to orthopedic floor. Patient's orthopeidc and medical care was provided daily. Patient had daily laboratory tests performed for evaluation of overall blood counts. Patient had daily physical therapy to include strengthening range of motion as well as education with walker ambulation. Patient was treated with aspirin for their postoperative DVT prophylaxis during their inpatient stay. Patient was noted to have a relatively uneventful postoperative course. Patient reported satisfactory pain control with oral pain medications by postoperative day 1. Patient showed satisfactory progress with physical therapy. Patient moved steadily through the program and had no difficulty meeting the goals by postoperative day 1. Given patient's otherwise satisfactory course and having met physical therapy goals, plan is to discharge patient home on postoperative day 1. Discharge condition/disposition: Patient will be discharged home in stable condition. Discharge medications: Instructions are given on resumption of patient's normal daily medications per primary care recommendation, in addition patient will be prescribed [place] 7.5 mg/325 mg; Colace; aspirin 325 mg daily 30 days. Discharge instructions: 1. Wound care and infection precautions, keep incision dry and covered while showering, no lotions, creams, moisturizers. No soaking, tubs, pools, hottubs. Do not scrub over the incision. 2. Weight-bear as tolerated with walker / cane until follow-up. Nonweightbearing left arm. Keep sling on left arm at all times, except while showering. 3. Ice when necessary. Do not exceed 20 minutes per hour with ice pack. 4. Pain meds and anticoagulants per prescription. 5. Pain medication has potential to cause constipation. Increase oral fluid and fiber intake. Contact primary care provider if you have not had a bowel movement within 48 hours after discharge 6. No anti-inflammatory medication until discussed at first post operative visit, this including Motrin, Aleve, Mobic, Diclofenac. 7. Follow up in office at 2 weeks postop with Clifton Dobson PA-C / Michael Mejia PA-C 8. Follow up with your primary care doctor 7-10 days after discharge. 9. Contact [facility] with any questions, . Keep incision clean, dry, intact. While showering, cover incision was Saran wrap. Medications: [place] 7.5 mg/325 mg; aspirin 325 mg daily 30 days; Colace Assessment: Left severe glenohumeral joint osteoarthrosis Procedures: Left reverse total shoulder arthroplasty Patient Condition at Discharge: Good Plan - Discharge Summary Discharge Rx Participant: Yes New Discharge Prescriptions: New Aspirin 325 mg PO BID #30 tab HYDROcodone/APAP 7.5-325MG [[place] 7.5] 1 each PO Q6HR PRN #32 tab PRN Reason: Pain No Action Cetirizine HCl [Zyrtec] 10 mg PO QAM Quinapril HCl [Accupril] 20 mg PO QAM amLODIPine [Norvasc] 5 mg PO QAM lamoTRIgine [LaMICtal] 25 mg PO BID traZODone HCL [Desyrel] 50 mg PO HS Metoprolol Tartrate [Lopressor] 25 mg PO BID Escitalopram [Lexapro] 10 mg PO QAM hydrALAZINE HCL 25 mg PO BID Discharge Medication List Cetirizine HCl [Zyrtec] 10 mg PO QAM 07/29/13 [History] Quinapril HCl [Accupril] 20 mg PO QAM 12/25/14 [History] amLODIPine [Norvasc] 5 mg PO QAM 07/03/18 [History] lamoTRIgine [LaMICtal] 25 mg PO BID 02/02/20 [History] Escitalopram [Lexapro] 10 mg PO QAM 11/17/20 [History] Metoprolol Tartrate [Lopressor] 25 mg PO BID 11/17/20 [History] traZODone HCL [Desyrel] 50 mg PO HS 11/17/20 [History] hydrALAZINE HCL 25 mg PO BID 03/23/21 [History] Aspirin 325 mg PO BID #30 tab 04/13/21 [Rx] HYDROcodone/APAP 7.5-325MG [[place] 7.5] 1 each PO Q6HR PRN #32 tab 04/13/21 [Rx] Follow up Appointment(s)/Referral(s): Michael Mejia, IRMA [PHYSICIAN EXHAUST EQUIPMENT OPERATOR] - 2 Weeks Activity/Diet/Wound Care/Special Instructions: Discharge instructions: 1. Wound care and infection precautions, keep incision dry and covered while showering, no lotions, creams, moisturizers. No soaking, tubs, pools, hottubs. Do not scrub over the incision. 2. Weight-bear as tolerated with walker / cane until follow-up. Nonweightbearing left arm. Keep sling on left arm at all times, except while showering. 3. Ice when necessary. Do not exceed 20 minutes per hour with ice pack. 4. Pain meds and anticoagulants per prescription. 5. Pain medication has potential to cause constipation. Increase oral fluid and fiber intake. Contact primary care provider if you have not had a bowel movement within 48 hours after discharge 6. No anti-inflammatory medication until discussed at first post operative visit, this including Motrin, Aleve, Mobic, Diclofenac. 7. Follow up in office at 2 weeks postop with Clifton Dobson PA-C / Michael Mejia PA-C 8. Follow up with your primary care doctor 7-10 days after discharge. 9. Contact [facility] with any questions, . Keep incision clean, dry, intact. While showering, cover incision was Saran wrap. Medications: [place] 7.5 mg/325 mg; aspirin 325 mg daily 30 days; Colace Discharge Disposition: HOME SELF-CARE
--- NOTE | 2021-04-13 11:24 | P.PN ---
Subjective Progress Note Date: 04/13/21 Principal diagnosis: Left severe glenohumeral joint osteoarthrosis with large retracted rotator cuff tear Patient was seen at bedside this morning resting comfortably lying semirecumbent in bed with sling on left arm. Patient says she has gotten up multiple times since surgery. She does mention that she is in a decent amount of pain, but feels she can go home today. She says she does have children who can help her out initially. Patient does use a cane to ambulate sometimes. Patient says she has not had a bowel movement yet, but she has been passing gas. Patient denies chest pain, fever, shortness breath, nausea, vomiting, change in vision, loss of bowel/bladder control. Objective - Vital Signs Vital signs: Vital Signs Temp 98.5 F 04/13/21 06:30 Pulse 66 04/13/21 06:30 Resp 18 04/13/21 06:30 BP 135/79 04/13/21 06:30 Pulse Ox 99 04/13/21 06:30 Intake & Output 04/12/21 04/13/21 04/13/21 18:59 06:59 18:59 Intake Total 1081 Output Total 450 Balance 631 Weight 86.8 kg Intake: IV 851 Intake, IV Titration 50 Amount ceFAZolin 2 gm In Sodium 50 Chloride 0.9% 50 ml @ 100 mls/hr IVPB Q8HR [facility] Rx# :[id number] Oral 180 Output: Urine 350 Estimated Blood Loss 100 Other: Voiding Method Toilet Toilet # Voids 1 - Exam Left shoulder: Incision is clean, dry, and intact. The tape is in good condition. There is minimal soft tissue swelling and ecchymosis surrounding the distal aspects of the incision. Calf is soft, no tenderness with palpation. Plantar flexion, dorsiflexion, EHL, FHL are intact. Sensory exam to light touch throughout the extremity is intact, dorsal pedis pulses 2+. Patient has good ROM in left elbwo and wrist in flexion and extension. Sling in place on LUE. Cap refill < 3 sec bilaterally in digits of left hand. Radial pulses intact, 2+ bilaterally. - Labs CBC & Chem 7: 04/13/21 03:04 Labs: Abnormal Lab Results - Last 24 Hours (Table) 04/13/21 Range/Units 03:04 RBC 3.48 L (4.10-5.20) X 10*6/uL Hgb 10.8 L (12.0-15.0) g/dL Hct 33.7 L (37.2-46.3) % Neutrophils # 8.08 H (1.80-7.70) X 10*3/uL Lymphocytes # 0.67 L (0.90-5.00) X 10*3/uL Assessment and Plan Assessment: Left severe glenohumeral joint osteoarthrosis with large retracted rotator cuff tear Postoperative day 1 status post reverse left total shoulder arthroplasty Plan: 1. Left severe glenohumeral joint osteoarthrosis with large retracted rotator cu ff tear - surgery performed yesterday, 04/12/2021 - reverse left total shoulder arthroplasty. Patient stable at bedside this morning. Plan discharge home today 2. Appreciate medical management 3. Pain management - [place]; Dilaudid only when needed. Going home with [place] 7.5 mg/325mg 4. GI prophylaxis - senna in hospital. Going home with Colace 5. DVT prophylaxis - aspirin 325 mg daily 30 days 6. PT/OT - nonweightbearing left arm. Keep arm in sling at all times. Weight-bear as tolerated bilateral lower extremities 7. Encourage incentive spirometer use 8. Discharge planning - plan discharge home today, 04/13/2021. Time with Patient: Less than 30
[2021-04-13 12:46] VITALS: BP 152/90; PULSE 84; RESP 20; TEMP 98.2
--- NOTE | 2021-04-13 15:52 | P.PN ---
Subjective Progress Note Date: 04/13/21 Progress note dictation Date of service 04/13/2021 Dr. Sanchez. Mrs. Lopes 75 years old -[place]ian female underwent left shoulder arthroplasty by Dr. Torres. She did well and she wearing the splint. She has no complain no cough no fever no chills and no chest pain and she was discharged today after the orthopedic surgeon. I did spoke with Mrs. Lopes and advised her to continue annual her current medication at home and she will be following and see me in one week and she had already appointment. Today her hemoglobin is 10.8 with a hematocrit 33.7 with the postoperative anemia will be corrected as outpatient. Temperature today 90 8.2F oral, her pulse rate 84 per minute regular normal and her respiratory rate 20/m nonlabored. And Blood pressure is 110/64 and 152/90 with the fluctuation with the excitation of going home her oxygen saturation 96% on room air. On exam: Patient conscious alert oriented 3 and she is careful with her left shoulder and the gave her already the medication the pain killer and also the gave her Valium I did also note to the patient to avoid the Valium with her medication for the depression except if she really anxious to avoid any adverse effect. Head was normocephalic and atraumatic pupil was equal reactive conjunctiva was pink sclera was nonicteric. Neck was supple no JVD no thyromegaly no lymphadenopathy. Chest was clear to auscultation percussion. Normal breath sounds Heart regular sinus rhythm Abdomen soft positive bowel sounds extremities no edema positive pulses Neurologically stable. Assessment: #1 status post left shoulder arthroplasty. #2 underlying history of hypertension and hypertensive heart disease. #3 history of major depressive disorder she has been treated with the [facility] and she will will continue follow the. Plan: #1 patient advised to follow-up with Dr. Torres for her left shoulder. #2 will see her in one week #3 she will continue her home medication including antidepressant medication and if she has any further problem or complaint in regards of her medicine she will call us in the office. Otherwise we'll see her next week end of dictation Objective - Vital Signs Vital signs: Vital Signs Temp 98.2 F 04/13/21 12:45 Pulse 84 04/13/21 12:45 Resp 20 04/13/21 12:45 BP 152/90 04/13/21 12:45 Pulse Ox 96 04/13/21 12:45 Intake & Output 04/12/21 04/13/21 04/13/21 18:59 06:59 18:59 Intake Total 1081 Output Total 450 Balance 631 Weight 86.8 kg Intake: IV 851 Intake, IV Titration 50 Amount ceFAZolin 2 gm In Sodium 50 Chloride 0.9% 50 ml @ 100 mls/hr IVPB Q8HR BRANDI Rx# :[id number] Oral 180 Output: Urine 350 Estimated Blood Loss 100 Other: Voiding Method Toilet Toilet # Voids 1 - Labs CBC & Chem 7: 04/13/21 03:04 Labs: Abnormal Lab Results - Last 24 Hours (Table) 04/13/21 Range/Units 03:04 RBC 3.48 L (4.10-5.20) X 10*6/uL Hgb 10.8 L (12.0-15.0) g/dL Hct 33.7 L (37.2-46.3) % Neutrophils # 8.08 H (1.80-7.70) X 10*3/uL Lymphocytes # 0.67 L (0.90-5.00) X 10*3/uL
== END 2021-04-13 16:00 | disposition home or self-care (01) ==
LOC: OR 06:02 → 4SSUR 10:21 → OR 04-13 16:00
PROVIDERS: ATTEND Orthopaedic Surgery
DX: M19.012 Primary osteoarthritis, left shoulder (principal); M75.122 Complete rotator cuff tear or rupture of left shoulder, not specified as traumatic; J45.909 Unspecified asthma, uncomplicated; I10 Essential (primary) hypertension; F32.A Depression, unspecified; Z98.890 Other specified postprocedural states; Z20.822 Contact with and (suspected) exposure to COVID-19; Z98.891 History of uterine scar from previous surgery; Z96.641 Presence of right artificial hip joint; Z96.653 Presence of artificial knee joint, bilateral; Z80.9 Family history of malignant neoplasm, unspecified; Z82.49 Family history of ischemic heart disease and other diseases of the circulatory system; Z79.82 Long term (current) use of aspirin; Z79.891 Long term (current) use of opiate analgesic; Z79.899 Other long term (current) drug therapy; Z88.8 Allergy status to other drugs, medicaments and biological substances; Z88.1 Allergy status to other antibiotic agents; Z91.018 Allergy to other foods
CPT/HCPCS: 64415; 76942; 85025; 88300; 87635; 73020; 23472; C1713; C1776; J2250; J0690 ×2; J2405; J1170 ×2

== ENCOUNTER → 2021-06-28 | Outpatient (CLI) | payer MEDICARE ==
--- NOTE | 2021-06-28 12:21 | MM ---
Reason for exam: follow-up at short interval from prior study. Last mammogram was performed 9 months ago. History: Patient is postmenopausal and had first child at age 32. MG discontinued stereo core LT of the left breast, November 21, 2019. Benign right US cyst aspiration of the right breast, August 19, 2009. Benign right breast US guided needle local of the right breast, August 19, 2009. Benign excisional biopsy of the left breast. Physical Findings: A clinical breast exam by your physician is recommended on an annual basis and results should be correlated with mammographic findings. MG 3D Diag Mammo W/Cad LASHAE Bilateral CC and MLO view(s) were taken. Prior study comparison: September 15, 2020, bilateral MG 3d diag mammo w/cad LASHAE. October 16, 2019, bilateral MG 3d diag mammo w/cad LASHAE. There are scattered fibroglandular densities. Benign vascular calcifications. Benign oil cyst calcifications. Multiple grouped calcifications on the left noted to have increased between 2019 and 2020 are unchanged for the last 10 months. Results were given to the patient verbally at the time of the exam. ASSESSMENT: Probably benign, BI-RAD 3 RECOMMENDATION: Follow-up diagnostic mammogram of both breasts in 1 year.
== END | disposition home or self-care (01) ==
LOC: RADMAMWWP 11:13
PROVIDERS: ATTEND Internal Medicine
DX: R92.1 Mammographic calcification found on diagnostic imaging of breast (principal); Z78.0 Asymptomatic menopausal state
CPT/HCPCS: 77066; G0279; 77062

== ENCOUNTER 2021-07-21 10:05 | Day surgery (SDC) | payer MEDICARE ==
[2021-07-19 14:45] VITALS: BMI 30.3
--- NOTE | 2021-07-21 08:21 | P.GSHP ---
History of Present Illness H&P Date: 07/21/21 CHIEF COMPLAINT: Colon screen HISTORY OF PRESENT ILLNESS: The patient is a 76-year-old female who presents for colon screen. Lower endoscopy was offered for further evaluation and management. PAST MEDICAL HISTORY: Please see list. PAST SURGICAL HISTORY: Please see list. MEDICATIONS: Please see list. ALLERGIES: Please see list. SOCIAL HISTORY: No illicit drug use FAMILY HISTORY: No reports of Crohn disease or ulcerative colitis. REVIEW OF ORGAN SYSTEMS: CONSTITUTIONAL: No reports of fevers or chills. PHYSICAL EXAM: VITAL SIGNS: Stable GENERAL: Well-developed pleasant in no acute distress. HEENT: No scleral icterus. Extraocular movements grossly intact. Moist buccal mucosa. NECK: Supple without lymphadenopathy. CHEST: Unlabored respirations. Equal bilateral excursions. CARDIOVASCULAR: Regular rate and rhythm. Distal 2+ pulses. ABDOMEN: Soft, nontender, nondistended. MUSCULOSKELETAL: No clubbing, cyanosis, or edema. ASSESSMENT: 1. Colon screen. PLAN: 1. Recommend proceeding with a lower endoscopy Past Medical History Past Medical History: Asthma, Hypertension, Osteoarthritis (OA) Additional Past Medical History / Comment(s): Hayfever, seasonal allergies, chronic back pain, internal hemorrhoids, anemia, Jehovah Witness-No blood. "Unstable on feet". History of Any Multi-Drug Resistant Organisms: None Reported Past Surgical History: Adenoidectomy, Appendectomy, Back Surgery, Bariatric Surgery, Section, Cholecystectomy, Hernia Repair, Hysterectomy, Joint Replacement, Orthopedic Surgery, Tonsillectomy Additional Past Surgical History / Comment(s): Bilateral knee replacements, right hip replacement, Gastric Sleeve, EGDs, colonoscopy, left breast biopsy - benign, right breast excisional biopsy, Section X1, rev TLS 04/12/21, BILAT CATARACTS REMOVED WITH LENS IMPLANTS Past Anesthesia/Blood Transfusion Reactions: Previous Problems w/ Anesthesia Additional Past Anesthesia/Blood Transfusion Reaction / Comment(s): "[place] like an elephant was sitting on my chest, it happened twice." Jehovah Witness, no blood transfusions. "Daughter had reaction to anesthesia, eyes were really red after." Smoking Status: Former smoker - Past Family History Father Family Medical History: Coronary Artery Disease (CAD) Additional Family Medical History / Comment(s): Father is . He had ASHD. Mother Family Medical History: No Reported History Additional Family Medical History / Comment(s): Mother is living and healthy. Medications and Allergies Home Medications Medication Instructions Recorded Confirmed Type Cetirizine HCl [Zyrtec] 10 mg PO QAM 07/29/13 07/19/21 History Quinapril HCl [Accupril] 20 mg PO QAM 12/25/14 07/19/21 History amLODIPine [Norvasc] 5 mg PO QAM 07/03/18 07/19/21 History lamoTRIgine [LaMICtal] 25 mg PO BID 02/02/20 07/19/21 History Escitalopram [Lexapro] 10 mg PO QAM 11/17/20 07/19/21 History Metoprolol Tartrate [Lopressor] 25 mg PO BID 11/17/20 07/19/21 History traZODone HCL [Desyrel] 50 mg PO HS 11/17/20 07/19/21 History hydrALAZINE HCL 25 mg PO BID 03/23/21 07/19/21 History Allergies Allergy/AdvReac Type Severity Reaction Status Date / Time Tetanus Vaccines and Toxoid Allergy Mild Swelling Verified 07/19/21 14:33 tetracycline AdvReac Nausea,ABDOMINAL Verified 07/19/21 14:33 PAIN trout Allergy Mild Rash/Hives Uncoded 07/19/21 14:33
[~2021-07-21 10:05] MED LIST changes: -ACETAMINOPHEN TAB 500 MG TAB PO PRN; +LACTATED RINGERS 1,000 ML IV SCH; +LIDOCAINE 1% (10MG/ML) FOR IV START INTRADERMA PRN; -MELOXICAM 7.5 MG TAB PO PRN; -TRANEXAMIC ACID 1,000 MG in SODIUM CHLORIDE 0.9% 100 ML IVPB PRN
[2021-07-21 10:51] VITALS: TEMP 97.7
[2021-07-21] MEDS ORDERED: PROPOFOL 10 MG/ML 20 ML VIAL IV ONE (11:58)
--- NOTE | 2021-07-21 12:32 | P.PCN ---
Date of Procedure: 07/21/21 Description of Procedure: PREOPERATIVE DIAGNOSIS: Personal history of colon polyps Colonoscopy screening POSTOPERATIVE DIAGNOSIS: Personal history of colon polyps Tubular adenoma ascending colon Internal hemorrhoids, grade 2 OPERATION: Colonoscopy to the ileocecal valve and appendiceal orifice, cecum Colonoscopy with cold forceps biopsy SURGEON: Madiha Douglass MD. ANESTHESIA: MAC. INDICATIONS: The patient is an 76-year-old female who presents personal history of colon polyps. Last colonoscopy 5 years. Benefits and risks were described and informed consent was obtained. DESCRIPTION OF PROCEDURE: The patient had undergone Sutab prep. The patient had been brought into the operating room and laid in the left lateral decubitus position. After adequate intravenous sedation, the rectum was examined with 2% lidocaine jelly. The prostate was unremarkable. External hemorrhoids were encountered. The rectal tone was within normal limits. No lesions were palpated in the rectal vault. An Olympus colonoscope was advanced until the cecum, ileocecal valve and appendiceal orifice were clearly viewed. The prep was fair. No sigmoid diverticulosis was encountered. Colonic polyps were found and removed. No evidence of focal colitis was found. Retroflexion of the scope demonstrated grade 2 internal hemorrhoids without active bleeding or inflammation. The colon was desufflated. The patient had tolerated the procedure well. Withdrawal time was over 6 minutes. FINDINGS: Aronchick preparation quality scale 3 (1-5) Internal hemorrhoids, grade 2 External hemorrhoids, grade 2 No arteriovenous malformations. No sigmoid diverticulosis Removal of 1 polyp: - Cold forceps biopsy at ascending colon colon, 4 mm polyp. No focal colitis. RECOMMENDATIONS: Repeat colonoscopy 3 years, 2024 Plan - Discharge Summary Discharge Rx Participant: No New Discharge Prescriptions: Continue Cetirizine HCl [Zyrtec] 10 mg PO QAM Quinapril HCl [Accupril] 20 mg PO QAM amLODIPine [Norvasc] 5 mg PO QAM lamoTRIgine [LaMICtal] 25 mg PO BID traZODone HCL [Desyrel] 50 mg PO HS Metoprolol Tartrate [Lopressor] 25 mg PO BID Escitalopram [Lexapro] 10 mg PO QAM hydrALAZINE HCL 25 mg PO BID Discharge Medication List Cetirizine HCl [Zyrtec] 10 mg PO QAM 07/29/13 [History] Quinapril HCl [Accupril] 20 mg PO QAM 12/25/14 [History] amLODIPine [Norvasc] 5 mg PO QAM 07/03/18 [History] lamoTRIgine [LaMICtal] 25 mg PO BID 02/02/20 [History] Escitalopram [Lexapro] 10 mg PO QAM 11/17/20 [History] Metoprolol Tartrate [Lopressor] 25 mg PO BID 11/17/20 [History] traZODone HCL [Desyrel] 50 mg PO HS 11/17/20 [History] hydrALAZINE HCL 25 mg PO BID 03/23/21 [History] Follow up Appointment(s)/Referral(s): Madiha Douglass MD [STAFF PHYSICIAN] - As Needed Patient Instructions/Handouts: Colorectal Polyps (GEN) Activity/Diet/Wound Care/Special Instructions: Repeat colonoscopy in 3 years, 2024. Discharge Disposition: HOME SELF-CARE
[2021-07-21 12:37] VITALS: RESP 16
[2021-07-21 12:52] VITALS: BP 159/83; PULSE 68
== END 2021-07-21 14:05 | disposition home or self-care (01) ==
LOC: ORWHC2ENDO 10:05
PROVIDERS: ATTEND Surgery Plastic and Reconstructive Surgery
DX: Z12.11 Encounter for screening for malignant neoplasm of colon (principal); D12.2 Benign neoplasm of ascending colon; K64.8 Other hemorrhoids; I10 Essential (primary) hypertension; J45.909 Unspecified asthma, uncomplicated; F41.9 Anxiety disorder, unspecified; M19.90 Unspecified osteoarthritis, unspecified site; F32.A Depression, unspecified; Z82.49 Family history of ischemic heart disease and other diseases of the circulatory system; Z87.19 Personal history of other diseases of the digestive system; Z87.891 Personal history of nicotine dependence; Z88.1 Allergy status to other antibiotic agents; Z86.010 Personal history of colon polyps; Z88.7 Allergy status to serum and vaccine; Z90.49 Acquired absence of other specified parts of digestive tract; Z96.641 Presence of right artificial hip joint; Z96.653 Presence of artificial knee joint, bilateral; Z79.899 Other long term (current) drug therapy
CPT/HCPCS: 45380; 88305; J2704

== ENCOUNTER → 2021-08-10 | Outpatient (CLI) | payer MEDICARE ==
--- NOTE | 2021-08-10 16:02 | XR ---
EXAMINATION TYPE: XR chest 2V DATE OF EXAM: 08/10/2021 COMPARISON: 11/18/2019 INDICATION: Cough TECHNIQUE: Frontal and lateral views of the chest are obtained. FINDINGS: The heart size is normal. The pulmonary vasculature is normal. The lungs are clear. IMPRESSION: 1. No acute pulmonary process.
[2021-08-11 01:44] LABS: Basophils # (A) 0.06 X 10*3/uL (0.00-0.10); Basophils % (A) 0.9 %; Eosinophils # (A) 0.04 X 10*3/uL (0.04-0.35); Eosinophils % (A) 0.6 %; HCT 40.2 % (37.2-46.3); Immature Grans, Automated 0.4 %; Lymphocytes % (A) 12.9 %; MCH 30.7 pg (27.0-32.0); MCHC 32.3 g/dL (32.0-37.0); Mean Platelet Volume 11.4 fL (9.5-12.2); Monocytes # (A) 0.43 X 10*3/uL (0.20-1.00); Monocytes % (A) 6.2 %; NRBC Per 100 WBC 0 /100 WBCS (0.0-0.0); Neutrophils # (A) 5.51 X 10*3/uL (1.80-7.70); Platelet Count 283 X 10*3/uL (140-440); RBC 4.23 X 10*6/uL (4.10-5.20); RDW 14.3 % (11.5-14.5); WBC 6.97 X 10*3/uL (4.50-10.00)
== END | disposition home or self-care (01) ==
LOC: LABWHC1 15:01
PROVIDERS: ATTEND Internal Medicine
DX: J06.9 Acute upper respiratory infection, unspecified (principal); J12.9 Viral pneumonia, unspecified; R05.9 Cough, unspecified
CPT/HCPCS: 36415; 71046; 85025; 87502

== ENCOUNTER → 2021-10-27 | Outpatient (CLI) | payer MEDICARE ==
--- NOTE | 2021-10-27 16:53 | CT ---
EXAMINATION TYPE: CT shoulder RT wo con CT DLP: 400.7 mGycm, Automated exposure control for dose reduction was used. DATE OF EXAM: 10/27/2021 4:31 PM COMPARISON: Extremity radiograph 10/17/2021. CLINICAL INDICATION:Female, 76 years old with history of M12.811 OTH SPECIFIC ARTHROPATHIES, NEC, RIG HT VALDO, Rt shoulder rotator cuff arthropathy TECHNIQUE: Axial images were obtained of the right shoulder without the use of IV contrast. Addition al coronal and sagittal reformatted images and soft tissue and bone window were obtained for review. 3-D reconstruction was created on a separate workstation. FINDINGS: There is severe degeneration changes of the acromioclavicular joint with os acromiale of th e type II. There is [id number] articulation of the glenoid and humerus. Subchondral cystic changes of the humeral head and glenoid are present as well as the acromion os acromiale. There is loss of th e acromial humeral interval which likely results in full-thickness rotator cuff tear. Atrophy changes of the infraspinatus muscle is present. Muscle volume of the supraspinatus appears to be at least pa rtially atrophic. Multilevel disc degeneration changes of the cervical spine with facet joint arthropathy. IMPRESSION: 1. End-stage osteoarthrosis changes of the right shoulder with findings consistent with full-thickne ss rotator cuff tear. 2. Type II os acromiale 3. Moderate to severe multilevel disc degeneration changes of the spine.
== END | disposition home or self-care (01) ==
LOC: RADCTMAIN 15:54
PROVIDERS: ATTEND Orthopaedic Surgery
DX: M19.011 Primary osteoarthritis, right shoulder (principal); M47.812 Spondylosis without myelopathy or radiculopathy, cervical region

== ENCOUNTER → 2021-11-16 | Outpatient (CLI) | payer MEDICARE | END | disposition home or self-care (01) | LOC: LABPAT 12:16 | PROVIDERS: ATTEND Orthopaedic Surgery | DX: Z01.812 Encounter for preprocedural laboratory examination (principal); M12.811 Other specific arthropathies, not elsewhere classified, right shoulder; Z22.322 Carrier or suspected carrier of Methicillin resistant Staphylococcus aureus | CPT/HCPCS: 87070 ==

== ENCOUNTER 2021-11-25 08:46 | Inpatient (IN) | payer MEDICARE ==
--- NOTE | 2021-11-24 09:23 | P.HPOR ---
History of Present Illness H&P Date: 11/24/21 Chief Complaint: Right shoulder pain The patient is a 76-year-old [id number] retired female who presents with progressive right shoulder pain for the past several years worsening recently. She's having pain with overhead activity and at night despite previous conservative measures. A discussion of the risks and benefits of operative intervention versus continued conservative measures was made with patient. She opted to proceed with surgery. Review of Systems As per HPI Past Medical History Past Medical History: Asthma, Hypertension, Osteoarthritis (OA), Pneumonia, Sleep Apnea/CPAP/BIPAP Additional Past Medical History / Comment(s): Hayfever, seasonal allergies, chronic back pain, hx Sleep Apnea, none since wt loss, internal hemorrhoids, anemia, migraines when she had menses. Jehovah Witness-No blood. "Unstable on feet". History of Any Multi-Drug Resistant Organisms: None Reported Past Surgical History: Adenoidectomy, Appendectomy, Back Surgery, Bariatric Surgery, Section, Cholecystectomy, Hernia Repair, Hysterectomy, Joint Replacement, Orthopedic Surgery, Tonsillectomy Additional Past Surgical History / Comment(s): Bilateral knee replacements, right hip replacement, Gastric Sleeve, EGDs, colonoscopy, left breast biopsy - benign, right breast excisional biopsy, Section X1, bilateral cataracts removed. rev TLS 04/12/21, left shoulder replacement Past Anesthesia/Blood Transfusion Reactions: Previous Problems w/ Anesthesia Additional Past Anesthesia/Blood Transfusion Reaction / Comment(s): "[place] like an elephant was sitting on my chest, it happened twice." Jehovah Witness, no blood transfusions. "Daughter had reaction to anesthesia, eyes were really red after." Past Psychological History: Anxiety, Depression Additional Psychological History / Comment(s): Pt states she lives with her mother and her son and patrizia-in-law. She has hx of depression and states she recently ran out of one of her antidepressants and during that time had increased depression but no thoughts of suicide or plans of suicide. Pt states at the age of 14 yrs she attempted suicide with overdose. No other attempts. Pt is independent. Smoking Status: Former smoker Past Alcohol Use History: Occasional Additional Past Alcohol Use History / Comment(s): Started smoking in 1964 and quit in 1979. Past Drug Use History: None Reported Additional Drug Use History / Comment(s): Pt states she occasionally uses marijuana oils. - Past Family History Father Family Medical History: Coronary Artery Disease (CAD) Additional Family Medical History / Comment(s): Father is . He had ASHD. Mother Family Medical History: No Reported History Additional Family Medical History / Comment(s): Mother is living and healthy. Medications and Allergies Home Medications Medication Instructions Recorded Confirmed Type Cetirizine HCl [Zyrtec] 10 mg PO QAM 07/29/13 08/10/21 History Quinapril HCl [Accupril] 20 mg PO QAM 12/25/14 08/10/21 History amLODIPine [Norvasc] 5 mg PO QAM 07/03/18 08/10/21 History lamoTRIgine [LaMICtal] 25 mg PO BID 02/02/20 08/10/21 History Escitalopram [Lexapro] 10 mg PO QAM 11/17/20 08/10/21 History Metoprolol Tartrate [Lopressor] 25 mg PO BID 11/17/20 08/10/21 History traZODone HCL [Desyrel] 50 mg PO HS 11/17/20 08/10/21 History hydrALAZINE HCL 25 mg PO BID 03/23/21 08/10/21 History Allergies Allergy/AdvReac Type Severity Reaction Status Date / Time Tetanus Vaccines and Toxoid Allergy Mild Swelling Verified 07/19/21 14:33 tetracycline AdvReac Nausea,ABDOMINAL Verified 07/19/21 14:33 PAIN trout Allergy Mild Rash/Hives Uncoded 07/19/21 14:33 Physical Examination - Shoulder right Appearance: effusion Effusion grade: grade 1 Tenderness with palpation: anterior Pain: with forward flexion ROM: forward flexion: 140 degrees ROM: internal rotation: lower lumbar ROM: external rotation: 30 degrees Strength: abduction: 3/5 Strength: external rotation: 3/5 Tests: internal impingement tests: positive Results The patient is a well-developed well-nourished female approximately 5 foot 6, 182 pounds of and more of a habit. HEENT exam is nonfocal, neck supple. On examination the right shoulder she is tender about the anterior subacromial space. She has moderate subacromial crepitus. Impingement test, Neer test, and speed tests are positive. Her distal neurovascular exam appears intact in the right upper extremity. - Diagnostic results Shoulder x-ray: image reviewed (Right shoulder 3 view shows evidence of severe joint space narrowing along with diminished humeral head to acromial distance.) Assessment and Plan Assessment: Right severe rotator cuff arthropathy Plan: I talked to the patient at length regarding her condition along with treatment options. At this point she opts to proceed with surgery. Risks and benefits were discussed at length in layman's terms. We'll plan procedure right reverse total shoulder arthroplasty. Time with Patient: Less than 30
[~2021-11-25 08:46] MED LIST changes: +ACETAMINOPHEN TAB 500 MG TAB PO PRN; +DEXAMETHASONE SOD PHOSPHATE 4 MG/ML 1 ML VIAL IV ONE; +HYDROmorphone 0.5 MG/0.5 ML SYRINGE IVP PRN; -LACTATED RINGERS 1,000 ML IV SCH; -LIDOCAINE 1% (10MG/ML) FOR IV START INTRADERMA PRN; +MELOXICAM 7.5 MG TAB PO PRN; +MIDAZOLAM 2 MG/2 ML VIAL IV PRN; +ONDANSETRON 4 MG/2 ML VIAL IVP ONE; +TRANEXAMIC ACID IN NACL,ISO-OS 1,000 MG in SALINE 1 100ML.BAG IVPB PRN
[2021-11-25] MEDS ORDERED: LIDOCAINE 1% (10MG/ML) FOR IV START INTRADERMA ONE (09:35)
[2021-11-25] MEDS: LACTATED RINGERS 1,000 ML IV SCH (09:35)
[2021-11-25] MEDS ORDERED: DEXAMETHASONE SOD PHOSPHATE 4 MG/ML 1 ML VIAL IV ONE (09:48)
[2021-11-25] MEDS ORDERED: fentaNYL (PF) 50 MCG/ML 2 ML AMP IV ONE (10:02)
[2021-11-25] MEDS ORDERED: MIDAZOLAM 2 MG/2 ML VIAL ONE (10:11)
[2021-11-25] MEDS ORDERED: SUCCINYLCHOLINE CHLORIDE 200 MG/10 ML VIAL IV ONE (10:11)
[2021-11-25] MEDS ORDERED: ePHEDrine 50 MG/ML 1 ML VIAL ONE (10:11)
[2021-11-25] MEDS ORDERED: LIDOCAINE 2% INJ 20 MG/ML (2 ML VIAL) ONE (10:11)
[2021-11-25] MEDS ORDERED: ROPIVACAINE 5 MG/ML 30 ML VIAL ONE (10:11)
[2021-11-25] MEDS ORDERED: PHENYLEPHRINE-0.9% NACL SYG 1,000 MCG/10 ML SYRINGE ONE (10:11)
[2021-11-25] MEDS ORDERED: PROPOFOL 10 MG/ML 20 ML VIAL IV ONE (10:11)
[2021-11-25] MEDS ORDERED: fentaNYL (PF) 50 MCG/ML 2 ML AMP ONE (10:11)
[2021-11-25] MEDS ORDERED: ceFAZolin 1,000 MG in SODIUM CHLORIDE 0.9% 1,000 ML IRRIGATION ONE (10:50)
--- NOTE | 2021-11-25 11:08 | P.ANPRN ---
Procedure Note - Anesthesia - Nerve Block Performed Right Interscalene Single Time Out Performed: Yes (1002) Date of Procedure: 11/25/21 Procedure Start Time: 10:03 Procedure Stop Time: 10:08 Location of Patient: PreOp Indication: Acute Post-Operative Pain, Requested by Surgeon Specifically requested for management of pain by DrJm: Jimmy Brody Sedation Type: Sedate with meaningful contact maintained Preparation: Sterile Prep Position: Supine Catheter: None Needle Types: Pajunk Needle Gauge: 21 Ultrasound used to visualize needle placement: Yes Ultrasound used to observe medication spread: Yes Injectate: 0.5% Ropivacaine (see comment for volume) (30cc) Blood Aspirated: No Pain Paresthesia on Injection Noted: No Resistance on Injection: Normal Image Stored and Saved: Yes Events: Uneventful and Well Tolerated
[2021-11-25] MEDS ORDERED: LACTATED RINGERS 1,000 ML IV ONE (12:06)
[2021-11-25] MEDS ORDERED: HYDROmorphone 0.5 MG/0.5 ML SYRINGE IVP PRN ×2 (12:08)
[2021-11-25] MEDS ORDERED: HYDROcodone/APAP 5-325MG 1 EACH TAB PO PRN (12:08)
[2021-11-25] MEDS ORDERED: SENNOSIDES-DOCUSATE SODIUM 1 EACH TAB PO PRN (12:08)
--- NOTE | 2021-11-25 12:38 | P.OP ---
Date of Procedure: 11/25/21 Preoperative Diagnosis: Severe right rotator cuff arthropathy/glenohumeral joint osteoarthrosis Postoperative Diagnosis: Same Procedure(s) Performed: Right reverse total shoulder arthroplasty Implants: [employer] revers size 9 press-fit humeral stem, 36 mm suture cup, 36+6 articular surface 24+ 2 glenoid base plate, 20 mm central post, 36+4 glenosphere. Surgeon: Jimmy Brody [employer] Operator #1: Michael Mejia Estimated Blood Loss (ml): 100 Pathology: other (Humeral head) Condition: stable Disposition: PACU Indications for Procedure: The patient is a 76-year-old female who presents with progressive right shoulder pain and weakness despite conservative measures. Clinically she is noted to have severe rotator cuff arthropathy involving the right shoulder. A discussion of the risks and benefits of operative intervention versus continued conservati ve measures was made with patient. She opted to proceed with surgery. Operative risks to include infection, neurovascular injury, development of blood clots, possible instability, possible component loosening/failure need for subsequent procedures was discussed. Informed consent was obtained. Operative Findings: As below Description of Procedure: The patient was brought to the operating room, and after induction of general anesthesia was placed in a beachchair position. The bony prominences were appropriately padded. I examined the right shoulder. There was moderate lack of passive forward elevation and external rotation. The right upper extremity was prepped and draped in normal fashion. The bony outlines the coracoid proce ss, distal clavicle, and acromion were outlined with a skin marker. A pulse centimeter deltopectoral incision was made lateral to the coracoid process. Skin was incised sharply. Subcutaneous tissues were divided bluntly. Electrocautery was used for hemostasis. The cephalic vein was identified and gently retracted laterally with the deltoid. The deltopectoral was bluntly developed. Subdeltoid adhesions were then released. The self-retaining retractor was placed. The conjoined tendon was retracted medially and the deltoid laterally. The biceps was identified. Its sheath was opened. A biceps tenotomy was performed along the remaining tendon did retract distally. Pseudocapsule was excised. The subscapularis was peeled from the lesser tuberosity and tagged with #2 Ethibond suture. The shoulder was gently dislocated. The head was then exposed. A starting hole was made in line with the humeral shaft. The canal was reamed by hand up to size 7. There was good distal chatter. The cutting guide was then placed. I planned on 20 of retroversion. The humeral head cut was then made. The bone was removed in one fragment. Residual inferomedial osteophytes were removed flush with the southern ute cortical bone. Attention was then paid towards preparing the glenoid. An anterior and posterior retractors placed. The labrum was released from the 12-6 o'clock position. Remaining biceps was removed as well. A guidepin was placed in the central portion of the glenoid as preoperatively planned.. The reamer was used down to a bleeding bony surface. The central peg hole was drilled. The 24+ 2 baseplate with a 20 mm central post was inserted with good purchase. Inferior, superior, and anterior locking screws the appropriate length were placed. Good purchase was obtained. The 36 mm +4 glenosphere was inserted. This was fully seated. Care was taken to avoid any soft tissue interposition. The locking screw was inserted and appropriately torqued. Attention was then paid towards preparing the proximal humerus. The appropriate broach was placed and 20 of retroversion and was fully seated. The 36 mm epiphyseal reamer was utilized. A size 9 stem with a size 36 epiphysis was placed and 20 of retroversion. Trial reduction was obtained with a 36 mm + 6 articular surface. The shoulder was taken through range of motion. The shoulder was felt to be sta ble in flexion and extension with internal and external rotation. I felt there was adequate muslim of soft tissue tension. The shoulder was gently dislocated. The trial components were then removed. The final size 9 press-fit stem along with a size 36 mm epiphysis was fully seated. There was good rotational stability. The 36 mm + 6 articular surface was impacted. The shoulder again was gently reduced and taken through range of motion. Again it was felt to be stable in all planes. Pulsatile lavage was utilized. The subscapularis was a attached to the lesser tuberosity with #2 Ethibond suture. The deltopectoral interval was closed with interrupted 2-0 Vicryl sutures. The skin was reapproximated with 3-0 subcuticular Prolene suture. Steri-Strips were applied. A sterile dressing was applied. A sling was placed. The patient was awoken from general anesthesia and transferred to recovery room in good condition. Blood loss was estimated at 100 mL. No complications were incurred. Sponge and needle counts were correct at the end the case. Michael CRUZ assisted during the major components of the case to include exposure, glenoid and humeral preparation, implantation, and closure.
--- NOTE | 2021-11-25 12:57 | XR ---
Fluoroscopy History: s/p reverse right total shoulder arthroplasty post-op RT shoulder portable . Glenohumeral prosthesis appears to be well seated with normal alignmen t. Postsurgical soft tissue changes seen.
[2021-11-25] MEDS: HYDROcodone/APAP 5-325MG 1 EACH TAB PO PRN (15:31)
[2021-11-26] MEDS: HYDROcodone/APAP 5-325MG 1 EACH TAB PO PRN ×3 (01:53→20:13)
[2021-11-26] MEDS: LACTATED RINGERS 1,000 ML IV SCH ×2 (07:53→19:59)
[2021-11-26 08:54] LABS: Basophils # (A) 0.03 X 10*3/uL (0.00-0.10); Basophils % (A) 0.4 %; Eosinophils # (A) 0.06 X 10*3/uL (0.04-0.35); Eosinophils % (A) 0.9 %; HCT 32.4 % (37.2-46.3); HGB 10.6 g/dL (12.0-15.0); Immature Grans, Automated 0.3 %; Lymphocytes # (A) 1.11 X 10*3/uL (0.90-5.00); Lymphocytes % (A) 15.9 %; MCH 32.7 pg (27.0-32.0); MCHC 32.7 g/dL (32.0-37.0); Mean Platelet Volume 11.1 fL (9.5-12.2); Monocytes # (A) 0.75 X 10*3/uL (0.20-1.00); Monocytes % (A) 10.7 %; NRBC Per 100 WBC 0 /100 WBCS (0.0-0.0); Neutrophils # (A) 5.02 X 10*3/uL (1.80-7.70); Neutrophils % (A) 71.8 %; Platelet Count 205 X 10*3/uL (140-440); RBC 3.24 X 10*6/uL (4.10-5.20); RDW 13.5 % (11.5-14.5); WBC 6.99 X 10*3/uL (4.50-10.00)
[2021-11-26] MEDS ORDERED: ALBUTEROL NEBULIZED 2.5 MG/3 ML INHALATION PRN (09:22)
[2021-11-26] MEDS ORDERED: ACETAMINOPHEN TAB 500 MG TAB PO PRN (09:22)
[2021-11-26] MEDS ORDERED: traZODone HCL 50 MG TAB PO PRN (09:22)
--- NOTE | 2021-11-26 09:59 | P.PN ---
Subjective Progress Note Date: 11/26/21 Principal diagnosis: Severe right rotator cuff arthropathy/glenohumeral joint osteoarthrosis Patient was seen at bedside this morning resting comfortably sitting up in bed with sling to right upper extremity and dressing present over right shoulder. Patient says she is in moderate amount of pain currently. Patient says she has been up several times since surgery yesterday. Patient says she has urinated since surgery. Patient says she has not had bowel yet, however, patient says she has been passing gas. Patient denies chest pain, fever, shortness breath, nausea, vomiting, change in vision, loss of bowel/bladder control. Objective - Vital Signs Vital signs: Vital Signs Temp 97.8 F 11/26/21 07:17 Pulse 70 11/26/21 07:17 Resp 18 11/26/21 07:17 BP 121/69 11/26/21 07:17 Pulse Ox 97 11/26/21 07:17 FiO2 Intake & Output 11/25/21 11/26/21 11/26/21 18:59 06:59 18:59 Intake Total 1751 Output Total 100 Balance 1651 Weight 86.1 kg Intake: IV 1751 Output: Estimated Blood Loss 100 Other: Voiding Method Toilet # Voids 1 2 - Exam Right shoulder: Incision is clean, dry, and intact. The dressing is in good condition. There is minimal soft tissue swelling and ecchymosis surrounding the medial and lateral aspects of the incision. Sensation is equal, symmetric, bilaterally intact in the upper and lower extremities. Radial pulses are intact, 2+ bilaterally. Patient has full range of motion in left upper extremity and bilateral lower extremities on exam. Patient's full range of motion in right wrist flexion/extension. Right elbow extension/flexion and right shoulder forward elevation, abduction and external/internal rotation exam not performed due to surgery yesterday and patient being in sling. Calf is soft, no tenderness with palpation. Plantar flexion, dorsiflexion, EHL, FHL are intact. Sensory exam to light touch throughout the extremity is intact, dorsal pedis pulses 2+. - Labs CBC & Chem 7: 11/26/21 06:15 Labs: Abnormal Lab Results - Last 24 Hours (Table) 11/26/21 Range/Units 06:15 RBC 3.24 L (4.10-5.20) X 10*6/uL Hgb 10.6 L (12.0-15.0) g/dL Hct 32.4 L (37.2-46.3) % MCV 100.0 H (80.0-97.0) fL MCH 32.7 H (27.0-32.0) pg Assessment and Plan Assessment: Severe right rotator cuff arthropathy/glenohumeral joint osteoarthrosis - Postoperative day #1 status post reverse right total shoulder arthroplasty Plan: 1. Severe right rotator cuff arthropathy/glenohumeral joint osteoarthrosis - reverse right total shoulder arthroplasty performed yesterday, Sunday, 0 11/25/2021. Patient stable at bedside this morning. Patient is in a moderate amount of pain. Plan for discharge home tomorrow, 11/27/2021. 2. Appreciate medical management 3. Pain management - [place]; IV meds only if necessary 4. DVT prophylaxis - aspirin 325 mg daily 5. GI prophylaxis - senna 6. PT/OT - nonweightbearing right upper extremity. Maintain right upper extremity in sling at all times. Weight-bear as tolerated bilateral lower extremities and left upper extremity 7. Discharge planning - discharge home with health services tomorrow, 11/27/2021 Time with Patient: Less than 30
[2021-11-26] MEDS: ASPIRIN 325 MG TAB PO SCH (10:56)
[2021-11-26] MEDS: LORATADINE 10 MG TAB PO SCH ×2 (10:57→11:18)
[2021-11-26] MEDS: amLODIPine 5 MG TAB PO SCH (10:57)
[2021-11-26] MEDS: METOPROLOL TARTRATE 25 MG TAB PO SCH ×2 (10:57→20:13)
[2021-11-26] MEDS: hydrALAZINE HCL 25 MG TAB PO SCH ×2 (10:58→20:12)
[2021-11-26] MEDS: lisinopriL 20 MG TAB PO SCH (11:18)
[2021-11-26] MEDS: ESCITALOPRAM 10 MG TAB PO SCH (11:18)
[2021-11-26] MEDS: lamoTRIgine 25 MG TAB PO SCH ×2 (11:18→21:01)
--- NOTE | 2021-11-26 13:13 | P.CONS ---
History of Present Illness - Reason for Consult Consult date: 11/26/21 (Right shoulder rotator cuff and replacement by Dr. Torres.) Medical management Requesting physician: Jimmy Brody (Medical management) - Chief Complaint Patient admitted electively for right shoulder surgery - History of Present Illness Medical consult requested by Dr. Jimmy Torres orthopedic surgeon for medical management Date of service 07/26/2021. Dictation by Dr. Daniel Sol [facility]. Patient underwent right shoulder reverse total shoulder the arthroplasty on 11/25/[address] Torres.. Patient seen and examined today [id number] resumed her medication and reviewed the med rec. Patient medical history Hypertension was hypertensive heart disease Status post left shoulder arthroplasty in the past by Dr. Torres Advanced osteoarthritis generalized. Intermittent asthma stable Depression and anxiety with questionable bipolar on medication by the p sychiatrist. ALLERGY: Tetanus vaccine and toxoid, tetracycline. Family history noncontributory. Review of system mainly advanced arthritis currently stable with the review of the 14 point. Asthma hypertension osteoarthritis obstructive sleep apnea on BiPAP at home. Hayfever or seasonal ALLERGY chronic back pain weight loss migraine Jehovah witness no blood transfusion. Adenoidectomy, appendectomy, back surgery, bariatric surgery, section, cholecystectomy, hernia repair, hysterectomy, joint replacement, tonsillectomy, orthopedic surgery. Bilateral knee replacement right hip replacement, gastric sleeve, EGD colon, colonoscopy, left of breast biopsy, benign and a right breast excisional biopsy, section 1, bilateral cataract with implant, left shoulder replacement in April 07 Patient live with her mother and her son and [id number] Depression 4 minus smoker started smoking 1964 and quit in 1979 Occasional alcohol intake Family history of coronary artery disease. On exam: Patient conscious alert oriented No respiratory distress no pain except for her post surgery Her vital sign temperature 97.8 F oral pulse 70 beats per minutes regular respiratory rate 18/m nonlabored blood pressure 121/69 with a mean blood pressure 86 Her oxygen saturation on room air 97. Stable vital sign Head was normocephalic and atraumatic pupils equal reactive, oropharynx natural teeth, neck was supple no JVD no thyromegaly no lymphadenopathy trachea midline. Chest is clear to auscultation percussion She had a sling for her right shoulder arthroplasty Heart compensated regular sinus controlled the blood pressure. Abdomen soft. Positive bowel sounds no tenderness. Extremities: Left shoulder scar from previous surgery of arthroplasty, pulses is intact on the lower extremities. No edema. Psychiatry stable mood and insight. Neurologically stable. No lateralizing sign. Assessment: And plan #1 hypertension is controlled #2 she continued on her current medication no evidence of wheezing or asthma exacerbation. #3 patient currently stable medically #4 patient planned by the orthopedic to be discharged home tomorrow I did my med rec for discharge and she will be continued on the same medication with no changes as she is medically stable and she has medication at home #5 pain medication. The orthopedic team and the surgery team. Past Medical History Past Medical History: Asthma, Hypertension, Osteoarthritis (OA), Pneumonia, Sleep Apnea/CPAP/BIPAP Additional Past Medical History / Comment(s): Hayfever, seasonal allergies, chronic back pain, hx Sleep Apnea, none since wt loss, internal hemorrhoids, anemia, migraines when she had menses. Jehovah Witness-No blood. "Unstable on feet". History of Any Multi-Drug Resistant Organisms: None Reported Past Surgical History: Adenoidectomy, Appendectomy, Back Surgery, Bariatric Surgery, Section, Cholecystectomy, Hernia Repair, Hysterectomy, Joint Replacement, Orthopedic Surgery, Tonsillectomy Additional Past Surgical History / Comment(s): Bilateral knee replacements, right hip replacement, Gastric Sleeve, EGDs, colonoscopy, left breast biopsy - benign, right breast excisional biopsy, Section X1, bilateral cataracts removed. rev TLS 04/12/21, left shoulder replacement Past Anesthesia/Blood Transfusion Reactions: Previous Problems w/ Anesthesia Additional Past Anesthesia/Blood Transfusion Reaction / Comm: "[place] like an elephant was sitting on my chest, it happened twice." Jehovah Witness, no blood transfusions. "Daughter had reaction to anesthesia, eyes were really red after." Past Psychological History: Anxiety, Depression Additional Psychological History / Comment(s): Pt states she lives with her mother and her son and patrizia-in-law. She has hx of depression and states she recently ran out of one of her antidepressants and during that time had increased depression but no thoughts of suicide or plans of suicide. Pt states at the age of 14 yrs she attempted suicide with overdose. No other attempts. Pt is independent. Smoking Status: Former smoker Past Alcohol Use History: Occasional Additional Past Alcohol Use History / Comment(s): Started smoking in 1964 and quit in 1979. Past Drug Use History: None Reported Additional Drug Use History / Comment(s): Pt states she occasionally uses marijuana oils. - Past Family History Father Family Medical History: Coronary Artery Disease (CAD) Additional Family Medical History / Comment(s): Father is . He had ASHD. Mother Family Medical History: No Reported History Additional Family Medical History / Comment(s): Mother is living and healthy. Medications and Allergies Home Medications Medication Instructions Recorded Confirmed Type Cetirizine HCl [Zyrtec] 20 mg PO QAM 07/29/13 11/25/21 History Quinapril HCl [Accupril] 20 mg PO QAM 12/25/14 11/25/21 History amLODIPine [Norvasc] 5 mg PO QAM 07/03/18 11/25/21 History lamoTRIgine [LaMICtal] 25 mg PO BID 02/02/20 11/25/21 History Escitalopram [Lexapro] 10 mg PO QAM 11/17/20 11/25/21 History Metoprolol Tartrate [Lopressor] 25 mg PO BID 11/17/20 11/25/21 History traZODone HCL [Desyrel] 50 mg PO HS PRN 11/17/20 11/25/21 History hydrALAZINE HCL 25 mg PO BID 03/23/21 11/25/21 History Acetaminophen [Tylenol Extra 500 mg PO Q6H PRN 11/24/21 11/25/21 History Strength] Albuterol Inhaler [Ventolin Hfa 1 - 2 puff INHALATION Q6H PRN 11/24/21 11/25/21 History Inhaler] Aspirin 325 mg PO BID #21 tab 11/26/21 Rx Aspirin 325 mg PO DAILY tab 11/26/21 Rx Docusate [Colace] 100 mg PO DAILY #30 capsule 11/26/21 Rx HYDROcodone/APAP 5-325MG [[place] 1 - 2 tab PO Q6HR PRN #32 tab 11/26/21 Rx 5-325] HYDROcodone/APAP 5-325MG [[place] 1 each PO Q6HR PRN tab 11/26/21 Rx 5-325] HYDROcodone/APAP 5-325MG [[place] 2 each PO Q6HR PRN tab 11/26/21 Rx 5-325] Sennosides-Docusate Sodium 2 each PO HS PRN tab 11/26/21 Rx [Senokot-S] Allergies Allergy/AdvReac Type Severity Reaction Status Date / Time Tetanus Vaccines and Toxoid Allergy Mild Swelling Verified 11/25/21 09:18 tetracycline AdvReac Nausea,ABDOMINAL Verified 11/25/21 09:18 PAIN trout Allergy Mild Rash/Hives Uncoded 11/25/21 09:18 Physical Exam Vitals: Vital Signs Temp Pulse Resp BP Pulse Ox 11/26/21 07:17 97.8 F 70 18 121/69 97 11/26/21 02:00 98.6 F 76 16 122/75 96 11/25/21 19:20 98.1 F 85 16 112/72 96 11/25/21 14:25 75 18 147/80 95 11/25/21 14:10 76 16 140/82 95 11/25/21 14:00 97.7 F 78 16 150/86 98 11/25/21 13:55 79 16 132/80 95 11/25/21 13:40 75 16 134/78 97 11/25/21 13:25 75 16 137/90 98 11/25/21 13:11 77 16 149/86 99 11/25/21 12:56 77 16 153/90 100 Intake and Output 11/25/21 11/26/21 11/26/21 22:59 06:59 14:59 Other: Voiding Method Toilet # Voids 1 2 Results CBC & Chem 7: 11/26/21 06:15 Labs: Abnormal Lab Results - Last 24 Hours (Table) 11/26/21 Range/Units 06:15 RBC 3.24 L (4.10-5.20) X 10*6/uL Hgb 10.6 L (12.0-15.0) g/dL Hct 32.4 L (37.2-46.3) % MCV 100.0 H (80.0-97.0) fL MCH 32.7 H (27.0-32.0) pg
[2021-11-26] MEDS ORDERED: CALCIUM CARBONATE 500 MG CHEWABLE PO PRN (17:03)
[2021-11-27 02:05] VITALS: RESP 16; TEMP 99.4
[2021-11-27] MEDS: HYDROcodone/APAP 5-325MG 1 EACH TAB PO PRN (05:38)
[2021-11-27 07:41] VITALS: BP 132/82; PULSE 77
--- NOTE | 2021-11-27 09:33 | P.PN ---
Subjective Progress Note Date: 11/27/21 Principal diagnosis: Severe right rotator cuff arthropathy/glenohumeral joint osteoarthrosis Patient was seen at bedside this morning with sling to right upper extremity and dressing present over right shoulder. Patient says her pain is under better control today. Patient says she has been up several times since surgery. Patient says she has urinated since surgery. Patient says she has not had bowel yet, however, patient says she has been passing gas. Patient feels she is ready to go home today. Patient denies chest pain, fever, shortness breath, nausea, vomiting, change in vision, loss of bowel/bladder control. Objective - Vital Signs Vital signs: Vital Signs Temp 99.4 F 11/27/21 07:40 Pulse 77 11/27/21 07:40 Resp 16 11/27/21 07:40 BP 132/82 11/27/21 07:40 Pulse Ox 97 11/27/21 07:40 FiO2 Intake & Output 11/26/21 11/27/21 11/27/21 18:59 06:59 18:59 Intake Total 125 Balance 125 Intake: Oral 125 Other: Voiding Method Toilet Toilet # Voids 4 4 - Exam Right shoulder: Incision is clean, dry, and intact. The dressing is in good condition. There is minimal soft tissue swelling and ecchymosis surrounding the medial and lateral aspects of the incision. Sensation is equal, symmetric, bilaterally intact in the upper and lower extremities. Radial pulses are intact, 2+ bilaterally. Patient has full range of motion in left upper extremity and bilateral lower extremities on exam. Patient's full range of motion in right wrist flexion/extension. Right elbow extension/flexion and right shoulder forward elevation, abduction and external/internal rotation exam not performed due to surgery yesterday and patient being in sling. Calf is soft, no tenderness with palpation. Plantar flexion, dorsiflexion, EHL, FHL are intact. Sensory exam to light touch throughout the extremity is intact, dorsal pedis pulses 2+. - Labs CBC & Chem 7: 11/26/21 06:15 Assessment and Plan Assessment: Severe right rotator cuff arthropathy/glenohumeral joint osteoarthrosis - Postoperative day #2 status post reverse right total shoulder arthroplasty Plan: 1. Severe right rotator cuff arthropathy/glenohumeral joint osteoarthrosis - reverse right total shoulder arthroplasty performed yesterday, 11/25/2021. Patient stable at bedside this morning. discharge home today, 11/27/2021. 2. Appreciate medical management 3. Pain management - [place]; IV meds only if necessary 4. DVT prophylaxis - aspirin 325 mg daily 5. GI prophylaxis - senna 6. PT/OT - nonweightbearing right upper extremity. Maintain right upper extremity in sling at all times. Weight-bear as tolerated bilateral lower extremities and left upper extremity 7. Discharge planning - discharge home with health services today, 11/27/2021 Time with Patient: Less than 30
--- NOTE | 2021-11-27 09:37 | P.DS ---
Providers Date of admission: 11/25/21 08:46 Expected date of discharge: 11/27/21 Attending physician: Jimmy Brody Consults: 11/25/21 12:11 Consult Physician Routine Consulting Provider: Joo Sanchez Reason/Comments: Medical Management s/p reverse right total shoulder arthroplasty Do you want consulting provider notified?: Yes Primary care physician: Joo Sanchez Hospital Course: Date of admission: 11/25/2021 Date of discharge: 11/27/2021 Admission diagnosis: Severe right rotator cuff arthropathy/glenohumeral joint osteoarthrosis Discharge diagnosis: Same Attending physician: Dr. Brody Surgical procedures: Reverse right total shoulder arthroplasty Brief history: Patient is a 76-year-old female with a history of severe right rotator cuff arthropathy/glenohumeral joint osteoarthrosis. At this point patient has failed conservative treatment measures and has opted to proceed with a elective reverse right total shoulder arthroplasty. Hospital course: Details of patient's surgery can be found in operative report. Patient tolerated the procedure well and was subsequently transported to orthopedic floor. Patient's orthopeidc and medical care was provided daily. Patient had daily laboratory tests performed for evaluation of overall blood counts. Patient had daily physical therapy to include strengthening range of motion as well as education with walker ambulation. Patient was treated with aspirin for their postoperative DVT prophylaxis during their inpatient stay. Patient was noted to have a relatively uneventful postoperative course. Patient reported satisfactory pain control with oral pain medications by postoperative day 2. Patient showed satisfactory progress with physical therapy. Patient moved steadily through the program and had no difficulty meeting the goals by postoperative day 2. Given patient's otherwise satisfactory course and having met physical therapy goals, plan is to discharge patient home with health ser vices on postoperative day 2. Discharge condition/disposition: Patient will be discharged home with health services in stable condition. Discharge medications: Instructions are given on resumption of patient's normal daily medications per primary care recommendation, in addition patient will be prescribed Ranger 5 mg/325 mg; Colace; aspirin 325 mg daily 3 weeks. Orthopedic Discharge Instructions: 1. Wound care and infection precautions, keep incision dry and covered while showering, no lotions, creams, moisturizers. No soaking, pools, hot tubs. Do not scrub over incision. 2. Nonweightbearing right upper extremity. Maintain right arm in sling at all times, except while showering. 3. Ice when necessary. Do not exceed 20 minutes per hour with ice pack. 4. While showering, cover incision with Saran wrap. Keep incision clean, dry, intact. 5. Pain meds and anticoagulants per prescription. 6. Pain medication has potential to cause constipation. Increase oral fluid and fiber intake. Contact primary care provider if you have not had a bowel movement within 48 hours after discharge. 7. No anti-inflammatory medication until discussed at first post operative visit, this including Motrin, Aleve, Mobic, Diclofenac. 8. Follow up in office at 2 weeks postop with Clifton Dobson PA-C / Michael Mejia PA-C 9. Follow up with your primary care doctor 7-10 days after discharge. 10. Contact [facility] with any questions, . Keep incision clean, dry, intact. While showering, cover incision with Saran wrap. Medications: Ranger 5 mg/325 mg 12 every 6 hours; aspirin 325 mg daily; Colace Assessment: Severe right rotator cuff arthropathy/glenohumeral joint osteoarthrosis Procedures: Reverse right total shoulder arthroplasty Patient Condition at Discharge: Good Plan - Discharge Summary Discharge Rx Participant: Yes New Discharge Prescriptions: New HYDROcodone/APAP 5-325MG [[place] 5-325] 1 - 2 tab PO Q6HR PRN #32 tab PRN Reason: Pain Aspirin 325 mg PO DAILY tab Sennosides-Docusate Sodium [Senokot-S] 2 each PO HS PRN tab PRN Reason: Constipation Docusate [Colace] 100 mg PO DAILY #30 capsule Aspirin 325 mg PO BID #21 tab HYDROcodone/APAP 5-325MG [[place] 5-325] 2 each PO Q6HR PRN tab PRN Reason: Pain Scale 6 To 10 HYDROcodone/APAP 5-325MG [[place] 5-325] 1 each PO Q6HR PRN tab PRN Reason: Pain Scale 1 To 5 Continue Cetirizine HCl [Zyrtec] 20 mg PO QAM Quinapril HCl [Accupril] 20 mg PO QAM amLODIPine [Norvasc] 5 mg PO QAM lamoTRIgine [LaMICtal] 25 mg PO BID traZODone HCL [Desyrel] 50 mg PO HS PRN PRN Reason: Insomnia Metoprolol Tartrate [Lopressor] 25 mg PO BID Escitalopram [Lexapro] 10 mg PO QAM hydrALAZINE HCL 25 mg PO BID Acetaminophen [Tylenol Extra Strength] 500 mg PO Q6H PRN PRN Reason: Pain Albuterol Inhaler [Ventolin Hfa Inhaler] 1 - 2 puff INHALATION Q6H PRN PRN Reason: Shortness Of Breath Discharge Medication List Cetirizine HCl [Zyrtec] 20 mg PO QAM 07/29/13 [History] Quinapril HCl [Accupril] 20 mg PO QAM 12/25/14 [History] amLODIPine [Norvasc] 5 mg PO QAM 07/03/18 [History] lamoTRIgine [LaMICtal] 25 mg PO BID 02/02/20 [History] Escitalopram [Lexapro] 10 mg PO QAM 11/17/20 [History] Metoprolol Tartrate [Lopressor] 25 mg PO BID 11/17/20 [History] traZODone HCL [Desyrel] 50 mg PO HS PRN 11/17/20 [History] hydrALAZINE HCL 25 mg PO BID 03/23/21 [History] Acetaminophen [Tylenol Extra Strength] 500 mg PO Q6H PRN 11/24/21 [History] Albuterol Inhaler [Ventolin Hfa Inhaler] 1 - 2 puff INHALATION Q6H PRN 11/24/21 [History] Aspirin 325 mg PO BID #21 tab 11/26/21 [Rx] Aspirin 325 mg PO DAILY tab 11/26/21 [Rx] Docusate [Colace] 100 mg PO DAILY #30 capsule 11/26/21 [Rx] HYDROcodone/APAP 5-325MG [[place] 5-325] 1 - 2 tab PO Q6HR PRN #32 tab 11/26/21 [Rx] HYDROcodone/APAP 5-325MG [[place] 5-325] 1 each PO Q6HR PRN tab 11/26/21 [Rx] HYDROcodone/APAP 5-325MG [[place] 5-325] 2 each PO Q6HR PRN tab 11/26/21 [Rx] Sennosides-Docusate Sodium [Senokot-S] 2 each PO HS PRN tab 11/26/21 [Rx] Follow up Appointment(s)/Referral(s): Michael Mejia, PAC [PHYSICIAN PSYCHOTHERAPIST SOCIAL WORKER] - 2 Weeks Activity/Diet/Wound Care/Special Instructions: Orthopedic Discharge Instructions: 1. Wound care and infection precautions, keep incision dry and covered while showering, no lotions, creams, moisturizers. No soaking, pools, hot tubs. Do not scrub over incision. 2. Nonweightbearing right upper extremity. Maintain right arm in sling at all times, except while showering. 3. Ice when necessary. Do not exceed 20 minutes per hour with ice pack. 4. While showering, cover incision with Saran wrap. Keep incision clean, dry, intact. 5. Pain meds and anticoagulants per prescription. 6. Pain medication has potential to cause constipation. Increase oral fluid and fiber intake. Contact primary care provider if you have not had a bowel movement within 48 hours after discharge. 7. No anti-inflammatory medication until discussed at first post operative visit, this including Motrin, Aleve, Mobic, Diclofenac. 8. Follow up in office at 2 weeks postop with Clifton Dobson PA-C / Michael Mejia PA-C 9. Follow up with your primary care doctor 7-10 days after discharge. 10. Contact [facility] with any questions, . Keep incision clean, dry, intact. While showering, cover incision with Saran wrap. Medications: Ranger 5 mg/325 mg 12 every 6 hours; aspirin 325 mg daily; Colace Discharge Disposition: HOME WITH HOME HEALTH SERVICES
[2021-11-27] MEDS: amLODIPine 5 MG TAB PO SCH (09:50)
[2021-11-27] MEDS: METOPROLOL TARTRATE 25 MG TAB PO SCH (09:50)
[2021-11-27] MEDS: ESCITALOPRAM 10 MG TAB PO SCH (09:50)
[2021-11-27] MEDS: hydrALAZINE HCL 25 MG TAB PO SCH (09:50)
[2021-11-27] MEDS: LORATADINE 10 MG TAB PO SCH (09:50)
[2021-11-27] MEDS: ASPIRIN 325 MG TAB PO SCH (09:50)
[2021-11-27] MEDS: lamoTRIgine 25 MG TAB PO SCH (09:50)
[2021-11-27] MEDS: lisinopriL 20 MG TAB PO SCH (09:50)
== END 2021-11-27 12:00 | disposition home or self-care (01) | DRG 483 ==
LOC: 2ORMAIN 08:46 → 4SSUR 12:18
PROVIDERS: ADMIT Orthopaedic Surgery; ATTEND Orthopaedic Surgery
PROC: 0RRJ00Z Replacement of Right Shoulder Joint with Reverse Ball and Socket Synthetic Substitute, Open Approach (ICD-10-PCS; principal; 2021-11-25 10:15)
DX: M19.011 Primary osteoarthritis, right shoulder (principal); I11.9 Hypertensive heart disease without heart failure; F32.A Depression, unspecified; J45.20 Mild intermittent asthma, uncomplicated; G89.29 Other chronic pain; M54.9 Dorsalgia, unspecified; F41.9 Anxiety disorder, unspecified; G47.30 Sleep apnea, unspecified; H40.9 Unspecified glaucoma; G47.00 Insomnia, unspecified; K64.8 Other hemorrhoids; Z79.899 Other long term (current) drug therapy; Z87.891 Personal history of nicotine dependence; Z98.84 Bariatric surgery status; Z96.653 Presence of artificial knee joint, bilateral; Z96.641 Presence of right artificial hip joint; Z96.612 Presence of left artificial shoulder joint; Z91.51 Personal history of suicidal behavior; Z88.1 Allergy status to other antibiotic agents; Z88.7 Allergy status to serum and vaccine; Z91.018 Allergy to other foods
CPT/HCPCS: 64415; 76942; 85025; 88300

== ENCOUNTER 2022-03-06 16:35 | Emergency (ER) | payer MEDICARE ==
[2022-03-06 16:44] VITALS: RESP 18; TEMP 99.1
--- NOTE | 2022-03-06 17:59 | CT ---
EXAMINATION TYPE: CT brain cspine wo con DATE OF EXAM: 03/06/2022 COMPARISON: CT cervical spine 03/10/2018 HISTORY: Fall CT DLP: [id number] mGycm Automated exposure control for dose reduction was used. Images obtained of the brain and cervical spine with no contrast. There is some cerebral cortical atrophy. There is no mass effect or midline shift. No sign of intracr anial hemorrhage. The calvarium is intact. There is normal aeration of the mastoid air cells. The cervical vertebra show some mild straightening. There is disc space narrowing and spur formation from C2 and into the upper thoracic spine. There is extensive anterior bridging osteophyte formation. No compression fracture. Posterior elements are intact. There is variable multilevel cervical spinal stenosis. This is more noticeable at C5-6. Canal narrowed to 5 mm at C5-6. IMPRESSION: Cerebral atrophy. No acute intracranial abnormality. Extensive spondylotic changes in the cervical spine with osteophyte formation and multilevel moderate cervical spinal stenosis. This is likely idiopathic skeletal hyperostosis. Cervical spine not signif icantly different than old exam.
--- NOTE | 2022-03-06 18:02 | XR ---
EXAMINATION TYPE: XR humerus RT DATE OF EXAM: 03/06/2022 COMPARISON: NONE HISTORY: Pain. Fall. TECHNIQUE: 3 views FINDINGS: There is a right shoulder prosthesis. Components appear in anatomic position. There is obli que fracture distal shaft of the humerus. There is some anterior angulation at the fracture site. Det ail limited by overlying soft tissues. Elbow joint not well seen. No obvious dislocation at the elbow joint. IMPRESSION: Acute mildly angulated fracture distal shaft of the humerus.
--- NOTE | 2022-03-06 18:03 | XR ---
EXAMINATION TYPE: XR elbow limited RT DATE OF EXAM: 03/06/2022 COMPARISON: NONE HISTORY: Pain. Fall TECHNIQUE: 2 view FINDINGS: Elbow joint spaces are intact. No elbow joint fracture. No evidence of elbow joint effusion . Radial head is intact. There is oblique fracture distal shaft of the humerus with angulation. Fragments up to 1.7 cm. IMPRESSION: Angulated distal shaft humerus fracture. No acute abnormality of the elbow joint.
--- NOTE | 2022-03-06 18:05 | XR ---
EXAMINATION TYPE: XR forearm RT DATE OF EXAM: 03/06/2022 COMPARISON: NONE HISTORY: Pain. Fall. TECHNIQUE: 2 view FINDINGS: The radius and ulna appear intact. There is mild spurring on the radial head. Elbow joint a ppears intact. There is narrowing and moderate spurring at the first carpometacarpal joint. The carpa l bones appear intact. IMPRESSION: Arthritis at the base of the thumb. Mild osteoarthritis at the radiohumeral joint. No fra cture seen.
[2022-03-06] MEDS ORDERED: HYDROmorphone 1 MG/ML 1 ML SYRINGE IM STA (18:50)
[2022-03-06] MEDS ORDERED: HYDROmorphone 1 MG/ML 1 ML SYRINGE IVP STA ×3 (19:01→21:56)
--- NOTE | 2022-03-06 20:02 | ED ---
General Adult HPI - General Chief complaint: Fall Stated complaint: Fall, arm pain Time Seen by Provider: 03/06/22 16:46 Source: patient, EMS Mode of arrival: EMS Limitations: physical limitation - History of Present Illness Initial comments: Patient is a 76-year-old female presenting with chief complaint of right arm pain. Patient states that she tripped and fell at home. There is no loss of consciousness and she is not on any blood thinners. Patient is unsure if she hit her head or not. No headache or neck pain. No vision or hearing changes. No nausea, vomiting, dizziness, chest pain, difficulty breathing. No numbness or tingling. No discoloration of the extremity. Patient states pain is located mainly between the elbow and shoulder, however does admit to pain in the forearm. She is able to move her fingers. - Related Data Home Medications Medication Instructions Recorded Confirmed lamoTRIgine [LaMICtal] 25 mg PO BID 02/02/20 03/06/22 Escitalopram [Lexapro] 10 mg PO QAM 11/17/20 03/06/22 Metoprolol Tartrate [Lopressor] 25 mg PO BID 11/17/20 03/06/22 traZODone HCL [Desyrel] 50 mg PO HS PRN 11/17/20 03/06/22 hydrALAZINE HCL 25 mg PO BID 03/23/21 03/06/22 Acetaminophen [Tylenol Extra 1,000 mg PO Q6H PRN 11/24/21 03/06/22 Strength] Albuterol Inhaler [Ventolin Hfa 1 - 2 puff INHALATION Q6H PRN 11/24/21 03/06/22 Inhaler] Aspirin [[place] Aspirin EC] 81 mg PO DAILY 03/06/22 03/06/22 Budesonide/Glycopyr/Formoterol 2 puff INHALATION RT-DAILY 03/06/22 03/06/22 [Breztri Aerosphere Inhaler] Cetirizine HCl [Zyrtec] 10 mg PO DAILY 03/06/22 03/06/22 amLODIPine [Norvasc] 5 mg PO DAILY 03/06/22 03/06/22 lisinopriL [Zestril] 20 mg PO DAILY 03/06/22 03/06/22 Allergies Allergy/AdvReac Type Severity Reaction Status Date / Time Tetanus Vaccines and Toxoid Allergy Mild Swelling Verified 03/06/22 20:08 tetracycline AdvReac Nausea,ABDOMINAL Verified 03/06/22 20:08 PAIN trout Allergy Mild Rash/Hives Uncoded 03/06/22 16:44 Review of Systems ROS Statement: Those systems with pertinent positive or pertinent negative responses have been documented in the HPI. ROS Other: All systems not noted in ROS Statement are negative. Past Medical History Past Medical History: Asthma, Hypertension, Osteoarthritis (OA), Pneumonia, Sleep Apnea/CPAP/BIPAP Additional Past Medical History / Comment(s): Hayfever, seasonal allergies, chronic back pain, hx Sleep Apnea, none since wt loss, internal hemorrhoids, anemia, migraines when she had menses. Jehovah Witness-No blood. "Unstable on feet". History of Any Multi-Drug Resistant Organisms: None Reported Past Surgical History: Adenoidectomy, Appendectomy, Back Surgery, Bariatric Surgery, Section, Cholecystectomy, Hernia Repair, Hysterectomy, Joint Replacement, Orthopedic Surgery, Tonsillectomy Additional Past Surgical History / Comment(s): Bilateral knee replacements, right hip replacement, Gastric Sleeve, EGDs, colonoscopy, left breast biopsy - benign, right breast excisional biopsy, Section X1, bilateral cataracts removed. rev TLS 04/12/21, left shoulder replacement Past Anesthesia/Blood Transfusion Reactions: Previous Problems w/ Anesthesia Additional Past Anesthesia/Blood Transfusion Reaction / Comment(s): "[place] like an elephant was sitting on my chest, it happened twice." Jehovah Witness, no blood transfusions. "Daughter had reaction to anesthesia, eyes were really red after." Past Psychological History: Anxiety, Depression Smoking Status: Former smoker Past Alcohol Use History: Occasional Past Drug Use History: None Reported - Past Family History Father Family Medical History: Coronary Artery Disease (CAD) Additional Family Medical History / Comment(s): Father is . He had ASHD. Mother Family Medical History: No Reported History Additional Family Medical History / Comment(s): Mother is living and healthy. General Exam Limitations: physical limitation General appearance: alert, in distress (Patient is in pain) Head exam: Present: atraumatic, normocephalic, normal inspection Eye exam: Present: normal appearance, PERRL, EOMI. Absent: scleral icterus, conjunctival injection, periorbital swelling Neck exam: Present: normal inspection Respiratory exam: Present: normal lung sounds bilaterally. Absent: respiratory distress, wheezes, rales, rhonchi, stridor Cardiovascular Exam: Present: regular rate, normal rhythm, normal heart sounds. Absent: systolic murmur, diastolic murmur, rubs, gallop, clicks Extremities exam: Present: tenderness, normal capillary refill, other (Radial pulse 2+). Absent: full ROM, joint swelling Neurological exam: Present: alert, oriented X3, CN II-XII intact Psychiatric exam: Present: normal affect, normal mood Skin exam: Present: warm, dry, intact, normal color. Absent: rash Course Vital Signs 03/06/22 03/06/22 16:39 19:04 Temperature 99.1 F Pulse Rate 66 68 Respiratory 18 18 Rate Blood Pressure 153/82 128/86 O2 Sat by Pulse 98 100 Oximetry Medical Decision Making - Medical Decision Making Patient is a 76-year-old female presenting with chief complaint of arm pain after a trip and fall. Patient states she is unsure if she hit her head, no loss of consciousness or blood thinners. On physical examination pain is most prominent between the shoulder and elbow. Patient was placed in a splint by EMS and given 8 mg of morphine en route. On physical examination there is tenderness to palpation, patient is neurovascularly intact, radial pulses 2+, admits to full sensation, able to move her fingers. X-ray shows fracture of distal humerus, patient has history of shoulder replacement performed by Dr. Brody in November, fracture is distal to prosthesis. I spoke with Stacey Urena from Dr. Torres's office, she relayed findings to Dr. Torres who recommended transfer to [facility] to Dr. Tesfaye for placement of a plate. I spoke with Dr. Tesfaye who agreed with this plan. Accepting physician is Dr. Guaajrdo. Patient is placed in a posterior arm splint. Patient is agreeable with this plan. I discussed this case with my attending Dr. Bess Disposition Clinical Impression: Humerus distal fracture Disposition: OTHER INSTITUTION NOT DEFINED Condition: Fair Referrals: Nonstaff,Physician [Primary Care Provider] - 1-2 days Time of Disposition: 20:36 - Out of Hospital Transfer - Req. Specs Out of Hospital Transfer - Requested Specifics: Other Emergency Center ([facility]
[2022-03-06 22:07] VITALS: BP 142/82; PULSE 74
== END 2022-03-06 22:25 | disposition other institution (70) ==
LOC: EC 16:35
DX: S42.401A Unspecified fracture of lower end of right humerus, initial encounter for closed fracture (principal); M25.78 Osteophyte, vertebrae; M48.02 Spinal stenosis, cervical region; J45.909 Unspecified asthma, uncomplicated; I10 Essential (primary) hypertension; G47.30 Sleep apnea, unspecified; F41.9 Anxiety disorder, unspecified; F32.A Depression, unspecified; Z87.891 Personal history of nicotine dependence; Z79.82 Long term (current) use of aspirin; Z79.51 Long term (current) use of inhaled steroids; Z79.899 Other long term (current) drug therapy; Z88.7 Allergy status to serum and vaccine; Z88.1 Allergy status to other antibiotic agents; Z91.013 Allergy to seafood; W01.0XXA Fall on same level from slipping, tripping and stumbling without subsequent striking against object, initial encounter; Y93.9 Activity, unspecified; Y92.009 Unspecified place in unspecified non-institutional (private) residence as the place of occurrence of the external cause
CPT/HCPCS: 73060; 73070; 73090; 72125; 70450; 99285; 96374; 96376 ×2; J1170

== ENCOUNTER → 2022-09-27 | Outpatient (CLI) | payer MEDICARE ==
--- NOTE | 2022-09-28 20:32 | MM ---
Reason for Exam: Screening (asymptomatic). Last mammogram was performed 1 year(s) and 3 month(s) ago. Patient History: Menarche at age 11. First Full-Term at age 32. Late child-bearing (after 30). Hysterectomy at age 39. Postmenopausal. Patient has history of breast feeding. Benign Excisional Biopsy on the left side. 08/19/2009, Benign Cyst Aspiration on the right side. 08/19/2009, Benign Excisional Biopsy on the right side. 11/21/2019, MG discontinued stereo core LT on the left side. Risk Values: Anel 5 year model risk: 1.8%. NCI Lifetime model risk: 3.2%. Prior Study Comparison: 10/16/2019 Bilateral Diagnostic Mammogram, [facility]. 09/15/2020 Bilateral Diagnostic Mammogram, [facility]. 06/28/2021 Bilateral Diagnostic Mammogram, [facility]. Tissue Density: There are scattered fibroglandular densities. Findings: Analyzed By CAD. Unchanged bilateral areas of asymmetric density. A few scattered benign oil cyst calcifications on the right. Benign bilateral vascular calcifications and scattered and grouped coarse and round punctate calcifications remain unchanged. There is no suspicious group of microcalcifications or new suspicious mass in either breast. Overall Assessment: Benign, BI-RAD 2 Management: Screening Mammogram of both breasts in 1 year. . Patient should continue monthly self-breast exams. A clinical breast exam by your physician is recommended on an annual basis. This exam should not preclude additional follow-up of suspicious palpable abnormalities. Note on Anel scores and lifetime risk: 1. A Anel score greater than 3% is considered moderate risk. If this is the case, consider specialist referral to assess eligibility for a risk reducing agent. 2. If overall lifetime risk for the development of breast cancer is 20% or higher, the patient may qualify for future screening with alternating mammogram and breast MRI. Electronically signed and approved by: Marcell Lazar M.D. Radiologist
== END | disposition home or self-care (01) ==
LOC: RADMAMWWP 15:46
PROVIDERS: ATTEND Internal Medicine
DX: Z12.31 Encounter for screening mammogram for malignant neoplasm of breast (principal); Z78.0 Asymptomatic menopausal state
CPT/HCPCS: 77063; 77067

== ENCOUNTER → 2023-10-01 | Outpatient (CLI) | payer MEDICARE ==
--- NOTE | 2023-10-07 14:10 | MM ---
Reason for Exam: Screening (asymptomatic). Last screening mammogram was performed 12 month(s) ago. Patient History: Menarche at age 11. First Full-Term at age 32. Late child-bearing (after 30). Hysterectomy at age 39. Postmenopausal. Patient has history of breast feeding. Benign Excisional Biopsy on the left side. 08/19/2009, Benign Cyst Aspiration on the right side. 08/19/2009, Benign Excisional Biopsy on the right side. 11/21/2019, MG discontinued stereo core LT on the left side. Risk Values: Anel 5 year model risk: 1.8%. NCI Lifetime model risk: 3.0%. Prior Study Comparison: 09/15/2020 Bilateral Diagnostic Mammogram, [facility]. 06/28/2021 Bilateral Diagnostic Mammogram, [facility]. 09/27/2022 Bilateral MG 3D screening mammo w/cad, [facility]. Tissue Density: There are scattered areas of fibroglandular density. Findings: Analyzed By CAD. The pattern is symmetrical. Multiple benign-appearing calcifications are present bilaterally. Benign vascular calcifications present. No significant interval changes. Core markers within the right breast. No suspicious groups of microcalcifications, spiculated or lobular masses, architectural distortion or other secondary signs of malignancy are mammographically apparent. Overall Assessment: Benign, BI-RAD 2 Management: Screening Mammogram of both breasts in 1 year. A negative mammogram report should not preclude additional follow up of suspicious palpable abnormalities. Patient should continue monthly self breast exam. A clinical breast exam by your physician is recommended on an annual basis and results should be correlated with mammographic findings. Note on Anel scores and lifetime risk: 1. A Anel score greater than 3% is considered moderate risk. If this is the case, consider specialist referral to assess eligibility for a risk reducing agent. 2. If overall lifetime risk for the development of breast cancer is 20% or higher, the patient may qualify for future screening with alternating mammogram and breast MRI. Electronically signed and approved by: Jacek Garcia D.O. Radiologis
== END | disposition home or self-care (01) ==
LOC: RADMAMWWP 13:47
PROVIDERS: ATTEND Internal Medicine
DX: Z12.31 Encounter for screening mammogram for malignant neoplasm of breast (principal); Z78.0 Asymptomatic menopausal state
CPT/HCPCS: 77063; 77067